=== PATIENT | female | born 1945 | race Caucasian/White ===

== ENCOUNTER → 2020-04-04 12:45 | Outpatient (CLI) | payer MEDICARE, SELFPAY ==
--- NOTE | ~2020-04-04 | MM_ITS ---
EXAMINATION: MM screening [facility] BI w delfino HISTORY: Screening TECHNIQUE: Craniocaudal and mediolateral oblique 3-D tomosynthesis images were obtained and synthetic 2-D images were generated. CAD analysis was submitted and interpreted. COMPARISON: Comparison to multiple prior studies sequentially, with oldest reviewed study dated 12/2014. BREAST PARENCHYMAL COMPOSITION: The breasts are extremely dense, which lowers the sensitivity of mamm ography. FINDINGS: There are developing punctate clustered calcifications in the outer aspect of both breasts, best seen on CC views. There are no suspicious masses or architectural distortion. IMPRESSION: 1. Developing clusters of bilateral breast calcifications. 2. Magnification views are recommended. BI-RADS Category 0: Incomplete: Needs additional imaging evaluation. Reviewed, dictated and finalized at location A.
== END ==
PROVIDERS: PCP Internal Medicine; Visit Provider Nurse Practitioner
DX: Z12.31 Encounter for screening mammogram for malignant neoplasm of breast (principal); R92.8 Other abnormal and inconclusive findings on diagnostic imaging of breast
CPT/HCPCS: 77063; 77067

== ENCOUNTER → 2020-04-19 14:13 | Outpatient (CLI) | payer MEDICARE, SELFPAY ==
--- NOTE | ~2020-04-19 | MM_ITS ---
EXAMINATION: MM diagnostic mammo BI HISTORY: Follow-up breast calcifications TECHNIQUE: Additional 3-D tomosynthesis images of the breasts were performed and synthetic 2-D images were generated. CAD analysis was submitted and interpreted. COMPARISON: Comparison to multiple prior studies sequentially, with oldest reviewed study dated 04/2016. BREAST PARENCHYMAL COMPOSITION: The breasts are extremely dense, which lowers the sensitivity of mamm ography FINDINGS: Bilateral breast calcifications are scattered and relatively monomorphic, likely benign. No suspicious masses or architectural distortion. IMPRESSION: 1. Probable benign bilateral breast calcifications. 2. Recommend 6 month follow-up diagnostic mammogram BI-RADS category 3, probably benign findings. Reviewed, dictated and finalized at location A.
== END ==
PROVIDERS: Visit Provider Obstetrics & Gynecology Gynecology
DX: R92.8 Other abnormal and inconclusive findings on diagnostic imaging of breast (principal)
CPT/HCPCS: 77066

== ENCOUNTER → 2020-12-18 08:04 | Outpatient (CLI) | payer MEDICARE, SELFPAY ==
--- NOTE | ~2020-12-18 | MMUS_ITS ---
EXAMINATION: MM diagnostic yung BI w delfino, US breast BI complete HISTORY: Six-month follow-up of probable benign calcifications TECHNIQUE: ML, MLO and craniocaudal 3-D tomosynthesis images of both breasts were performed and [facility] were generated. Bilateral magnification views. CAD analysis was submitted and interpr eted. High resolution bilateral complete breast ultrasound was performed. COMPARISON: 04/19/2020 bilateral diagnostic digital mammogram BREAST PARENCHYMAL COMPOSITION: The breasts are extremely dense, which lowers the sensitivity of mamm ography. FINDINGS: MAMMOGRAPHIC FINDINGS: Scattered bilateral benign calcifications are noted including occasional calcified microhematomas and multiple benign punctate microcalcifications. Right-sided breast biopsy marker; history of prior benign right breast biopsy. No suspicious mass or architectural distortion or malignant calcification, skin thickening or retract ion is evident. The dense stroma however may obscure masses; bilateral complete breast ultrasound was performed. ULTRASOUND: Right breast: 11:00 5 cm from nipple: Irregular hypoechoic solid lesion measuring 3.1 x 5.6 x 4.2 mm, with some int ernal vascularity on color flow imaging. Ultrasound-guided biopsy is recommended. Left breast: 3:00 5 cm from nipple: There is a circumscribed 4.8 x 5.1 x 3.5 mm hypoechoic lesion with some calcif ications, without internal vascularity or suspicious shadowing 4:00 5 cm from nipple: 2.4 x 2.9 x 3.8 mm simple cyst with through transmission posterior enhancement IMPRESSION: 1. Irregular hypoechoic up to 5.6 mm lesion with internal vascularity at right breast 11:00 5 cm from nipple 2. Ultrasound-guided biopsy of right breast 11:00 lesion is recommended. BI-RADS category 4, suspicious findings. Dr. Toney telephoned the report and ultrasound guided biopsy recommendation on 12/18/2020 at 1015 hours to Nurse Yeimy. Reviewed, dictated and finalized at location [facility]. IMPRESSION: 1. Irregular hypoechoic up to 5.6 mm lesion with internal vascularity at right breast 11:00 5 cm from nipple 2. Ultrasound-guided biopsy of right breast 11:00 lesion is recommended. BI-RADS category 4, suspicious findings. Dr. Toney telephoned the report and ultrasound guided biopsy recommendation on at 1015 hours to Nurse Yeimy.
== END ==
PROVIDERS: Visit Provider Nurse Practitioner
DX: R92.8 Other abnormal and inconclusive findings on diagnostic imaging of breast (principal)
CPT/HCPCS: 76641; 77062; 77066; G0279

== ENCOUNTER 2021-10-04 10:34 | Emergency (ER) | payer MEDICARE, SELFPAY ==
[2021-10-04 10:55] VITALS: BP 146/73; PULSE 84; RESP 20; TEMP 36.7; O2SAT 99
--- NOTE | 2021-10-04 11:05 | ED.GENADULT ---
HPI - General Adult General Chief complaint: Weakness Stated complaint: fatigue Source: patient Mode of arrival: ambulatory Limitations: no limitations History of Present Illness HPI narrative: 76-year-old female presented for complaint of worsening weakness, abdominal pain and diarrhea for over 2 weeks. States I am not functioning right today. She states she has lost 3 pounds in the 2 weeks and has to be careful eating due to food causing worsening abdominal pain and diarrhea. Endorses chronic sinus congestion, scheduled with ENT. Endorses upper back rash x2 weeks, applying calamine lotion with relief, no pain or drainage to lesions. She denies nausea, vomiting, hematochezia or melena, dysuria, frequency, fever or chills, chest pain, shortness of breath. UTD colonoscopy 2 years per pt. Hx partial hysterectomy. Related Data Home Medications Medication Instructions Recorded Confirmed calcium polycarbophil 625 mg tablet 1,250 mg PO DAILY 11/30/19 10/04/21 voqhmthe-edm-gkgnm acid 0.4 1 tablet PO DAILY 11/30/19 09/11/21 mg-lycopene 300 mcg-lutein 250 mcg tablet ergocalciferol (vitamin D2) 50,000 See Rx Instructions PO .COMPLEX 02/27/21 10/04/21 unit tablet estradiol 0.5 mg tablet 0.5 mg PO DAILY 02/27/21 10/04/21 Allergies Allergy/AdvReac Type Severity Reaction Status Date / Time amoxicillin Allergy Unknown Unknown Verified 10/04/21 11:03 naproxen Allergy Unknown unknown Verified 10/04/21 11:03 Penicillins Allergy Unknown unknown Verified 10/04/21 11:03 Sulfa (Sulfonamide Allergy Unknown unknown Verified 10/04/21 11:03 Antibiotics) sulfanilamide Allergy Unknown Unknown Verified 10/04/21 11:03 Review of Systems Review of Systems: CONSTITUTIONAL: Endorses fatigue/weakness. Denies body aches, fever, chills, or sweats. EYES: Denies visual changes, redness, or discharge. ENT: Endorses chronic rhinorrhea, congestion denies sore throat, or otalgia. CARDIOVASCULAR: Denies chest pain, palpitations, or edema. RESPIRATORY: Denies cough or dyspnea. GASTROINTESTINAL: Endorses abdominal pain, diarrhea denies nausea, vomiting GENITOURINARY: Denies dysuria or hematuria. SKIN: Endorses rash, itching MUSCULOSKELETAL: Denies back pain, joint pain, or myalgia. NEUROLOGIC: Denies headache, numbness, tingling, or weakness. PSYCH: Denies depression or anxiety. All systems reviewed & are unremarkable except as noted in HPI and below PMFSH Past Medical History Medical History Left shoulder pain Rotator cuff tendonitis Family History Family History Sibling Family history of schizophrenia Family history of lung cancer Father Family history of alcoholism Family history of chronic obstructive pulmonary disease Patient's father is Mother Family history of diabetes mellitus in first degree relative Other Diabetes mellitus Family history of kidney disease Family history of mental disorder Hypertension Social History Social History Smoking status: Never smoker Alcohol intake: never Substance use: never Gender identity (if verbalized by the patient): Female Comments At time of signature, I have reviewed and agree with nursing past medical, surgical, social and family history unless otherwise noted. Please see nursing chart for further information. Exam Narrative: GENERAL: Ill-appearing, well-nourished, in no acute distress. HEAD: Normocephalic, atraumatic. EYES: EOMI. No redness or drainage. Conjunctivae normal. ENT: Mucous membranes pink and dry. NECK: Normal AROM. Supple. CHEST: No respiratory distress. Clear to auscultation. HEART: Regular rate and rhythm. No murmur appreciated. Normal peripheral pulses. ABDOMEN: Soft, Tender to LLQ, nondistended, normal active bowel sounds. MUSCULOSKELETAL: No bony tend
== END 2021-10-04 11:31 | disposition short-term general hospital (02) ==
PROVIDERS: Emergency Provider Nurse Practitioner Family; PCP Internal Medicine
DX: R10.9 Unspecified abdominal pain (principal); I10 Essential (primary) hypertension; E03.9 Hypothyroidism, unspecified; Z90.711 Acquired absence of uterus with remaining cervical stump
CPT/HCPCS: 99212; G0463

== ENCOUNTER 2021-10-04 11:50 | Emergency (ER) | payer MEDICARE, SELFPAY ==
[2021-10-04] VITALS (7 sets, daily range): BP systolic 136–179; BP diastolic 46–74; PULSE 66–78; RESP 15–18; TEMP 36.3; O2SAT 99–100
--- NOTE | ~2021-10-04 | CT_ITS ---
EXAMINATION: CT abdomen pelvis w con DATE: 10/04/2021 13:13 INDICATION: Abdominal pain, diarrhea, weakness. TECHNIQUE: Computed tomography (CT) of the abdomen and pelvis was performed with 100 cc Omnipaque 350 intravenous contrast. Automated exposure control and iterative reconstruction technique were employe d. Exam dose: 222.74 mGy-cm total exam DLP. COMPARISON: None. FINDINGS: Mild discoid atelectasis or scarring at the bases in the lower lobes. Heart size is normal. No pericardial or pleural effusion. The gallbladder is present. No bile duct or pancreatic duct dilatation is evident. No hepatic, splenic, pancreatic, adrenal space-occupying mass lesion. 6 mm left renal cyst. No renal mass lesion is evident otherwise. No urinary tract calculus or hydroureteronephrosis. There is calcification of the abdominal aorta but no aneurysm. No intraperitoneal or retroperitoneal or pelvic mass lesion or adenopathy or ascites. No evidence of appendicitis. Diverticulosis of sigmoid colon; no CT evidence of diverticulitis. No steve wel obstruction or intraperitoneal free air is detected. Status post hysterectomy. Prominent osteoarthritic change of both hips. IMPRESSION: Diverticulosis of the colon; no CT evidence of diverticulitis No bowel obstruction or free air Left renal 6 cm cyst Reviewed, dictated and finalized at [facility]. Reviewed, dictated and finalized at location [facility]. RIFUGAL SCREEN TENDER
--- NOTE | ~2021-10-04 | XR_ITS ---
XR chest 1V portable DATE: 10/04/2021 12:33 INDICATION: Cough. Weakness. Diminished appetite. TECHNIQUE: 2 portable upright AP views on 10/04/2021 at 1226 and 1227 hours COMPARISON: 12/09/2013 AP chest FINDINGS: Normal heart size. Bilateral hyperinflation. No pulmonary infiltrate or consolidation, pleu ral effusion or pulmonary vascular congestion or pneumothorax. IMPRESSION: Bilateral hyperinflation; no active cardiopulmonary disease Reviewed, dictated and finalized at location [facility]. P MANAGER
--- NOTE | 2021-10-04 12:11 | ECG_ITS ---
Measurements Intervals [place] Rate: 68 P: 86 VA: 157 QRS: -12 QRSD: 81 T: 40 QT: 373 QTc: 399 Interpretive Statements SINUS RHYTHM ATRIAL PREMATURE COMPLEXES BASELINE ARTIFACT- I, II, III, AVR, AVL, AVF, V1-V6 BORDERLINE ECG Electronically Signed On 10-05-2021 8:04:12 PULMONOLOGY PHYSICIAN by Chito Wilks D.O.
--- NOTE | 2021-10-04 12:18 | ED.WEAKNESS ---
HPI - Weakness General Chief complaint: Weakness Stated complaint: abd pain since 09/19 Time Seen by Provider: 10/04/21 12:04 Source: RN notes reviewed History of Present Illness HPI Narrative: Patient presents emergency department from urgent care for abdominal pain diarrhea. Patient states over the past 2 weeks she has been having abdominal pain described as cramping is diffuse throughout the abdomen states is associated with diarrhea over the past 2 weeks with several episodes of diarrhea a day states that when she eats the symptoms do become worse she denies any nausea or vomiting she denies any fevers or chills chest pain shortness of breath or any other symptoms patient going to urgent care initially and was referred to the ER for further evaluation patient states that diarrhea has been improving over the past several days Related Data Home Medications Medication Instructions Recorded Confirmed calcium polycarbophil 625 mg tablet 1,250 mg PO DAILY 11/30/19 10/04/21 gultbngo-nxl-dxopd acid 0.4 1 tablet PO DAILY 11/30/19 10/04/21 mg-lycopene 300 mcg-lutein 250 mcg tablet ergocalciferol (vitamin D2) 50,000 See Rx Instructions PO .COMPLEX 02/27/21 10/04/21 unit tablet estradiol 0.5 mg tablet 0.5 mg PO DAILY 02/27/21 10/04/21 Allergies Allergy/AdvReac Type Severity Reaction Status Date / Time amoxicillin Allergy Unknown Unknown Verified 10/04/21 11:54 naproxen Allergy Unknown unknown Verified 10/04/21 11:54 Penicillins Allergy Unknown unknown Verified 10/04/21 11:54 Sulfa (Sulfonamide Allergy Unknown unknown Verified 10/04/21 11:54 Antibiotics) sulfanilamide Allergy Unknown Unknown Verified 10/04/21 11:54 Review of Systems Review of Systems: Gen.: Denies fevers or chills ENT: Denies congestion Respiratory: Denies shortness of breath or cough CV: Denies chest pain or palpitations GI: See HPI denies burning, urgency, frequency or hematuria Musculoskeletal: Denies back pain or muscle pain Neuro: Reports weakness Skin: Denies rash Except as documented, all other systems reviewed and negative [facility] Past Medical History Medical History (Updated 10/04/21 @ 15:01 by Cristian Sargent DO) Left shoulder pain Rotator cuff tendonitis Family History Family History Sibling Family history of schizophrenia Family history of lung cancer Father Family history of alcoholism Family history of chronic obstructive pulmonary disease Patient's father is Mother Family history of diabetes mellitus in first degree relative Other Diabetes mellitus Family history of kidney disease Family history of mental disorder Hypertension Social History Social History Smoking status: Never smoker Alcohol intake: never Substance use: never Gender identity (if verbalized by the patient): Female Exam Narrative: APPEARANCE: No acute distress, nontoxic, resting in bed EYES: PERRL HEENT: Normocephalic, atraumatic, OMM RESPIRATORY: No respiratory distress Clear to auscultation bilaterally with no rhonchi wheezing or rales. CARDIOVASCULAR regular rate and rhythm without a murmur Abdomen: Soft nondistended diffusely tender to palpation no rebound or guarding MUSCULOSKELETAl: Moves all extremities. No clubbing, cyanosis or edema. NEURO: Awake and alert. Following commands, speech normal, no focal deficits SKIN:: Warm, dry. No rashes lesions or abrasions PSYCHIATRIC: Normal affect/mood, Course Course Emergency Course: Patient states she is feeling better following IV fluids able to get up and ambulate with no difficulty states she has seen Dr Jeffery per GI in past Patient states that they are feeling much better at this time. States abdominal pain has resolved. Repeat abdominal exam shows the patient's abdomen to be soft and nontender. Discussed with patient results of workup and diagnos
[2021-10-04 12:32] LABS: Basophils Absolute Auto 0.1 K/mm3 (0.0-0.1); Basophils Percent Auto 1.1 % (0.2-1.2); Eosinophils Absolute Auto 0.2 K/mm3 (0-0.3); Eosinophils Percent Auto 3.7 % (0-4.4); Hematocrit 43.2 % (37.0-47.0); Hemoglobin 14.3 g/dL (12.0-15.0); Lymphocytes Absolute Auto 1.72 K/mm3 (0.9-3.2); Lymphocytes Percent Auto 32.1 % (18.3-44.2); Mean Corpuscular HGB Conc 33.1 g/dl (32-36); Mean Corpuscular Hemoglobin 31.4 pg (26-34); Mean Corpuscular Volume 94.9 fl (80-100); Mean Platelet Volume 10.2 fl (7.4-10.4); Monocytes Absolute Auto 0.7 K/mm3 (0.1-0.6); Monocytes Percent Auto 12.5 % (2.6-8.5); Neutrophils Absolute Auto 2.7 K/mm3 (1.3-6.7); Neutrophils Percent Auto 50.6 % (45.5-73.1); Platelet Count Result 164 k/mm3 (150-375); Red Blood Count 4.55 M/mm3 (4.2-5.4); Red Cell Distribution Width 11.5 % (11.5-14.5); White Blood Count 5.4 K/mm3 (4.5-10.0)
[2021-10-04] MEDS: SODIUM CHLORIDE 0.9% IV 1,000 ML 999 ML IV CONT (12:40)
[2021-10-04 12:43] LABS: Alanine Aminotransferase 15 U/L (4-35); Albumin Level 4.5 g/dL (3.5-5.1); Alkaline Phosphatase 87 U/L (38-126); Anion Gap 9 mmol/L (8-16); Aspartate Amino Transferase 29 U/L (14-36); Bilirubin,Total 0.7 mg/dL (0.2-1.3); Blood Urea Nitrogen 13 mg/dL (7-17); Calcium 9.8 mg/dL (8.4-10.2); Carbon Dioxide 27 mmol/L (22-30); Chloride 102 mmol/L (98-107); Estimated CRCL calculation 45 ml/min; Estimated Glomerular Filt Rate > 60; Glucose 105 mg/dL (65-110); Lipase 139 U/L (23-300); Potassium 4.1 mmol/L (3.4-5.0); Sodium 138 mmol/L (137-145)
[2021-10-04 12:46] LABS: INR 0.9; Lactic Acid Reflex 1.3 mmol/L (0.7-2.1); Partial Thromboplastin Time 30.5 SECONDS (22.3-36.8); Prothrombin Time 12.4 Seconds (11.1-14.7)
[2021-10-04 13:37] LABS: Add Urine Microscopic? NO; Appearance Urine Clear (Clear); Bilirubin Urine Negative (Negative); Blood Urine Negative (Negative); Color Urine Colorless (Yellow); Glucose Urine UA Negative (Negative); Ketones Urine Negative (Negative); Leukocyte Esterase Ur Negative LEU/UL (Negative); Nitrate Urine Negative (Negative); Protein Urine Negative (Negative); Specific Grav Ur 1.019 (1.001-1.035); Urobilinogen Urine Negative mg/dL (<2.0)
--- NOTE | 2021-10-04 14:39 | PC.NURSE ---
Pt ambulated well to bathroom and back without assistance
== END 2021-10-04 15:13 | disposition home or self-care (01) ==
PROVIDERS: Emergency Provider Emergency Medicine; PCP Internal Medicine
DX: R19.7 Diarrhea, unspecified (principal); R10.9 Unspecified abdominal pain; R53.1 Weakness; N28.1 Cyst of kidney, acquired; K57.90 Diverticulosis of intestine, part unspecified, without perforation or abscess without bleeding; I49.1 Atrial premature depolarization
CPT/HCPCS: 36415; 71045; 74177; 80053; 81003; 83605; 83690; 83735; 85025; 85610; 85730; 93005; 96360; 99284; J7030; Q9967

== ENCOUNTER → 2021-10-06 09:18 | Outpatient (CLI) | payer MEDICARE, SELFPAY ==
[2021-10-06 13:25] LABS: Influenza A QL RT-PCR Negative (Negative); Influenza B QL RT-PCR Negative (Negative); SARS-CoV-2 RNA PCR Negative
== END ==
PROVIDERS: PCP Internal Medicine; Visit Provider Internal Medicine
DX: R68.89 Other general symptoms and signs (principal); Z20.822 Contact with and (suspected) exposure to COVID-19
CPT/HCPCS: 87502; C9803; U0003; U0005

== ENCOUNTER 2022-04-24 12:01 | Emergency (ER) | payer MEDICARE, SELFPAY ==
[2022-04-24 12:09] VITALS: BP 151/64; PULSE 72; RESP 24; TEMP 36.8; O2SAT 100
--- NOTE | 2022-04-24 12:56 | ED.EAR ---
HPI - Ear Problem General Chief complaint: Ear Stated complaint: Lt Ear Irritation Time Seen by Provider: 04/24/22 12:50 History of Present Illness HPI Narrative: Sandy Arreola is a 76 yo female with a PMH of sinusitis chronic, urinary frequency urinary frequency, GERD, hypertension, who comes to [facility] with pain in her left ear. 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 She tried taking rjzo-wau-nfuuiwo ear medication which helped the pain slightly but has worsened in the last 2 days. 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 She tried taking hhxt-wui-qofmdtg your medication which helped the pain slightly but has worsened in the last 2 days. She has sinus drainage and will be returning to her ENT for that Related Data Home Medications Medication Instructions Recorded Confirmed calcium polycarbophil 625 mg 1,250 mg PO DAILY 11/30/19 04/24/22 tablet (FiberCon) tbnbjyaq-izx-baerv acid 0.4 1 tablet PO DAILY 11/30/19 04/24/22 mg-lycopene 300 mcg-lutein 250 mcg tablet (Centrum Silver) ergocalciferol (vitamin D2) 50,000 See Rx Instructions PO .COMPLEX 02/27/21 04/24/22 unit tablet estradiol 0.5 mg tablet 0.5 mg PO DAILY 02/27/21 04/24/22 azelastine 137 mcg (0.1 %) nasal 137 mcg intranasal Q12H 03/23/22 04/24/22 spray aerosol cranberry 400 mg capsule 400 mg PO DAILY 03/23/22 04/24/22 losartan 100 mg tablet mg 04/24/22 04/24/22 Allergies Allergy/AdvReac Type Severity Reaction Status Date / Time amoxicillin Allergy Unknown Unknown Verified 04/24/22 12:12 naproxen Allergy Unknown unknown Verified 04/24/22 12:12 Penicillins Allergy Unknown unknown Verified 04/24/22 12:12 Sulfa (Sulfonamide Allergy Unknown unknown Verified 04/24/22 12:12 Antibiotics) sulfanilamide Allergy Unknown Unknown Verified 04/24/22 12:12 Review of Systems Review of Systems: CONSTITUTIONAL: Denies fever, chills, sweats. EYES: Denies visual changes, redness, discharge. ENT: has rhinorrhea, has hascongestion, sore throat, left otalgia. CARDIOVASCULAR: Denies chest pain, palpitations, edema. RESPIRATORY: Denies dyspnea, wheezing, cough GASTROINTESTINAL: Denies abdominal pain, nausea, vomiting, diarrhea. GENITOURINARY: Denies dysuria, hematuria, abnormal discharge SKIN: Denies rash or itching. NEUROLOGIC: Denies numbness, or focal weakness. PSYCHIATRIC: Denies anxiety or depression. [facility] Past Medical History Medical History Essential (primary) hypertension Left shoulder pain Rhinorrhea Rotator cuff tendonitis Family History Family History Sibling Family history of schizophrenia Family history of lung cancer Father Family history of alcoholism Family history of chronic obstructive pulmonary disease Patient's father is Mother Family history of diabetes mellitus in first degree relative Other Diabetes mellitus Family history of kidney disease Family history of mental disorder Hypertension Social History Social History Smoking status: Never smoker Alcohol intake: never Substance use: never Gender identity (if verbalized by the patient): Female Comments At time of signature, I agree with nursing past medical, surgical, social and family history. There is no relevant family history pertinent to the presenting complaint. minor some Exam Narrative: GENERAL: This is a well-nourished, well-developed patient, in mild distress. HEAD: normocephalic, atraumatic. EYES: Sclera clear/white. Vision is grossly intact. EARS: External ears normal, auditory canals clear on R, erythema of right erythema of right, without drainage, fluid behind TM. Hearing grossly intact. NOSE: External nose normal without nasal discharge, nares without redness, rhinorrhea. THROAT: Mucous membranes moist, posterior pharynx erythema NECK: Neck supple
== END 2022-04-24 13:15 | disposition home or self-care (01) ==
PROVIDERS: Emergency Provider Nurse Practitioner; PCP Internal Medicine
DX: H92.02 Otalgia, left ear (principal); I10 Essential (primary) hypertension; K21.9 Gastro-esophageal reflux disease without esophagitis
CPT/HCPCS: 99213; G0463

== ENCOUNTER 2022-05-01 17:24 | Emergency (ER) | payer MEDICARE, SELFPAY ==
[2022-05-01 17:38] VITALS: BP 130/56; PULSE 100; RESP 18; TEMP 36.2; O2SAT 100
--- NOTE | 2022-05-01 17:54 | ED.GENADULT ---
HPI - General Adult General Chief complaint: Upper Respiratory Infection Stated complaint: sorethroat,weakness History of Present Illness HPI narrative: Patient is a 76-year-old female who [facility] of a generalized weakness that began approximately 1 week ago. Patient is a poor historian. She does report a sore throat, and one episode of diarrhea that occurred at onset. Patient reports her oral intake to be adequate however, states she sips on water throughout the day. She also reports having to stabilize herself against the wall while walking secondary to weakness. She has also been to week to take her daily walks. She had similar symptoms in September 2021. At that time, she was treated for dehydration in [facility] ER. Related Data Home Medications Medication Instructions Recorded Confirmed calcium polycarbophil 625 mg 1,250 mg PO DAILY 11/30/19 04/24/22 tablet (FiberCon) wvhqorrq-yix-ixtrs acid 0.4 1 tablet PO DAILY 11/30/19 04/24/22 mg-lycopene 300 mcg-lutein 250 mcg tablet (Centrum Silver) ergocalciferol (vitamin D2) 50,000 50,000 unit PO WEEKLY 02/27/21 04/24/22 unit tablet estradiol 0.5 mg tablet 0.5 mg PO DAILY 02/27/21 04/24/22 azelastine 137 mcg (0.1 %) nasal 137 mcg intranasal Q12H 03/23/22 04/24/22 spray aerosol cranberry 400 mg capsule 400 mg PO DAILY 03/23/22 04/24/22 losartan 100 mg tablet mg 04/24/22 04/24/22 Allergies Allergy/AdvReac Type Severity Reaction Status Date / Time amoxicillin Allergy Unknown Unknown Verified 05/01/22 17:53 naproxen Allergy Unknown unknown Verified 05/01/22 17:53 Penicillins Allergy Unknown unknown Verified 05/01/22 17:53 Sulfa (Sulfonamide Allergy Unknown unknown Verified 05/01/22 17:53 Antibiotics) sulfanilamide Allergy Unknown Unknown Verified 05/01/22 17:53 Review of Systems Review of Systems: Denies fever, chills, sweats, LOC, abdominal pain, nausea, vomiting, diarrhea, constipation, chest pain, heart palpitations, shortness of breath PMFSH Past Medical History Medical History Essential (primary) hypertension Left shoulder pain Rhinorrhea Rotator cuff tendonitis Family History Family History Sibling Family history of schizophrenia Family history of lung cancer Father Family history of alcoholism Family history of chronic obstructive pulmonary disease Patient's father is Mother Family history of diabetes mellitus in first degree relative Other Diabetes mellitus Family history of kidney disease Family history of mental disorder Hypertension Social History Social History Smoking status: Never smoker Alcohol intake: never Substance use: never Gender identity (if verbalized by the patient): Female Comments I have reviewed and agree with the patient's past medical, surgical, social, and family hx as documented by the RN. There is no relevant family history pertinent to the presenting complaint. Exam Narrative: GENERAL: Frail-appearing, under-nourished, and in no acute distress. HEAD: Normocephalic, atraumatic. No sinus tenderness or facial swelling appreciated. EYES: PERRLA and EOMI. No evidence of erythema, swelling, or drainage. ENT: Bilateral external ears and ear canals normal. Bilateral TMs are normal.No TM perforation. Nares clear, no rhinorrhea or epistaxis. Bilateral turbinates without erythema/ swelling. Mucous membranes moist and pink. Uvula is midline without erythema and swelling. No evidence of petechial rash, cobblestoning, lesions, ulcers, erythema, swelling, exudates, peritonsillar abscess, tenting, or drooling. Breath odor and voice normal. NECK: Supple. No Lymphadenopathy or nuchal rigidity appreciated. CHEST: Bilateral lung neville are clear to auscultation. No
== END 2022-05-01 18:49 | disposition short-term general hospital (02) ==
PROVIDERS: Emergency Provider Nurse Practitioner Family; PCP Internal Medicine
DX: R53.1 Weakness (principal); Z20.822 Contact with and (suspected) exposure to COVID-19; I10 Essential (primary) hypertension
CPT/HCPCS: 81003; 87081; 87426; 87880; 99213; C9803; G0463

== ENCOUNTER 2022-05-01 19:11 | Emergency (ER) | payer MEDICARE, SELFPAY ==
[2022-05-01] VITALS (13 sets, daily range): BP systolic 101–149; BP diastolic 49–95; PULSE 66–94; RESP 12–20; TEMP 36.2; O2SAT 98–100
--- NOTE | ~2022-05-01 | XR_ITS ---
EXAMINATION: XR chest 2V DATE: 05/01/2022 20:26 INDICATION: Weakness. Nausea, vomiting, and diarrhea. TECHNIQUE: Frontal and lateral views of the chest were obtained. COMPARISON: Chest single view 10/04/2021, CT abdomen and pelvis 10/04/2021 FINDINGS: There is no pneumonia, pleural effusion, or pneumothorax. The heart size is normal. There i s mild chronic anterior wedging of multiple thoracic vertebral bodies. IMPRESSION: 1. No acute cardiopulmonary disease. Reviewed, dictated and finalized at location A.
--- NOTE | ~2022-05-01 | CT_ITS ---
EXAMINATION: CT brain wo con DATE: 05/01/2022 21:22 INDICATION: Dizziness. TECHNIQUE: Computed tomography (CT) of the head was performed without intravenous contrast. The mA wa s adjusted according to patient size. Iterative reconstruction technique was employed. The dose-lengt h product was 529.67 mGy-cm. COMPARISON: Head CT 12/09/2013 FINDINGS: There is no intracranial hemorrhage, acute infarction, or abnormal intracranial mass lesion . The ventricles are normal in size. There is mild mucosal thickening in the ethmoid sinuses. There i s a small right mastoid effusion. The orbits are normal. IMPRESSION: 1. Normal brain. Reviewed, dictated and finalized at location A. IMPRESSION: 1. Normal brain.
--- NOTE | 2022-05-01 20:13 | ECG_ITS ---
Measurements Intervals [place] Rate: 69 P: 89 MN: 153 QRS: 18 QRSD: 76 T: 41 QT: 372 QTc: 399 Interpretive Statements SINUS RHYTHM COMPARED TO ECG 10/04/2021 12:09:42 NO SIGNIFICANT CHANGES Electronically Signed On 05-02-2022 13:36:26 CDT by Sandi Mccabe M.D.
--- NOTE | 2022-05-01 21:09 | ED.WEAKNESS ---
HPI - Weakness General Chief complaint: Weakness Stated complaint: sent from r/o dehydration Time Seen by Provider: 05/01/22 20:57 Source: RN notes reviewed History of Present Illness HPI Narrative: Patient presents emergency department from urgent care for weakness. Patient states she has been feeling generally weak over the past 1 week. She states that she initially had had some pain in her right ear approximately a week ago and gone to urgent care and was diagnosed with fluid in her ear and placed on eardrops at that time this did help. States that she has been continue to feel weak and fatigued she states she has not had the energy to do what she normally does she states she did have some nausea earlier this week but has had no nausea at this time she denies any fevers or chills chest pain shortness of breath cough abdominal pain vomiting or diarrhea. States she was tested for strep and COVID at the urgent care that was negative states she has been having mild sore throat denies any unilateral numbness or weakness Related Data Home Medications Medication Instructions Recorded Confirmed calcium polycarbophil 625 mg 1,250 mg PO DAILY 11/30/19 04/24/22 tablet (FiberCon) zenyzbts-fqu-pbzbs acid 0.4 1 tablet PO DAILY 11/30/19 04/24/22 mg-lycopene 300 mcg-lutein 250 mcg tablet (Centrum Silver) ergocalciferol (vitamin D2) 50,000 50,000 unit PO WEEKLY 02/27/21 04/24/22 unit tablet estradiol 0.5 mg tablet 0.5 mg PO DAILY 02/27/21 04/24/22 azelastine 137 mcg (0.1 %) nasal 137 mcg intranasal Q12H 03/23/22 04/24/22 spray aerosol cranberry 400 mg capsule 400 mg PO DAILY 03/23/22 04/24/22 losartan 100 mg tablet mg 04/24/22 04/24/22 Allergies Allergy/AdvReac Type Severity Reaction Status Date / Time amoxicillin Allergy Unknown Unknown Verified 05/01/22 19:48 naproxen Allergy Unknown unknown Verified 05/01/22 19:48 Penicillins Allergy Unknown unknown Verified 05/01/22 19:48 Sulfa (Sulfonamide Allergy Unknown unknown Verified 05/01/22 19:48 Antibiotics) sulfanilamide Allergy Unknown Unknown Verified 05/01/22 19:48 Review of Systems Review of Systems: Gen.: Denies fevers or chills Eyes: Denies eye pain or visual change ENT: Denies congestion Respiratory: Denies shortness of breath or cough CV: Denies chest pain or palpitations GI: Denies abdominal pain reports nausea earlier this week but none at this timeemesis or diarrhea Musculoskeletal: Denies back pain or muscle pain Neuro: Reports weakness Skin: Denies rash Except as documented, all other systems reviewed and negative [facility] Past Medical History Medical History Essential (primary) hypertension Left shoulder pain Rhinorrhea Rotator cuff tendonitis Family History Family History Sibling Family history of schizophrenia Family history of lung cancer Father Family history of alcoholism Family history of chronic obstructive pulmonary disease Patient's father is Mother Family history of diabetes mellitus in first degree relative Other Diabetes mellitus Family history of kidney disease Family history of mental disorder Hypertension Social History Social History Smoking status: Never smoker Alcohol intake: never Substance use: never Gender identity (if verbalized by the patient): Female Exam Narrative: APPEARANCE: No acute distress, nontoxic, resting in bed EYES: EOMI HEENT: Normocephalic, atraumatic, right ear with cerumen impaction left TM is normal in appearance nares patent oral mucosa moist erythema or exudate posterior pharynx uvula midline no trismus tolerating own secretions RESPIRATORY: No respiratory distress Clear to auscultation bilaterally with no rhonchi wheezing or rales. CARDIOVASCULAR: Regular rate and rhythm without murmurs rubs or
[2022-05-01] MEDS: SODIUM CHLORIDE 0.9% IV 1,000 ML 999 ML IV CONT (21:11)
[2022-05-01 21:16] LABS: Basophils Absolute Auto 0.1 K/mm3 (0.0-0.1); Basophils Percent Auto 0.9 % (0.2-1.2); Eosinophils Absolute Auto 0.2 K/mm3 (0-0.3); Eosinophils Percent Auto 2.8 % (0-4.4); Hematocrit 45.7 % (37.0-47.0); Hemoglobin 14.9 g/dL (12.0-15.0); Immature Granulocyte Absolute 0.01 K/mm3 (0.00-0.031); Immature Granulocyte Percent A 0.2 % (0-0.5); Lymphocytes Absolute Auto 1.95 K/mm3 (0.9-3.2); Mean Corpuscular HGB Conc 32.6 g/dl (32-36); Mean Corpuscular Volume 95.2 fl (80-100); Mean Platelet Volume 10.1 fl (7.4-10.4); Monocytes Absolute Auto 0.7 K/mm3 (0.1-0.6); Monocytes Percent Auto 12.9 % (2.6-8.5); Neutrophils Absolute Auto 2.8 K/mm3 (1.3-6.7); Neutrophils Percent Auto 49.2 % (45.5-73.1); Platelet Count Result 193 k/mm3 (150-375); Red Cell Distribution Width 11.9 % (11.5-14.5); White Blood Count 5.7 K/mm3 (4.5-10.0)
[2022-05-01 21:26] LABS: Prothrombin Time 12.3 Seconds (11.1-14.7)
[2022-05-01 21:27] LABS: Partial Thromboplastin Time 29.9 SECONDS (22.3-36.8)
[2022-05-01 21:28] LABS: Alanine Aminotransferase 15 U/L (6-35); Albumin Level 4.9 g/dL (3.5-5.1); Alkaline Phosphatase 85 U/L (38-126); Anion Gap 9 mmol/L (8-16); Aspartate Amino Transferase 37 U/L (14-36); Bilirubin,Total 0.7 mg/dL (0.2-1.3); Blood Urea Nitrogen 14 mg/dL (7-17); Calcium 9.6 mg/dL (8.4-10.2); Carbon Dioxide 28 mmol/L (22-30); Chloride 102 mmol/L (98-107); Creatine Kinase 35 U/L (30-135); Estimated CRCL calculation 44 ml/min; Estimated Glomerular Filt Rate > 60; Glucose 106 mg/dL (65-110); Lipase 46 U/L (23-300); Potassium 4.3 mmol/L (3.4-5.0); Sodium 139 mmol/L (137-145)
[2022-05-01 21:54] LABS: SARS-CoV-2 RNA PCR Negative
--- NOTE | 2022-05-01 23:04 | PC.NURSE ---
Patient ambulated to the bathroom to attempt to provide a urine specimen. Patient ambulated with a steady unassisted gait.
[2022-05-01 23:24] LABS: Appearance Urine Clear (Clear); Bilirubin Urine Negative (Negative); Color Urine Yellow (Yellow); Glucose Urine UA Negative (Negative); Ketones Urine 1+ mg/dL (Negative); Leukocyte Esterase Ur Negative LEU/UL (Negative); Nitrate Urine Negative (Negative); Protein Urine Negative (Negative); Specific Grav Ur 1.015 (1.001-1.035); Urobilinogen Urine 0.2 mg/dL (<2.0); pH Urine 5.5 (5.0-9.0)
[2022-05-01 23:26] LABS: Bacteria Urine Trace /hpf; Mucus Urine Rare /lpf; RBC Urine 0-2 /hpf (0-2); Squamous Epithelial Cell Urine Few /hpf (Few)
[2022-05-01 23:32] LABS: Add Urine Microscopic? YES; Blood Urine Trace (Negative)
--- NOTE | 2022-05-01 23:52 | PC.NURSE ---
Irrigated patients right ear per VORB per ERP. Patient tolerated well.
[2022-05-02 00:23] VITALS: BP 165/70; PULSE 72; RESP 14; O2SAT 97
== END 2022-05-02 00:27 | disposition home or self-care (01) ==
PROVIDERS: Emergency Medicine; Emergency Provider Emergency Medicine; PCP Internal Medicine
DX: R53.1 Weakness (principal); E86.0 Dehydration; H61.21 Impacted cerumen, right ear; I10 Essential (primary) hypertension; Z20.822 Contact with and (suspected) exposure to COVID-19
CPT/HCPCS: 36415; 70450; 71046; 80053; 81001; 81003; 82550; 83690; 85025; 85610; 85730; 87081; 87426; 87880; 93005; 96360; 99284; C9803; J7030; U0003; U0005

== ENCOUNTER 2022-05-10 08:58 | Observation (INO) | payer MEDICARE, SELFPAY ==
[2022-05-10] VITALS (19 sets, daily range): BP systolic 136–189; BP diastolic 56–101; PULSE 65–97; RESP 13–21; TEMP 36.2–37.1; O2SAT 94–100; BMI 18.6
--- NOTE | ~2022-05-10 | US_ITS ---
EXAMINATION: US carotid duplex BI DATE: 05/11/2022 12:04 INDICATION: Dizziness. Cerebral atherosclerosis. TECHNIQUE: Grayscale, color Doppler, and pulsed Doppler images of the cervical carotid arteries were obtained. The degree of vessel stenosis is placed in one of the following categories: normal, <50%, 5 0-69%, >=70% but less than near-occlusion, near-occlusion, or total occlusion. Note that percent sten osis relative to normal distal artery lumen diameter is indirectly measured from velocity measurement s as described by Xavi, et al. Radiology 2003; 229:340-346. COMPARISON: None. FINDINGS: RIGHT: The right common carotid artery (CCA) peak systolic velocity (PSV) is 69 cm/s. The right internal car otid artery (ICA) PSV is 112 cm/s. The right ICA end-diastolic velocity (EDV) is 34 cm/s. The right I CA/CCA PSV ratio is 1.6. Grayscale and color Doppler images yield an estimate of <50% diameter reduct ion from plaque in the ICA. The external carotid artery (ECA) PSV is 162 cm/s. There is antegrade mick w in the right vertebral artery. LEFT: The left CCA PSV is 73 cm/s. The left ICA PSV is 102 cm/s. The left ICA EDV is 32 cm/s. The left ICA/ CCA PSV ratio is 1.4. Grayscale and color Doppler images yield an estimate of <50% diameter reduction from plaque in the ICA. The ECA PSV is 95 cm/s. There is antegrade flow in the left vertebral artery . IMPRESSION: 1. <50% stenosis in the right internal carotid artery. 2. <50% stenosis in the left internal carotid artery. Reviewed, dictated and finalized at location A.
--- NOTE | ~2022-05-10 | CT_ITS ---
EXAMINATION: CT brain wo con INDICATION: Dizziness COMPARISON: 05/01/2022 TECHNIQUE: Standard unenhanced head CT. The dose-length product (DLP) was 605.33 mGy-cm. The mA was a djusted according to patient size. Iterative reconstruction technique was employed. FINDINGS: There is no acute intraparenchymal hemorrhage. No evidence of mass lesion. No evidence of a cute infarction. There is mild periventricular and subcortical hypodensity probably related to small vessel ischemic disease. There is mild prominence of the sulci and ventricles related to cerebral atr ophy. Intracranial calcified cerebral atherosclerosis is noted. There are no extra-axial collections. There is no mass effect or midline shift. The orbits and soft tissues are unremarkable. A small righ t mastoid effusion is noted. IMPRESSION: 1. No acute intracranial abnormality. 2. Age related findings. Reviewed, dictated and finalized at location A.
--- NOTE | 2022-05-10 09:31 | ECG_ITS ---
Measurements Intervals [place] Rate: 89 P: 89 ID: [id number] QRS: 54 QRSD: 81 T: 51 QT: 345 QTc: 420 Interpretive Statements SINUS RHYTHM NORMAL ECG COMPARED TO ECG 05/01/2022 21:06:25 NO SIGNIFICANT CHANGES Electronically Signed On 05-10-2022 12:22:57 CDT by Andres June M.D.
[2022-05-10 10:10] LABS: Basophils Percent Auto 0.7 % (0.2-1.2); Eosinophils Absolute Auto 0.1 K/mm3 (0-0.3); Eosinophils Percent Auto 1.3 % (0-4.4); Hematocrit 40.5 % (37.0-47.0); Hemoglobin 13.2 g/dL (12.0-15.0); Immature Granulocyte Absolute 0.01 K/mm3 (0.00-0.031); Immature Granulocyte Percent A 0.2 % (0-0.5); Lymphocytes Absolute Auto 1.29 K/mm3 (0.9-3.2); Lymphocytes Percent Auto 21.6 % (18.3-44.2); Mean Corpuscular HGB Conc 32.6 g/dl (32-36); Mean Corpuscular Volume 95.1 fl (80-100); Mean Platelet Volume 10.4 fl (7.4-10.4); Monocytes Absolute Auto 0.7 K/mm3 (0.1-0.6); Monocytes Percent Auto 12.4 % (2.6-8.5); Neutrophils Absolute Auto 3.8 K/mm3 (1.3-6.7); Neutrophils Percent Auto 63.8 % (45.5-73.1); Platelet Count Result 172 k/mm3 (150-375); Red Blood Count 4.26 M/mm3 (4.2-5.4); Red Cell Distribution Width 11.9 % (11.5-14.5)
[2022-05-10] MEDS: SODIUM CHLORIDE 0.9% IV 1,000 ML 999 ML IV CONT (10:22)
[2022-05-10 10:26] LABS: Alanine Aminotransferase 15 U/L (6-35); Albumin Level 4.4 g/dL (3.5-5.1); Alkaline Phosphatase 86 U/L (38-126); Anion Gap 12 mmol/L (8-16); Aspartate Amino Transferase 33 U/L (14-36); Bilirubin,Total 0.7 mg/dL (0.2-1.3); Blood Urea Nitrogen 8 mg/dL (7-17); Calcium 9.5 mg/dL (8.4-10.2); Carbon Dioxide 25 mmol/L (22-30); Chloride 99 mmol/L (98-107); Estimated CRCL calculation 51 ml/min; Estimated Glomerular Filt Rate > 60; Glucose 105 mg/dL (65-110); Potassium 3.8 mmol/L (3.4-5.0); Sodium 136 mmol/L (137-145)
[2022-05-10] MEDS: ONDANSETRON INJ 4 MG/2 ML VIAL (10:27)
--- NOTE | 2022-05-10 10:32 | PC.NURSE ---
meclizine held for nausea.
[2022-05-10] MEDS: MECLIZINE HCL 25 MG TABLET PO (11:30)
[2022-05-10 11:47] LABS: Appearance Urine Clear (Clear); Bilirubin Urine Negative (Negative); Glucose Urine UA Negative (Negative); Ketones Urine 1+ mg/dL (Negative); Leukocyte Esterase Ur Negative LEU/UL (Negative); Nitrate Urine Negative (Negative); Protein Urine Negative (Negative); Specific Grav Ur 1.015 (1.001-1.035); Urobilinogen Urine 0.2 mg/dL (<2.0)
[2022-05-10 11:51] LABS: Mucus Urine Rare /lpf; Squamous Epithelial Cell Urine Rare /hpf (Few); WBC Urine 0-3 /hpf
[2022-05-10 11:53] LABS: Add Urine Microscopic? YES; Blood Urine Trace-Intact (Negative); Color Urine Light Yellow (Yellow)
--- NOTE | 2022-05-10 12:47 | ED.GENADULT ---
HPI - General Adult General Chief complaint: Dizziness Stated complaint: ear problems, room spinning Time Seen by Provider: 05/10/22 09:45 History of Present Illness HPI narrative: Patient is a 76-year-old female who presents ER with dizziness. Sudden onset and spinning in nature. Associated with sweats and nausea. She has also been having some vomiting. No fevers or chills or sweats. Reports she has had pressure in her ears and recently saw her doctor who told her she had fluid behind them. She has been trying to get into an ear nose and throat doctor for chronic sinus issues. No fevers or chills or sweats. No chest pain or chest pressure. Symptoms worse with positional change. Related Data Home Medications Medication Instructions Recorded Confirmed calcium polycarbophil 625 mg 1,250 mg PO DAILY 11/30/19 05/07/22 tablet (FiberCon) hsqpjhqq-xja-hxjfj acid 0.4 1 tablet PO DAILY 11/30/19 05/07/22 mg-lycopene 300 mcg-lutein 250 mcg tablet (Centrum Silver) ergocalciferol (vitamin D2) 50,000 50,000 unit PO WEEKLY 02/27/21 05/07/22 unit tablet estradiol 0.5 mg tablet 0.5 mg PO DAILY 02/27/21 05/07/22 azelastine 137 mcg (0.1 %) nasal 137 mcg intranasal Q12H 03/23/22 05/07/22 spray aerosol cranberry 400 mg capsule 400 mg PO DAILY 03/23/22 05/07/22 losartan 100 mg tablet mg 04/24/22 05/07/22 Allergies Allergy/AdvReac Type Severity Reaction Status Date / Time amoxicillin Allergy Unknown Unknown Verified 05/07/22 07:34 naproxen Allergy Unknown unknown Verified 05/07/22 07:34 Penicillins Allergy Unknown unknown Verified 05/07/22 07:34 Sulfa (Sulfonamide Allergy Unknown unknown Verified 05/07/22 07:34 Antibiotics) sulfanilamide Allergy Unknown Unknown Verified 05/07/22 07:34 Review of Systems Review of Systems: All systems reviewed & are unremarkable except as noted in HPI and below Constitutional: Constitutional: Denies chills, Denies fatigue and Denies fever(s) ENT: Reports vertigo, Reports nasal congestion and Denies sore throat Cardiovascular: Cardiovascular: Denies chest pain, Denies rapid heart rate and Denies radiating jaw, neck or arm pain Gastrointestinal: Gastrointestinal: Denies abdominal pain, Reports nausea and Reports vomiting Neurologic: Denies headache(s), Denies focal weakness and Denies numbness PMFSH Past Medical History Medical History (Updated 05/10/22 @ 12:51 by Sam Christianson MD) Essential (primary) hypertension Left shoulder pain Rhinorrhea Rotator cuff tendonitis Surgical History Surgical History (Updated 05/10/22 @ 12:48 by Sam Christianson MD) No pertinent past surgical history Family History Family History Sibling Family history of schizophrenia Family history of lung cancer Father Family history of alcoholism Family history of chronic obstructive pulmonary disease Patient's father is Mother Family history of diabetes mellitus in first degree relative Other Diabetes mellitus Family history of kidney disease Family history of mental disorder Hypertension Social History Social History Smoking status: Never smoker Alcohol intake: never Substance use: never Gender identity (if verbalized by the patient): Female Exam Narrative: GENERAL: Well-appearing, well-nourished, and in no acute distress. HEAD: Normocephalic, atraumatic. EYES: PERRL and EOMI. no nystagmus. ENT: Mucous membranes moist. Pale tympanic membranes bilaterally, no cerumen in the ear canals. CHEST: Clear to auscultation. No respiratory distress. HEART: Regular rate and rhythm. Normal peripheral pulses. ABDOMEN: Soft, nontender, nondistendeds. EXTREMITIES: Normal range of motion. No edema. SKIN: Warm, dry, no rash. NEURO: Alert and oriented x3. Up and ambulatory without difficulty. PSYCH: Normal mood and affect. Course Course
--- NOTE | 2022-05-10 13:25 | PC.NURSE ---
Attempted to discharge patient. Patient reports she feels worse and still feels dizzy. EDP Carmen notified.
[2022-05-10] MEDS: LORazepam (*CRX) 0.5 MG TABLET PO (13:31)
[2022-05-10 14:35] LABS: SARS-CoV-2 RNA PCR Negative
--- NOTE | 2022-05-10 15:10 | PM.IMHP ---
H&P: HPI History of Present Illness Date/Time: 05/10/22 15:10 Chief Complaint: Vertigo Narrative: This is a 76-year-old female patient who does have a history of vertigo which she stated she has had on and off and has a eustachian dysfunction. The patient stated that she was in the emergency room a week ago and that she had some wax in right urine it was cleared out. She was also found to have some fluid in her ears as well. The patient was seen by her primary care doctor 4 days ago any noted that she was feeling back to normal and was drinking plenty of fluids. At that time was recommended that the patient go back to ENT if she is not getting any better. The patient came to the emergency room today with complaints of dizziness. She stated that she got up to the bathroom today in the bathroom was spinning and she has some nausea and was diaphoretic. It also made her sick to her stomach. No fever chills. She has had some pressure in her ears. She has attempted to get into her EENT for chronic sinus issues. The patient was given lactic Ringer's, meclizine, Zofran and Ativan in the emergency room. The patient stated that she felt fine when she is lying flat in that she tried to get up to the bathroom and felt dizzy and nauseated again. CT of the brain was read as no acute intracranial abnormality. Age-related findings. Patient previously had a CT of the brain on 05/01/2022 for the dizziness and and also read as a normal brain. The patient is being admitted to observation status on 05/10/2022. Review of Systems Review of Systems: See HPI All systems reviewed & are unremarkable except as noted in HPI and below Constitutional: Constitutional: Reports as per HPI and Reports no additional constitutional complaints Eyes: Eyes: Reports as per HPI and Reports no additional eye complaints ENT: Reports system reviewed and no additional complaints, except as documented and Reports Normal hearing present Cardiovascular: Cardiovascular: Reports no additional cardiovascular complaints Respiratory: Respiratory: Reports no additional respiratory complaints and Reports no additional respiratory complaints Gastrointestinal: Gastrointestinal: Reports as per HPI and Reports no additional gastrointestinal complaints Musculoskeletal: Musculoskeletal: Reports no additional musculoskeletal complaints Integumentary/Breasts: Skin/Breast: Reports system reviewed and no additional complaints, except as docu and Reports as per HPI Neurologic: Reports system reviewed and no additional complaints, except as documented, Reports as per HPI and Reports Normal hearing present Psychiatric: Psychiatric: Reports no additional psychiatric complaints and Reports as per HPI Endocrine: Endocrine: Reports no additional endocrine complaints Hematologic/Lymphatic: Hematologic/Lymphatic: Reports no additional hematologic/lymphatic complaints Allergic/Immunologic: Allergic/Immunologic: Reports no additional allergic/immunologic complaints [facility] Past Medical History Medical History (Updated 05/10/22 @ 18:51 by Hannah Pinto NP) Acute gastroenteritis Essential (primary) hypertension Hypothyroidism Left shoulder pain Rhinorrhea Rotator cuff tear, left Rotator cuff tendonitis Surgical History Surgical History H/O: hysterectomy Family History Family History Sibling Family history of schizophrenia Family history of lung cancer Father Family history of alcoholism Family history of chronic obstructive pulmonary disease Patient's father is Mother Family history of diabetes mellitus in first degree relative Other Diabetes mellitus Family history of kidney disease Family history of mental disorder Hypertension Social History Social History (Updated 05/10/22 @ 18:41 by Hannah Pinto NP) Social History: The patie
--- NOTE | 2022-05-10 15:37 | ADMGEN ---
This patient, Sandy Arreola, was admitted to Medical Room 248-01. Patient/family oriented to hospital policies and general routines including ID bracelet, bed and alarms, visiting hours, pain management, procedures, bathroom and other care routines, personal items, smoking policy, room service/diet, and visiting hours. Information on how to activate the Rapid Response Team has been discussed. Patient/Family are encouraged to report perceived risks to care and to ask questions if they do not understand what they are told or what they should do.
[2022-05-10] MEDS: LACTATED RINGERS 1,000 ML 100 ML IV CONT (16:24)
[2022-05-10] MEDS: MECLIZINE HCL 12.5 MG TABLET PO (20:14)
[2022-05-10] MEDS: FLUTICASONE PROPIONATE 0.05% NA SPR 16 GM BTL (*BKC) 1 SPRAY NASAL (20:14)
[2022-05-11] VITALS (12 sets, daily range): BP systolic 144–176; BP diastolic 58–77; PULSE 61–67; RESP 12–20; TEMP 36.3–36.7; O2SAT 98–100
--- NOTE | 2022-05-11 | ECHO_ITS ---
Patient Info Name: Sandy Arreola Age: 76 years : 1945 Gender: Female Ht: 64 in Wt: 103 lbs BSA: 1.44 m2 HR: 66 bpm BP: 148 / 58 mmHg Technical Quality: Fair Exam Date: 05/11/2022 9:47 AM Exam Location: [facility] Patient Status: Outpatient Admit Date: 05/10/2022 Staff Ordering Physician: Hannah Pinto NP Relations Specialist: Tony Hong RDCS, RT Attending Provider: Sly Conte MD Referring Physician: Blair GARSIA; Exam Type: CA echo doppler color flow Study Info Indications R42 - Dizziness and giddiness Complete two-dimensional, color flow and Doppler transthoracic echocardiogram is performed. Strain analysis performed. Summary 1. Complete two-dimensional, color flow and Doppler transthoracic echocardiogram is performed. 2. Left ventricular chamber dimension is normal. 3. Left ventricular systolic function is normal, estimated at 60-65%. 4. The left ventricular diastolic function is grade II diastolic dysfunction. 5. E/e' 12 is mildly elevated. 6. Global longitudinal strain is normal at -18.4%. 7. There is mild mitral valve regurgitation. 8. There is trace tricuspid valve regurgitation. 9. No pulmonary hypertension, estimated pulmonary arterial systolic pressure is 31 mmHg. Left Ventricle E/e' 12 is mildly elevated. Global longitudinal strain is normal at -18.4%. Left ventricular chamber dimension is normal. Left ventricular systolic function is normal, estimated at 60-65%. The left ventricular diastolic function is grade II diastolic dysfunction. Right Ventricle Right ventricular systolic function is normal and with normal TAPSE 2.1 cm. Right ventricular chamber dimension is normal. Left Atria Left atrial chamber dimension is normal. Right Atria Right atrial chamber dimension is normal. Aortic Valve The aortic valve is trileaflet. There is no aortic valve stenosis. There is no aortic valve regurgitation. Pulmonic Valve There is no pulmonic regurgitation. Mitral Valve There is no mitral valve stenosis. There is mild mitral valve regurgitation. Tricuspid Valve There is trace tricuspid valve regurgitation. No pulmonary hypertension, estimated pulmonary arterial systolic pressure is 31 mmHg. Pericardium/Pleural There is no pericardial effusion. Inferior Vena Cava Normal inferior vena cava with >50% collapse upon inspiration consistent with normal right atrial pressure, 5 mmHg. Aorta The aortic root size at the sinus of Valsalva is normal. Left Ventricular Outflow Tract Name Value Normal LVOT 2D LVOT Diameter 1.9 cm LVOT Doppler LVOT Peak Gradient 1 mmHg LVOT Mean Gradient 1 mmHg LVOT VTI 12 cm LVOT VTI/AV VTI Ratio 0.6 LVOT Stroke Volume 35 ml LVOT CO 2.7 l/min LVOT CI 1.9 l/min/m2 Mitral Valve Name Value
[2022-05-11] MEDS: LACTATED RINGERS 1,000 ML 100 ML IV CONT ×2 (02:20→14:36)
[2022-05-11 05:32] LABS: Basophils Percent Auto 0.8 % (0.2-1.2); Eosinophils Absolute Auto 0.2 K/mm3 (0-0.3); Eosinophils Percent Auto 4.7 % (0-4.4); Hematocrit 35.9 % (37.0-47.0); Hemoglobin 11.5 g/dL (12.0-15.0); Lymphocytes Absolute Auto 1.56 K/mm3 (0.9-3.2); Lymphocytes Percent Auto 43.3 % (18.3-44.2); Mean Corpuscular Hemoglobin 30.7 pg (26-34); Mean Corpuscular Volume 95.7 fl (80-100); Mean Platelet Volume 10.4 fl (7.4-10.4); Monocytes Absolute Auto 0.5 K/mm3 (0.1-0.6); Monocytes Percent Auto 14.2 % (2.6-8.5); Neutrophils Absolute Auto 1.3 K/mm3 (1.3-6.7); Platelet Count Result 152 k/mm3 (150-375); Red Blood Count 3.75 M/mm3 (4.2-5.4); Red Cell Distribution Width 11.8 % (11.5-14.5); White Blood Count 3.6 K/mm3 (4.5-10.0)
[2022-05-11] MEDS: LEVOTHYROXINE SODIUM 50 MCG TABLET PO (05:32)
[2022-05-11 05:41] LABS: Alanine Aminotransferase 12 U/L (6-35); Albumin Level 3.1 g/dL (3.5-5.1); Alkaline Phosphatase 63 U/L (38-126); Anion Gap 6 mmol/L (8-16); Aspartate Amino Transferase 23 U/L (14-36); Bilirubin,Total 0.5 mg/dL (0.2-1.3); Blood Urea Nitrogen 5 mg/dL (7-17); Calcium 8.5 mg/dL (8.4-10.2); Carbon Dioxide 28 mmol/L (22-30); Chloride 104 mmol/L (98-107); Estimated CRCL calculation 53 ml/min; Estimated Glomerular Filt Rate > 60; Glucose 76 mg/dL (65-110); Lactate Dehydrogenase 138 U/L (120-246); Magnesium 1.9 mg/dL (1.6-2.3); Potassium 3.6 mmol/L (3.4-5.0); Sodium 138 mmol/L (137-145)
[2022-05-11 05:46] LABS: Lactic Acid Reflex 0.7 mmol/L (0.7-2.0)
--- NOTE | 2022-05-11 08:30 | PCPTNOTE ---
attempted to see pt for PT eval ~ 800, pt was out of room for testing.
[2022-05-11] MEDS: MECLIZINE HCL 12.5 MG TABLET PO ×4 (08:54→20:08)
[2022-05-11] MEDS: ACETAMINOPHEN 325 MG TABLET 650 MG PO (08:54)
[2022-05-11] MEDS: calcium polycarbophiL 625 MG TABLET 1250 MG PO (08:54)
[2022-05-11] MEDS: MULTIVITAMINS /C LUTEIN (CENTRUM SILVER) TABLET *BKC 1 TAB PO (08:54)
[2022-05-11] MEDS: FLUTICASONE PROPIONATE 0.05% NA SPR 16 GM BTL (*BKC) 1 SPRAY NASAL ×2 (08:55→20:08)
[2022-05-11] MEDS: LOSARTAN POTASSIUM 100 MG TABLET PO (08:55)
--- NOTE | 2022-05-11 11:15 | PM.IMPN ---
Progress Note: A&P Assessment and Plan (1) Vertigo: Code(s): R42 - Dizziness and giddiness Status: Acute Assessment and Plan: -continue with IV fluid -an order for an echo has been placed -routine Antivert -Flonase -PT OT -anti nausea medicine (2) Essential (primary) hypertension: Code(s): I10 - Essential (primary) hypertension Status: Acute Assessment and Plan: -BP is 148/58 -continue with losartan -Trend BP -Adjust therapy as indicated (3) Hypothyroidism: Code(s): E03.9 - Hypothyroidism, unspecified Status: Acute Assessment and Plan: -TSH 2.060 -continue with levothyroxine (4) Chronic eustachian tube dysfunction: Code(s): H69.80 - Other specified disorders of Eustachian tube, unspecified ear Status: Acute Assessment and Plan: -the patient will need to follow-up with her ENT -restarted Flonase (5) Chronic left shoulder pain: Code(s): M25.512 - Pain in left shoulder; G89.29 - Other chronic pain Status: Acute Assessment and Plan: -the patient stated that this is chronic and she has had 2 MRIs. Time Spent With Patient Time with patient: Greater than 35 minutes Subjective Date/time seen: 05/11/221114 Interval history: 05/11/221114 patient was lying in bed. Patient stated that she was very dizzy at that time. Patient also stated that her ears feel like there is air or bugs line around her. She stated that she feels like her right ear needs to pop in her left ear she feels that issues clogged. She denies any chest pain, shortness of breath, nausea, vomiting, diarrhea, constipation. She also denies any recent illness. She was able to walk around with PT and OT. She did state that the meclizine is making her tired. 05/10/22? 15:10 This is a 76-year-old female patient who does have a history of vertigo which she stated she has had on and off and has a eustachian dysfunction.? The patient stated that she was in the emergency room a week ago and that she had some wax in right urine it was cleared out.? She was also found to have some fluid in her ears as well.? The patient was seen by her primary care doctor 4 days ago any noted that she was feeling back to normal and was drinking plenty of fluids.? At that time was recommended that the patient go back to ENT if she is not getting any better. The patient came to the emergency room today with complaints of dizziness.? She stated that she got up to the bathroom today in the bathroom was spinning and she has some nausea and was diaphoretic.? It also made her sick to her stomach.? No fever chills.? She has had some pressure in her ears.? She has attempted to get into her EENT for chronic sinus issues.? The patient was given lactic Ringer's, meclizine, Zofran and Ativan in the emergency room.? The patient stated that she felt fine when she is lying flat in that she tried to get up to the bathroom and felt dizzy and nauseated again.? CT of the brain was read as no acute intracranial abnormality.? Age-related findings.? Patient previously had a CT of the brain on 05/01/2022 for the dizziness and and also read as a normal brain.? The patient is being admitted to observation status on 05/10/2022. Review of Systems Review of Systems: All systems reviewed & are unremarkable except as noted in HPI and below Exam Const: General: cooperative, healthy appearing, comfortable, no acute distress, well developed, alert, awake, Physically active and tired appearing Nutritional Appearance: average body habitus, well nourished and thin Orientation/consciousness: oriented to person, oriented to place, oriented to time and patient oriented x3 Limitations: no limitations HENMT: Head: normal to inspection, No palpable skull fracture present, normocephalic, atraumatic and abrasion Ears: hearing grossly normal bilaterally, external ears normal and TM's
--- NOTE | 2022-05-11 17:26 | WPDCN ---
Assessment and Plan Assessment and plan (1) Vertigo: Code(s): R42 - Dizziness and giddiness Status: Acute Assessment and Plan: Vertigo and imbalance could be due to several causes including carotid cardiac electrolyte abnormalities low hemoglobin. From an otolaryngologic standpoint if the sodium can tolerate it would recommend lower self diet should be Meniere's type decreasing caffeine stimulant intake should be an atypical type migraine in physical therapy to work on, not only her strength, but vestibular rehabilitation as well should be positional vertigo type. Please have her follow up with me in the office when she is discharged to further discuss this as well as her runny nose. HPI Data of Consult Date/Time: 05/11/22 17:26 Requesting Physician: Sly Conte MD Primary Care Provider: Marco A Sullivan DO Consult Narrative Narrative: Sandy Arreola is a 76 year old female Reports having a vertiginous imbalance episode over the weekend. Still feels weak. Perhaps the post vertigo vestibular neuritis type phenomenon. Patient is admitted reports overall improvement in her imbalance weakness and denies any current vertigo. No antecedent URI that she is aware of. Fullness no change in hearing. No recent audiologic evaluation. CT personally reviewed Um clean otologic structures no fluid. Almost completely normal sinonasal passages some scant mucosal thickening. Skull base is CT head ideal not thin cut. She also reports significant rhinorrhea slightly worse when eating or changing temperatures could represent a vasomotor for nominal reports been allergy tested roberts negative. Reports that Flonase is done nothing she is not sure of the other spray she has tried she says possibly to both ipratropium as well as as lasting. Review of Systems Review of Systems: All systems reviewed & are unremarkable except as noted in HPI and below PMFSH Past Medical History Medical History (Updated 05/10/22 @ 18:51 by Hannah Pinto NP) Acute gastroenteritis Essential (primary) hypertension Hypothyroidism Left shoulder pain Rhinorrhea Rotator cuff tear, left Rotator cuff tendonitis Surgical History Surgical History H/O: hysterectomy Family History Family History Sibling Family history of schizophrenia Family history of lung cancer Father Family history of alcoholism Family history of chronic obstructive pulmonary disease Patient's father is Mother Family history of diabetes mellitus in first degree relative Other Diabetes mellitus Family history of kidney disease Family history of mental disorder Hypertension Social History Social History (Updated 05/10/22 @ 18:41 by Hannah Pinto NP) Social History: The patient lives with her and has 1 child. 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 She is lifelong nonsmoker. Does not use any alcohol marijuana or illicit drugs. Her is a durable power senior trial attorney for healthcare. Code status full code Smoking status: Never smoker Alcohol intake: never Substance use: never Gender identity (if verbalized by the patient): Female Spiritual care concerns: No Meds Home Medications and Allergies Home Medications Medication Instructions Recorded Confirmed Type calcium polycarbophil 625 mg 1,250 mg PO DAILY 11/30/19 05/10/22 History tablet (FiberCon) mnmmzsie-glf-gtdwc acid 0.4 1 tablet PO DAILY 11/30/19 05/10/22 History mg-lycopene 300 mcg-lutein 250 mcg tablet (Centrum Silver) ergocalciferol (vitamin D2) 50,000 50,000 unit PO WEEKLY 02/27/21 05/10/22 History unit tablet estradiol 0.5 mg tablet 0.5 mg PO DAILY 02/27/21 05/10/22 History cranberry 400 mg capsule 400 mg PO DAILY 03/23/22 05/10/22 History losartan 100 mg tablet (Cozaar) 100 mg PO QAM 04/24/22
[2022-05-12] VITALS (8 sets, daily range): BP systolic 155–187; BP diastolic 63–88; PULSE 60–81; RESP 12–16; TEMP 36.6–37; O2SAT 94–99
[2022-05-12] MEDS: LACTATED RINGERS 1,000 ML 100 ML IV CONT (00:37)
[2022-05-12 05:03] LABS: Basophils Absolute Auto 0.1 K/mm3 (0.0-0.1); Basophils Percent Auto 1.2 % (0.2-1.2); Eosinophils Absolute Auto 0.2 K/mm3 (0-0.3); Hematocrit 34.8 % (37.0-47.0); Hemoglobin 11.5 g/dL (12.0-15.0); Immature Granulocyte Absolute 0.01 K/mm3 (0.00-0.031); Immature Granulocyte Percent A 0.2 % (0-0.5); Lymphocytes Absolute Auto 1.47 K/mm3 (0.9-3.2); Lymphocytes Percent Auto 36.5 % (18.3-44.2); Mean Corpuscular Hemoglobin 31.3 pg (26-34); Mean Corpuscular Volume 94.6 fl (80-100); Mean Platelet Volume 9.9 fl (7.4-10.4); Monocytes Absolute Auto 0.6 K/mm3 (0.1-0.6); Monocytes Percent Auto 15.9 % (2.6-8.5); Neutrophils Absolute Auto 1.7 K/mm3 (1.3-6.7); Neutrophils Percent Auto 41.2 % (45.5-73.1); Platelet Count Result 141 k/mm3 (150-375); Red Blood Count 3.68 M/mm3 (4.2-5.4); Red Cell Distribution Width 11.9 % (11.5-14.5)
[2022-05-12 05:26] LABS: Alanine Aminotransferase 12 U/L (6-35); Albumin Level 3.1 g/dL (3.5-5.1); Alkaline Phosphatase 66 U/L (38-126); Anion Gap -3 mmol/L (8-16); Aspartate Amino Transferase 23 U/L (14-36); Bilirubin,Total 0.4 mg/dL (0.2-1.3); Blood Urea Nitrogen 6 mg/dL (7-17); Calcium 8.5 mg/dL (8.4-10.2); Carbon Dioxide 31 mmol/L (22-30); Chloride 105 mmol/L (98-107); Estimated CRCL calculation 53 ml/min; Estimated Glomerular Filt Rate > 60; Glucose 87 mg/dL (65-110); Magnesium 1.8 mg/dL (1.6-2.3); Potassium 3.8 mmol/L (3.4-5.0); Sodium 133 mmol/L (137-145)
[2022-05-12] MEDS: LEVOTHYROXINE SODIUM 50 MCG TABLET PO (05:43)
[2022-05-12] MEDS: MECLIZINE HCL 12.5 MG TABLET PO ×2 (08:12→12:28)
[2022-05-12] MEDS: MULTIVITAMINS /C LUTEIN (CENTRUM SILVER) TABLET *BKC 1 TAB PO (08:12)
[2022-05-12] MEDS: calcium polycarbophiL 625 MG TABLET 1250 MG PO (08:12)
[2022-05-12] MEDS: FLUTICASONE PROPIONATE 0.05% NA SPR 16 GM BTL (*BKC) 1 SPRAY NASAL (08:12)
[2022-05-12] MEDS: LOSARTAN POTASSIUM 100 MG TABLET PO (08:12)
--- NOTE | 2022-05-12 09:45 | PM.DS ---
DS: Admitting Diagnosis Discharge Date 05/12/22 0945 Admitting Diagnosis BPPV DS: Discharge Diagnosis Discharge Diagnosis (1) Vertigo: Code(s): R42 - Dizziness and giddiness Status: Acute Assessment and Plan: -continue with IV fluid -Echo 60-65% with a grade 2 diastolic dysfunction -routine Antivert -Flonase -PT OT -anti nausea medicine (2) Essential (primary) hypertension: Code(s): I10 - Essential (primary) hypertension Status: Acute Assessment and Plan: -BP is 155/84 -continue with losartan -Trend BP -Adjust therapy as indicated (3) Hypothyroidism: Code(s): E03.9 - Hypothyroidism, unspecified Status: Acute Assessment and Plan: -TSH 2.060 -continue with levothyroxine (4) Chronic eustachian tube dysfunction: Code(s): H69.80 - Other specified disorders of Eustachian tube, unspecified ear Status: Acute Assessment and Plan: -the patient will need to follow-up with her ENT -restarted Flonase -Ears appear to be ok (5) Chronic left shoulder pain: Code(s): M25.512 - Pain in left shoulder; G89.29 - Other chronic pain Status: Acute Assessment and Plan: -the patient stated that this is chronic and she has had 2 MRIs. DS: Summary Hospital Course Hospital Course: Patient is 76 year old female past medical history of HTN, Hypothyroidism who presented to the ED with complaints of dizziness. CT of the head showed no acute findings. ENT was consulted and would like her to follow up in the office post discharge. She has been given IV fluids, and meclizine to help control her dizziness. PT/OT has also evaluated the patient and performed proper exercises. She has been doing better with the dizziness. She denies any chest pain, shortness of breath, nausea, vomiting, diarrhea constipation, weakness and fatigue. Status at Discharge Functional status at discharge: independent ambulation Overall status at discharge: patient is progressing back to baseline Time Spent with Patient Time attestation: Total time spent providing and/or coordinating discharge services: 37 minutes Time spent: Greater than 30 minutes Specific discharge activities: Diagnostic testing, chart review, developing a treatment plan, education, care coordination documentation, physical exam, result review Exam Const: General: cooperative, healthy appearing, comfortable, no acute distress, well developed, alert, awake, Physically active and tired appearing Nutritional Appearance: average body habitus, well nourished and thin Orientation/consciousness: oriented to person, oriented to place, oriented to time and patient oriented x3 Limitations: no limitations HENMT: Head: normal to inspection, No palpable skull fracture present, normocephalic, atraumatic and abrasion Ears: hearing grossly normal bilaterally, external ears normal and TM's normal bilaterally (Occasional bubbles noted) General nose exam: Normal external nose present, Normal nares present and No nasal polyps present Mouth: Yes Normal oral and palatal mucosa present Throat: posterior oropharynx normal Eyes: General: appearance normal, both eyes and all related structures Alignment and Position: alignment normal Periorbital: periorbital findings normal Eyelids: eyelids normal Pupils: Equal, round and reactive pupils present and Pupil accommodation reflex normal EOM: EOMs intact bilaterally Neck: Neck: normal visual inspection, full ROM, no lymphadenopathy, trachea midline and supple Thyroid: thyroid normal Carotids: normal carotid upstroke Lymphatic: no lymphadenopathy noted Chest: Chest palpation & inspection: normal inspection of the chest Resp: Effort & Inspection: normal respiratory effort Auscultation: clear to auscultation bilaterally Percussion: percussion normal Cardio: Palpation: normal PMI Rate: regular rate Rhythm: regular rhythm Heart
[2022-05-12] MEDS: LORATADINE/PSEUDOEPHEDRINE (*CRX) 10/240 MG TABLET ER 24 HR 1 TAB PO (10:26)
== END 2022-05-12 14:12 | disposition home or self-care (01) ==
LOC: ANHED 14:01 → ANH2MED 05-11 07:56
PROVIDERS: Emergency Medicine; Nurse Practitioner; Admitting Provider Internal Medicine; Emergency Provider Emergency Medicine; PCP Internal Medicine; Visit Provider Nurse Practitioner
DX: R42 Dizziness and giddiness (principal); I10 Essential (primary) hypertension; E03.9 Hypothyroidism, unspecified; H69.80 Other specified disorders of Eustachian tube, unspecified ear; M25.512 Pain in left shoulder; M77.8 Other enthesopathies, not elsewhere classified; G89.29 Other chronic pain; R61 Generalized hyperhidrosis; I08.1 Rheumatic disorders of both mitral and tricuspid valves; R11.2 Nausea with vomiting, unspecified; J34.89 Other specified disorders of nose and nasal sinuses; Z20.822 Contact with and (suspected) exposure to COVID-19; Z79.3 Long term (current) use of hormonal contraceptives; Z79.51 Long term (current) use of inhaled steroids; Z79.899 Other long term (current) drug therapy; Z82.49 Family history of ischemic heart disease and other diseases of the circulatory system
CPT/HCPCS: 36415; 70450; 80053; 81001; 83605; 83615; 83735; 84443; 85025; 93005; 93306; 93880; 96361; 96374; 97161; 97165; 99285; A9270; C9803; G0378; J2405; J7030; J7120; U0003; U0005

== ENCOUNTER → 2022-06-05 10:37 | Outpatient (CLI) | payer MEDICARE, SELFPAY ==
--- NOTE | ~2022-06-05 | DEXA_ITS ---
Bone Density Report Name: CANDIDA SULLIVAN Age: 76 Sex: Female Ethnicity: White Date of : 1945 Indication: postmenopausal; screening for osteoporosis; parental hip fracture; height loss; hysterectomy; Referring Provider: LAURA, KALI Study: Bone densitometry was performed. Exam Date: June 05, 2022 Accession number: [id number] Bone Density: Region BMD T-score Z-score Classification AP Spine (L1-L4) 1.113 0.6 3.0 Normal Femoral Neck (Left) 0.792 -0.5 1.6 Normal Total Hip (Left) 0.857 -0.7 1.1 Normal Femoral Neck (Right) 0.806 -0.4 1.7 Normal Total Hip (Right) 0.889 -0.4 1.4 Normal Total Hip Mean 0.873 -0.6 1.3 Normal World Health Organization criteria for BMD impression classify patients as: Normal (T-score at or above -1.0), Osteopenia (T-score between -1.0 and -2.5), or Osteoporosis (T-score at or below -2.5). 10-year Fracture Risk: FRAX not reported because: All T-scores for Spine Total, Hip Total, Femoral Neck at or above -1.0 Previous Exams: Region Exam Age BMD T-score BMD Change BMD Change Date g/cm2 vs Baseline vs Previous AP Spine(L1-L4) 06/05/2022 76 1.113 0.6 0.025* -0.015 11/16/2018 73 1.128 0.7 0.040* -0.028* 10/17/2014 69 1.156 1.0 0.068* 0.018 07/27/2012 67 1.138 0.8 0.050* 0.044* 07/08/2009 63 1.094 0.4 0.007 -0.027* 01/26/2007 61 1.121 0.7 0.033* 0.033* 05/03/2006 60 1.088 0.4 Total Hip(Left) 06/05/2022 76 0.857 -0.7 0.047* 0.004 11/16/2018 73 0.853 -0.7 0.043* -0.008 10/17/2014 69 0.861 -0.7 0.051* -0.057* 07/27/2012 67 0.918 -0.2 0.108* 0.048* 07/08/2009 63 0.870 -0.6 0.060* -0.020 01/26/2007 61 0.890 -0.4 0.080* 0.080* 05/03/2006 60 0.810 -1.1 Total Hip(Right) 06/05/2022 76 0.889 -0.4 0.061* -0.022 11/16/2018 73 0.912 -0.2 0.084* 0.056* 10/17/2014 69 0.856 -0.7 0.028* -0.078* 07/27/2012 67 0.934 -0.1 0.106* 0.044* 07/08/2009 63 0.890 -0.4 0.062* -0.014 01/26/2007 61 0.904 -0.3 0.076* 0.076* 05/03/2006 60 0.828 -0.9 *Denotes significance at 95% confidence level, LSC for AP Spine = 0.022 g/cm2, LSC for Total Hip = 0.027 g/cm2 Clinical Information Provided by Patient:
== END ==
PROVIDERS: PCP Internal Medicine; Visit Provider Nurse Practitioner
DX: Z78.0 Asymptomatic menopausal state (principal)
CPT/HCPCS: 77080

== ENCOUNTER → 2022-12-08 14:04 | Outpatient (CLI) | payer MEDICARE, SELFPAY ==
--- NOTE | ~2022-12-08 | XR_ITS ---
EXAMINATION: XR sacroiliac joints min 3V INDICATION: Sacrococcygeal disorders, not elsewhere classified TECHNIQUE: Three views of the sacroiliac joints are obtained. COMPARISON: CT, 10/04/2021 FINDINGS: Bone alignment is normal. There is no fracture. 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 Phleboliths are noted in the pelvis. No abnormal sclerosis or erosion of the sacroiliac joints carolyn ntified. IMPRESSION: 1. No acute osseous abnormality. Reviewed, dictated and finalized at location F.
--- NOTE | ~2022-12-08 | XR_ITS ---
XR hip RT min 2V 12/08/2022 14:34 Indication: Right hip pain Procedure: 2 views right hip Comparison: 11/20/2013 Findings: There is severe osteoarthritis of the right hip. No fracture, subluxation or dislocation. N o focal soft tissue abnormality. No foreign bodies. Impression: 1: Severe osteoarthritis of the right hip. Reviewed, dictated and finalized at location A. Impression: 1: Severe osteoarthritis of the right hip.
== END ==
PROVIDERS: PCP Family Medicine; Visit Provider Nurse Practitioner Family
DX: M53.3 Sacrococcygeal disorders, not elsewhere classified (principal); M16.11 Unilateral primary osteoarthritis, right hip
CPT/HCPCS: 72202; 73502

== ENCOUNTER → 2022-12-31 10:16 | Outpatient (CLI) | payer MEDICARE, SELFPAY ==
--- NOTE | ~2022-12-31 | US_ITS ---
Pelvic ultrasound. Clinical History: Pelvic pain Technique: Realtime transabdominal and transvaginal scanning of the pelvis was performed. Color flow Doppler and Doppler spectral analysis were performed. Findings: The uterus is nonvisualized, consistent with prior hysterectomy. The right ovary is not visualized No significant right ovarian or adnexal mass is seen. The left ovary is not visualized. No significant left ovarian or adnexal mass is seen. There is no evidence of free fluid in the cul de sac. Impression: Status post hysterectomy. Neither ovary visualized. No adnexal mass or free fluid seen. Reviewed, dictated and finalized at location . Impression: Status post hysterectomy. Neither ovary visualized. No adnexal mass or free fluid seen.
== END ==
PROVIDERS: PCP Nurse Practitioner; Visit Provider Nurse Practitioner
DX: R10.2 Pelvic and perineal pain (principal)
CPT/HCPCS: 76830; 76856

== ENCOUNTER 2023-01-09 12:34 | Emergency (ER) | payer MEDICARE, SELFPAY ==
--- NOTE | ~2023-01-09 | CT_ITS ---
EXAMINATION: CT brain wo con INDICATION: Weakness and vertigo COMPARISON: 05/10/2022 TECHNIQUE: Standard unenhanced head CT. The dose-length product (DLP) was 529.67 mGy-cm. The mA was a djusted according to patient size. Iterative reconstruction technique was employed. FINDINGS: There is no acute intraparenchymal hemorrhage. No evidence of mass lesion. No evidence of a cute infarction. There is mild periventricular and subcortical hypodensity probably related to small vessel ischemic disease. There is mild prominence of the sulci and ventricles related to cerebral atr ophy. Intracranial calcified cerebral atherosclerosis is noted. There are no extra-axial collections. There is no mass effect or midline shift. The orbits and soft tissues are unremarkable. A small righ t mastoid effusion is again noted. IMPRESSION: 1. No acute intracranial abnormality. 2. Age related findings. Reviewed, dictated and finalized at location A.
--- NOTE | ~2023-01-09 | XR_ITS ---
EXAMINATION: XR chest 1V INDICATION: Weakness and vertigo TECHNIQUE: AP view of the chest is obtained. COMPARISON: 05/01/2022 FINDINGS: The lungs are free of acute opacities. No pleural effusion or pneumothorax. The cardiomedia stinal silhouette is normal. IMPRESSION: 1. No acute cardiopulmonary abnormality. Reviewed, dictated and finalized at location A.
--- NOTE | 2023-01-09 13:11 | ECG_ITS ---
Measurements Intervals [place] Rate: 68 P: 84 KS: 153 QRS: 10 QRSD: 81 T: 46 QT: 354 QTc: 378 Interpretive Statements SINUS RHYTHM COMPARED TO ECG 05/10/2022 09:37:04 NO SIGNIFICANT CHANGES Electronically Signed On 01-10-2023 13:34:49 CDT by Mathew Duffy M.D.
[2023-01-09 13:26] LABS: Basophils Percent Auto 0.6 % (0.2-1.2); Eosinophils Absolute Auto 0.1 K/mm3 (0-0.3); Eosinophils Percent Auto 2.1 % (0-4.4); Hematocrit 41.1 % (37.0-47.0); Hemoglobin 13.8 g/dL (12.0-15.0); Immature Granulocyte Absolute 0.01 K/mm3 (0.00-0.031); Immature Granulocyte Percent A 0.2 % (0-0.5); Lymphocytes Absolute Auto 1.16 K/mm3 (0.9-3.2); Lymphocytes Percent Auto 21.9 % (18.3-44.2); Mean Corpuscular HGB Conc 33.6 g/dl (32-36); Mean Corpuscular Hemoglobin 32.2 pg (26-34); Monocytes Absolute Auto 0.6 K/mm3 (0.1-0.6); Monocytes Percent Auto 11.9 % (2.6-8.5); Neutrophils Absolute Auto 3.4 K/mm3 (1.3-6.7); Neutrophils Percent Auto 63.3 % (45.5-73.1); Platelet Count Result 181 k/mm3 (150-375); Red Blood Count 4.28 M/mm3 (4.2-5.4); White Blood Count 5.3 K/mm3 (4.5-10.0)
[2023-01-09] MEDS: SODIUM CHLORIDE 0.9% IV 1,000 ML 999 ML IV CONT (13:45)
[2023-01-09 13:50] VITALS: BP 146/71; BP 154/59; PULSE 74; PULSE 76; RESP 20; TEMP 37; O2SAT 100
--- NOTE | 2023-01-09 13:52 | ED.WEAKNESS ---
HPI - Weakness General Chief complaint: Weakness Stated complaint: weakness Time Seen by Provider: 01/09/23 12:57 Source: patient, RN notes reviewed and old records reviewed Mode of arrival: ambulatory Limitations: no limitations History of Present Illness HPI Narrative: This is a 77 year old of female with history of chronic pain, hypothyroid, hypertension who presents for evaluation of weakness. Patient states on Wednesday she had episode of vertigo. She reports history of vertigo so she took meclizine. Her vertigo has resolved but she is having episodes of weakness. She reports dry heaves and nausea. She states at night she notices that she is sweating and she also reports when she tried to get up she feels like she is going to pass out. She also reports chronic issue with right ear popping. She denies URI symptoms recently. She states today she had to sit down due to weakness. She denies headache, blurred vision, chest pain, shortness of breath, dizziness. She denies new focal weakness. She reports left side weakness for several years. Related Data Home Medications Medication Instructions Recorded Confirmed ergocalciferol (vitamin D2) 50,000 50,000 unit PO WEEKLY 02/27/21 09/24/22 unit tablet estradiol 0.5 mg tablet 0.5 mg PO DAILY 02/27/21 09/24/22 cranberry 400 mg capsule 400 mg PO DAILY 03/23/22 09/24/22 antiarthritic combination no.2 900 mg PO 09/24/22 09/24/22 mg tablet (glucosamine-chondroitin) cranberry extract 200 mg capsule 200 mg PO DAILY 09/24/22 09/24/22 hydrocodone 5 mg-acetaminophen 325 1 tablet PO QHS PRN 09/24/22 09/24/22 mg tablet Allergies Allergy/AdvReac Type Severity Reaction Status Date / Time amoxicillin Allergy Unknown Unknown Verified 09/24/22 11:25 naproxen Allergy Unknown unknown Verified 09/24/22 11:25 Penicillins Allergy Unknown unknown Verified 09/24/22 11:25 Sulfa (Sulfonamide Allergy Unknown unknown Verified 09/24/22 11:25 Antibiotics) sulfanilamide Allergy Unknown Unknown Verified 09/24/22 11:25 Review of Systems Constitutional: Constitutional: Reports weakness Eyes: Eyes: Denies change in vision and Denies photophobia ENT: Reports vertigo Cardiovascular: Cardiovascular: Denies syncope, Denies rapid heart rate, Denies irregular heart rhythm, Denies leg edema and Denies dyspnea Respiratory: Respiratory: Denies chest congestion, Denies hemoptysis, Denies excessive phlegm production and Denies dyspnea Gastrointestinal: Gastrointestinal: Denies abdominal pain, Denies hematochezia, Denies diarrhea, Reports nausea and Denies vomiting Genitourinary: Genitourinary: Denies hematuria and Denies dysuria Musculoskeletal: Musculoskeletal: Denies joint swelling, Denies loss of height and Denies muscle weakness Neurologic: Denies confusion, Reports vertigo, Denies syncope, Denies headache(s), Denies numbness and Denies weakness Endocrine: Endocrine: Reports excessive sweating PMFSH Past Medical History Medical History Acute gastroenteritis Essential (primary) hypertension Hypothyroidism Left shoulder pain Rhinorrhea Rotator cuff tear, left Rotator cuff tendonitis Surgical History Surgical History H/O: hysterectomy Family History Family History Sibling Family history of schizophrenia Family history of lung cancer Father Family history of alcoholism Family history of chronic obstructive pulmonary disease Patient's father is Cancer Mother Family history of diabetes mellitus in first degree relative Other Diabetes mellitus Family history of kidney disease Family history of mental disorder Hypertension Social History Social History Social History: The patient lives with her and has 1 child. 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
[2023-01-09 13:55] VITALS: BP 161/74; PULSE 80
[2023-01-09 13:58] VITALS: BP 158/64; PULSE 77
[2023-01-09 13:59] LABS: Alanine Aminotransferase 21 U/L (6-35); Albumin Level 4.4 g/dL (3.5-5.1); Alkaline Phosphatase 72 U/L (38-126); Anion Gap 6 mmol/L (8-16); Aspartate Amino Transferase 34 U/L (14-36); Bilirubin,Total 0.7 mg/dL (0.2-1.3); Blood Urea Nitrogen 17 mg/dL (7-17); Calcium 9.4 mg/dL (8.4-10.2); Carbon Dioxide 27 mmol/L (22-30); Chloride 102 mmol/L (98-107); Estimated Glomerular Filt Rate > 60; Glucose 101 mg/dL (65-110); Magnesium 2.1 mg/dL (1.6-2.3); Potassium 4.1 mmol/L (3.4-5.0); Sodium 135 mmol/L (137-145)
[2023-01-09 14:06] LABS: Partial Thromboplastin Time 26.9 SECONDS (22.3-36.8)
[2023-01-09 14:59] LABS: Appearance Urine Clear (Clear); Bacteria Urine None Seen /hpf; Bilirubin Urine Negative (Negative); Blood Urine Trace (Negative); Color Urine Yellow (Yellow); Glucose Urine UA Negative (Negative); Hyaline Casts Urine Present /lpf; Ketones Urine Negative (Negative); Leukocyte Esterase Ur Negative LEU/UL (Negative); Nitrate Urine Negative (Negative); Non Pathogenic Casts 0-2; Protein Urine Negative (Negative); RBC Urine 0-2 /hpf (0-2); Specific Grav Ur 1.004 (1.001-1.035); Squamous Epithelial Cell Urine Few /hpf (Few); Urobilinogen Urine 0.2 mg/dL (<2.0); WBC Urine 0-5 /hpf; pH Urine 6.5 (5.0-9.0)
[2023-01-09 15:00] LABS: Add Urine Microscopic? YES
[2023-01-09 15:21] VITALS: BP 144/59; PULSE 68; RESP 18; O2SAT 99
--- NOTE | 2023-01-09 15:58 | PC.NURSE ---
patient ambulated with minimal assistance to the restroom. patient states she has a cane at home that she uses prn. advised to use it while she is feeling weaker. patient verbalized understanding
[2023-01-09 16:49] VITALS: BP 154/58; PULSE 70; RESP 18; O2SAT 100
== END 2023-01-09 16:49 | disposition home or self-care (01) ==
PROVIDERS: Emergency Provider General Practice; PCP Family Medicine
DX: R42 Dizziness and giddiness (principal); H61.21 Impacted cerumen, right ear; E03.9 Hypothyroidism, unspecified; I10 Essential (primary) hypertension; Z90.710 Acquired absence of both cervix and uterus
CPT/HCPCS: 36415; 69209; 69210; 70450; 71045; 80053; 81001; 83735; 85025; 85730; 93005; 96360; 99284; J7030

== ENCOUNTER 2023-01-25 13:47 | Outpatient (CLI) | payer MEDICARE, SELFPAY | END 2023-01-25 13:48 | disposition home or self-care (01) | LOC: ANHAUDIO 13:48 | PROVIDERS: PCP Family Medicine; Visit Provider Otolaryngology | DX: H90.3 Sensorineural hearing loss, bilateral (principal); H81.10 Benign paroxysmal vertigo, unspecified ear | CPT/HCPCS: 92557; 92567 ==

== ENCOUNTER 2023-06-02 00:53 | Inpatient (IN) | payer MEDICARE, SELFPAY ==
[2023-06-02] VITALS (37 sets, daily range): BP systolic 120–163; BP diastolic 52–76; PULSE 68–107; RESP 12–21; TEMP 36.7–37.2; O2SAT 94–100
--- NOTE | ~2023-06-02 | XR_ITS ---
Clinical Indication: Weakness AP and lateral views of the chest: Comparison: 01/09/2023 Findings: Minimal left pleural effusion present. Right lung is clear. Cardiomediastinal silhouette i s within normal limits. Bones and soft tissues are unremarkable. Impression: Minimal left pleural effusion. Reviewed, dictated and finalized at location . Impression: Minimal left pleural effusion.
--- NOTE | ~2023-06-02 | CT_ITS ---
CT of the Abdomen and Pelvis: Indication: Abdominal pain Technique: 2.5 mm axial scans were obtained through the abdomen and pelvis following intravenous adm inistration of 100 cc of Omnipaque 350. Dose reduction technique was used on this scan by utilizing a utomated exposure control and iterative reconstruction technique. The dose-length product (DLP) was 2 63.56 mGy-cm. COMPARISON: 10/04/2021 Findings: Scans through the lung bases are unremarkable. The liver, spleen, pancreas, gallbladder, adrenals and kidneys are within normal limits. There are at herosclerotic calcifications of the aorta. No lymphadenopathy. No bowel obstruction seen. Probable under distention of the ascending and transverse colon rather audrey n true wall thickening. Images through the pelvis were performed. Urinary bladder unremarkable. No adnexal mass seen. No asci irma. Impression: No definite abnormality seen. Probable under distention of ascending and transverse colon rather than wall thickening. Correlate for any possibility of colitis. Reviewed, dictated and finalized at location . Impression: No definite abnormality seen. Probable under distention of ascending and transv erse colon rather than wall thickening. Correlate for any possibility of coliti s.
--- NOTE | ~2023-06-02 | XR_ITS ---
EXAMINATION: XR abdomen/kub 1V DATE: 06/04/2023 12:46 INDICATION: Abdominal pain and diarrhea TECHNIQUE: A supine view of the abdomen was obtained. COMPARISON: 06/02/2023 FINDINGS: Posterior bowel gas throughout the abdomen and pelvis. Calcific location left upper quadrant correspo nding to a dystrophic calcification at the tail of pancreas on prior CT which could represent sequela of chronic pancreatitis. Multiple phleboliths in the left hemipelvis. Mild lumbar levocurvature with mild spondylosis. Moderate to severe bilateral hip osteoarthritis. IMPRESSION: 1. Nonspecific diffuse posterior bowel gas. No dilated loops of bowel to suggest obstruction. Reviewed, dictated and finalized at location A. IMPRESSION: 1. Nonspecific diffuse posterior bowel gas. No dilated loops of bowel to sugges t obstruction.
[2023-06-02 01:30] LABS: Basophils Percent Auto 0.2 % (0.2-1.2); Hematocrit 42.8 % (37.0-47.0); Immature Granulocyte Absolute 0.02 K/mm3 (0.00-0.031); Immature Granulocyte Percent A 0.2 % (0-0.5); Immature Platelet Fraction Pct 4.5 % (0.9-11.2); Lymphocytes Percent Auto 9.9 % (18.3-44.2); Mean Corpuscular HGB Conc 32.7 g/dl (32-36); Mean Corpuscular Hemoglobin 31.3 pg (26-34); Mean Corpuscular Volume 95.5 fl (80-100); Mean Platelet Volume 10.4 fl (7.4-10.4); Monocytes Absolute Auto 1.3 K/mm3 (0.1-0.6); Monocytes Percent Auto 15.6 % (2.6-8.5); Neutrophils Percent Auto 74.1 % (45.5-73.1); Platelet Count Result 115 k/mm3 (150-375); Red Blood Count 4.48 M/mm3 (4.2-5.4); Red Cell Distribution Width 11.3 % (11.5-14.5); White Blood Count 8.1 K/mm3 (4.5-10.0)
[2023-06-02 01:35] LABS: Alanine Aminotransferase 17 U/L (6-35); Albumin Level 4.2 g/dL (3.5-5.1); Alkaline Phosphatase 86 U/L (38-126); Anion Gap 15 mmol/L (8-16); Aspartate Amino Transferase 38 U/L (14-36); Bilirubin,Total 0.7 mg/dL (0.2-1.3); Blood Urea Nitrogen 10 mg/dL (7-17); Calcium 8.6 mg/dL (8.4-10.2); Carbon Dioxide 18 mmol/L (22-30); Chloride 99 mmol/L (98-107); Estimated CRCL calculation 51 ml/min; Estimated Glomerular Filt Rate > 60; Glucose 90 mg/dL (65-110); Potassium 3.7 mmol/L (3.4-5.0); Sodium 132 mmol/L (137-145)
--- NOTE | 2023-06-02 01:49 | ED.GENADULT ---
HPI - General Adult General Chief complaint: Weakness Stated complaint: im very sick, i think im dehydrated Time Seen by Provider: 06/02/23 01:15 History of Present Illness HPI narrative: Patient brought to the emergency department by her . She has been sick for the past 2 days. Initially started with vomiting then dry heaving. She has not been able to keep anything down for 2 days. She has generalized abdominal discomfort but mostly in the epigastric region. She has loose stools but denies diarrhea. Denies fevers. She is generally weak and cannot ambulate without assistance tonight. Denies chest pain and headache. Patient is very pleasant but appears very weak Related Data Home Medications Medication Instructions Recorded Confirmed ergocalciferol (vitamin D2) 50,000 50,000 unit PO WEEKLY 02/27/21 03/08/23 unit tablet estradiol 0.5 mg tablet 0.5 mg PO DAILY 02/27/21 03/08/23 hydrocodone 5 mg-acetaminophen 325 1 tablet PO QHS PRN 09/24/22 03/08/23 mg tablet cranberry 400 mg capsule 4,200 mg PO DAILY 01/11/23 03/08/23 Allergies Allergy/AdvReac Type Severity Reaction Status Date / Time amoxicillin Allergy Unknown Unknown Verified 03/08/23 13:14 naproxen Allergy Unknown unknown Verified 03/08/23 13:14 Penicillins Allergy Unknown unknown Verified 03/08/23 13:14 Sulfa (Sulfonamide Allergy Unknown unknown Verified 03/08/23 13:14 Antibiotics) sulfanilamide Allergy Unknown Unknown Verified 03/08/23 13:14 Review of Systems Review of Systems: Negative except what is documented in the HPI [facility] Past Medical History Medical History Acute gastroenteritis Essential (primary) hypertension Hypothyroidism Left shoulder pain Rhinorrhea Rotator cuff tear, left Rotator cuff tendonitis Surgical History Surgical History H/O: hysterectomy Family History Family History Sibling Family history of schizophrenia Family history of lung cancer Father Family history of alcoholism Family history of chronic obstructive pulmonary disease Patient's father is Cancer Mother Family history of diabetes mellitus in first degree relative Other Diabetes mellitus Family history of kidney disease Family history of mental disorder Hypertension Social History Social History (Updated 03/08/23 @ 13:17 by Regina Cancino) Social History: The patient lives with her and has 1 child. 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 She is lifelong nonsmoker. Does not use any alcohol marijuana or illicit drugs. Her is a durable power trade mark attorney for healthcare. Code status full code Caffeine-coffee Smoking status: Never smoker Alcohol intake: never Substance use: never Substance use type: does not use Lack of Transportation: No Lack of Food: Never True Concerned About Future Housing: No Difficulty Paying Gas/Electric Bills: No Difficulty Paying for Meds: No Currently Unemployed: No Education: Bachelor's Degree Difficulty w/ Childcare or Family Care: No Gender identity (if verbalized by the patient): Female Spiritual care concerns: No Exam Narrative: GENERAL: Well-appearing, well-nourished, and in no acute distress. Pale and generally weak HEAD: Normocephalic, atraumatic. EYES: PERRLA and EOMI. ENT: Nares clear, no rhinorrhea or epistaxis. Mucous membranes moist. NECK: Supple. CHEST: Clear to auscultation. No respiratory distress. HEART: Regular rate and rhythm. ABDOMEN: Soft, nondistended. Epigastric tenderness EXTREMITIES: Normal range of motion. No edema. SKIN: Warm, dry, no rash. NEURO: No focal deficits. Alert and oriented x3. PSYCH: Normal mood and affect. Course Course Emergency Course: Differential diagnosis includes but not limited to pancreatitis, acute c
[2023-06-02 02:02] LABS: Influenza A QL RT-PCR Negative (Negative); Influenza B QL RT-PCR Negative (Negative); RSV RNA, RT-PCR Negative (Negative); SARS-CoV-2 RNA PCR Positive (Negative)
[2023-06-02] MEDS: SODIUM CHLORIDE 0.9% IV 1,000 ML 999 ML IV CONT ×2 (02:31→04:55)
[2023-06-02] MEDS: MORPHINE SULFATE (*CRX) 2 MG/ML INJ IV PUSH (02:33)
[2023-06-02] MEDS: ONDANSETRON INJ 4 MG/2 ML VIAL IV PUSH (02:33)
[2023-06-02 02:59] LABS: Troponin I 0.022 ng/mL (0.000-0.034)
[2023-06-02 03:17] LABS: Appearance Urine Cloudy (Clear); Bacteria Urine Rare /hpf; Bilirubin Urine Negative (Negative); Blood Urine 2+ (Negative); Color Urine Yellow (Yellow); Glucose Urine UA Negative (Negative); Ketones Urine 3+ mg/dL (Negative); Leukocyte Esterase Ur Negative LEU/UL (Negative); Nitrate Urine Negative (Negative); Non Pathogenic Casts 0-2; Protein Urine Trace mg/dL (Negative); Specific Grav Ur 1.026 (1.001-1.035); Squamous Epithelial Cell Urine Moderate /hpf (Few); Urobilinogen Urine 0.2 mg/dL (<2.0); WBC Urine 0-5 /hpf; pH Urine 5.5 (5.0-9.0)
[2023-06-02 03:22] LABS: Add Urine Microscopic? YES
[2023-06-02 05:42] LABS: Troponin I 0.032 ng/mL (0.000-0.034)
--- NOTE | 2023-06-02 06:16 | PM.IMHP ---
H&P: HPI History of Present Illness Date/Time: 06/02/23 06:16 Chief Complaint: Patient brought to the ER for evaluation by her feeling very weak sick and tired for last couple days Narrative: Our patient is a 77 years old white female whose was diagnosed with COVID-19 4 days ago. Patient has been sick for last couple of days, barely eating or drinking anything, she has some loose stools vomiting and dry heaving. She got so weak that it became hard for her to walk tonight. She asked her to bring her to the ER for evaluation. Workup was done in the ER which showed COVID-19. She was treated in the ER and IV hydration given but just felt very weak and tired and could not go home. she is being admitted for IV remdesivir course, medical management and close monitoring. Review of Systems Review of Systems: she denies any chest pain, fever rigor chills, abdominal pain or loss of consciousness All systems reviewed & are unremarkable except as noted in HPI and below PMFSH Past Medical History Medical History Acute gastroenteritis Essential (primary) hypertension Hypothyroidism Left shoulder pain Rhinorrhea Rotator cuff tear, left Rotator cuff tendonitis Surgical History Surgical History H/O: hysterectomy Family History Family History Sibling Family history of schizophrenia Family history of lung cancer Father Family history of alcoholism Family history of chronic obstructive pulmonary disease Patient's father is Cancer Mother Family history of diabetes mellitus in first degree relative Other Diabetes mellitus Family history of kidney disease Family history of mental disorder Hypertension Social History Social History Social History: The patient lives with her and has 1 child. 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 She is lifelong nonsmoker. Does not use any alcohol marijuana or illicit drugs. Her is a durable power corporate attorney for healthcare. Code status full code Caffeine-coffee Smoking status: Never smoker Alcohol intake: never Substance use: never Substance use type: does not use Lack of Transportation: No Lack of Food: Never True Concerned About Future Housing: No Difficulty Paying Gas/Electric Bills: No Difficulty Paying for Meds: No Currently Unemployed: No Education: Bachelor's Degree Difficulty w/ Childcare or Family Care: No Gender identity (if verbalized by the patient): Female Spiritual care concerns: No Meds Home Medications and Allergies Home Medications Medication Instructions Recorded Confirmed Type ergocalciferol (vitamin D2) 50,000 50,000 unit PO WEEKLY 02/27/21 03/08/23 History unit tablet estradiol 0.5 mg tablet 0.5 mg PO DAILY 02/27/21 03/08/23 History hydrocodone 5 mg-acetaminophen 325 1 tablet PO QHS PRN 09/24/22 03/08/23 History mg tablet ipratropium bromide 42 mcg (0.06 2 spray intranasal TID #15 mL 10/27/22 03/08/23 Rx %) nasal spray cranberry 400 mg capsule 4,200 mg PO DAILY 01/11/23 03/08/23 History losartan 100 mg tablet (Cozaar) 100 mg PO QAM #90 tabs 04/13/23 Rx levothyroxine 50 mcg tablet 50 mcg PO DAILY #90 tabs 05/10/23 Rx Allergies Allergy/AdvReac Type Severity Reaction Status Date / Time amoxicillin Allergy Unknown Unknown Verified 03/08/23 13:14 naproxen Allergy Unknown unknown Verified 03/08/23 13:14 Penicillins Allergy Unknown unknown Verified 03/08/23 13:14 Sulfa (Sulfonamide Allergy Unknown unknown Verified 03/08/23 13:14 Antibiotics) sulfanilamide Allergy Unknown Unknown Verified 03/08/23 13:14 Vital Signs Vital Signs - 24 hr 06/02/23 01:03 06/02/23 01:47 06/02/23 01:45 Temperature 37.2 C Pulse Rate 92 86 87 Resp
--- NOTE | 2023-06-02 07:01 | ADMGEN ---
This patient, Sandy Arreola, was admitted to 2 Medical Room 257-01. Patient/family oriented to hospital policies and general routines including ID bracelet, bed and alarms, visiting hours, pain management, procedures, bathroom and other care routines, personal items, smoking policy, room service/diet, and visiting hours. Information on how to activate the Rapid Response Team has been discussed. Patient/Family are encouraged to report perceived risks to care and to ask questions if they do not understand what they are told or what they should do.
[2023-06-02 07:41] LABS: Prothrombin Time 14.1 Seconds (11.1-14.7)
[2023-06-02] MEDS: REMDESIVIR 200 MG/NS 250 ML 200 MG/250 ML BAG 250 MG IVPB (08:46)
[2023-06-02] MEDS: ENOXAPARIN 40 MG/0.4 ML SYRINGE SUB-Q (08:47)
[2023-06-02] MEDS: ZINC SULFATE 220 MG CAPSULE PO (08:47)
[2023-06-02] MEDS: ASCORBIC ACID 500 MG TABLET PO (08:47)
[2023-06-02] MEDS: SODIUM CHLORIDE 0.9% IV 1,000 ML 75 ML IV CONT ×2 (10:28→23:37)
[2023-06-02] MEDS: IPRATROPIUM NASAL SPRAY 0.06% 15 ML BOTTLE 2 SPRAY NASAL (14:53)
[2023-06-02] MEDS: ACETAMINOPHEN 325 MG TABLET 650 MG PO (14:53)
[2023-06-03 01:31] VITALS: BP 151/53; PULSE 78; RESP 18; TEMP 36.3; O2SAT 99
[2023-06-03] MEDS: MAG HYDROX/AL HYDROX/SIMETH 30 ML UDC PO (04:20)
[2023-06-03 05:32] VITALS: BP 154/79; PULSE 89; RESP 18; TEMP 36.7; O2SAT 97
[2023-06-03] MEDS: LEVOTHYROXINE SODIUM 50 MCG TABLET PO (05:46)
--- NOTE | 2023-06-03 06:37 | PC.NURSE ---
On 06/02/23-06/03/2023, the RN license pending, Shaan Lopez, provided care and completed [employer] documentation on this patient. I have reviewed the RN's documentation and agree with the findings.
[2023-06-03 06:46] LABS: Basophils Percent Auto 0.2 % (0.2-1.2); Hematocrit 40.6 % (37.0-47.0); Hemoglobin 13.2 g/dL (12.0-15.0); Immature Granulocyte Absolute 0.01 K/mm3 (0.00-0.031); Immature Granulocyte Percent A 0.2 % (0-0.5); Immature Platelet Fraction Pct 4.7 % (0.9-11.2); Lymphocytes Percent Auto 10.2 % (18.3-44.2); Mean Corpuscular HGB Conc 32.5 g/dl (32-36); Mean Corpuscular Hemoglobin 30.5 pg (26-34); Mean Corpuscular Volume 93.8 fl (80-100); Mean Platelet Volume 10.8 fl (7.4-10.4); Monocytes Absolute Auto 0.5 K/mm3 (0.1-0.6); Monocytes Percent Auto 9.4 % (2.6-8.5); Neutrophils Absolute Auto 3.9 K/mm3 (1.3-6.7); Platelet Count Result 107 k/mm3 (150-375); Red Blood Count 4.33 M/mm3 (4.2-5.4); Red Cell Distribution Width 11.4 % (11.5-14.5); White Blood Count 4.9 K/mm3 (4.5-10.0)
[2023-06-03 06:55] LABS: Alanine Aminotransferase 17 U/L (6-35); Anion Gap 9 mmol/L (8-16); Blood Urea Nitrogen 10 mg/dL (7-17); Calcium 8.1 mg/dL (8.4-10.2); Carbon Dioxide 22 mmol/L (22-30); Chloride 104 mmol/L (98-107); Estimated CRCL calculation 59 ml/min; Estimated Glomerular Filt Rate > 60; Glucose 88 mg/dL (65-110); Magnesium 1.9 mg/dL (1.6-2.3); Phosphorus 1.6 mg/dL (2.5-4.5); Potassium 3.3 mmol/L (3.4-5.0); Sodium 135 mmol/L (137-145)
[2023-06-03 09:45] VITALS: BP 157/62; PULSE 93; RESP 16; TEMP 37.1; O2SAT 99
[2023-06-03] MEDS: REMDESIVIR 100 MG/NS 250 ML 100 MG/250 ML BAG 250 MG IVPB (09:49)
[2023-06-03] MEDS: estradioL 0.5 MG TABLET PO (09:50)
[2023-06-03] MEDS: ASCORBIC ACID 500 MG TABLET PO (09:50)
[2023-06-03] MEDS: ENOXAPARIN 40 MG/0.4 ML SYRINGE SUB-Q (09:50)
[2023-06-03] MEDS: LOSARTAN POTASSIUM 100 MG TABLET PO (09:50)
[2023-06-03] MEDS: ZINC SULFATE 220 MG CAPSULE PO (09:50)
--- NOTE | 2023-06-03 10:36 | PM.IMPN ---
Progress Note: A&P Assessment and Plan (1) COVID: Code(s): U07.1 - COVID-19 Status: Acute Assessment and Plan: Feeling better. More energy today. Oxygen saturations are fine. Continue supportive care (2) Weakness: Code(s): R53.1 - Weakness Status: Acute (3) Unstable gait: Code(s): R26.81 - Unsteadiness on feet Status: Acute (4) Sensorineural hearing loss of combined sites, bilateral: Code(s): H90.3 - Sensorineural hearing loss, bilateral Status: Acute (5) Essential (primary) hypertension: Code(s): I10 - Essential (primary) hypertension Status: Acute (6) Hypothyroidism: Code(s): E03.9 - Hypothyroidism, unspecified Status: Acute (7) Chronic left shoulder pain: Code(s): M25.512 - Pain in left shoulder; G89.29 - Other chronic pain Status: Acute (8) Chronic low back pain: Code(s): M54.5 - Low back pain; G89.29 - Other chronic pain Status: Acute (9) Rotator cuff tendonitis: Qualifiers: Laterality: left Qualified Code(s): M75.82 - Other shoulder lesions, left shoulder Code(s): M75.80 - Other shoulder lesions, unspecified shoulder Status: Acute (10) Left shoulder pain: Qualifiers: Chronicity: chronic Qualified Code(s): M25.512 - Pain in left shoulder; G89.29 - Other chronic pain Code(s): M25.512 - Pain in left shoulder Status: Acute (11) Nausea vomiting and diarrhea: Code(s): R11.2 - Nausea with vomiting, unspecified; R19.7 - Diarrhea, unspecified Status: Acute Subjective Date/time seen: 06/03/23 10:36 Interval history: No complaints Exam Narrative: PHYSICAL EXAMINATION: Vital signs: Please see the chart General physical exam: patient feels very weak and tired, lying in bed in the ER home, finds difficult to walk Head/eyes: Atraumatic, EOMI, PERRLA ENT: +dry mucous membranes, nasal passages clear Neck: Supple, full range of motion, trachea midline CVS: S1 + S2, regular rate and rhythm, no murmurs Respiratory: Bilaterally decreased air entry in both lung neville, mild B/L crackles, symmetric chest expansion, no distress Abdomen: Soft, non-tender, bowel sounds +ve, no organomegaly Extremities: No clubbing, no cyanosis, no edema, no calf tenderness Musculoskeletal: Moves all, decreased range of motion, no muscle spasms Skin: Warm, dry, no jaundice, no cyanosis Neurological: Awake, alert, oriented x 3, cranial nerves II-XII intact, no focal neurological deficits Psychiatric: Normal mood, non suicidal Objective Data Vital Signs Vital Signs: Vital Signs - 24 hr 06/02/23 14:00 06/02/23 18:00 06/02/23 20:33 Temperature 98.7 F 98.0 F 98.4 F Pulse Rate 82 68 74 Respiratory Rate 19 18 18 Blood Pressure 141/62 H 146/66 H 163/71 H Pulse Oximetry 100 99 97 Oxygen Delivery 06/02/23 20:00 06/03/23 01:31 06/03/23 05:32 Temperature 97.4 F L 98.1 F Pulse Rate 78 89 Respiratory Rate 18 18 Blood Pressure 151/53 H 154/79 H Pulse Oximetry 99 97 Oxygen Delivery Room Air Intake/Output Intake/Output: Intake & Output 05/31/23 06/01/23 06/02/23 06/03/23 23:59 23:59 23:59 23:59 Intake Total 3510 220 Output Total 800 Balance 3510 -580 Meds/Results Medications: Active Medications Generic Name Dose Route Start Last Admin Trade Name Freq PRN Reason Stop Dose Admin Acetaminophen 650 mg 06/02/23 06:34 06/02/23 14:53 Acetaminophen 325 Mg Tablet PO 650 mg Q4H PRN Administration Mild Pain (1-3) or Fever Hydrocodone Bitart/Acetaminophen 1 tab 06/02/23 11:10 Hydrocodone/Acetaminophen (*Crx) 5-325 Mg Tablet PO QHS PRN Pain Al Hydrox/Mg Hydrox/Simethicone 30 ml 06/02/23 06:34 06/03/23 04:20 Mag Hydrox/Al Hydrox/Simeth 30 Ml Udc PO 30 ml QID PRN Administration Dyspepsia Ascorbic Acid 500 mg 06/02/23 09:00 06/03/23 09:50 Ascorbic Acid 500 Mg Tablet PO 500 mg
[2023-06-03] MEDS: SODIUM CHLORIDE 0.9% IV 1,000 ML 75 ML IV CONT (14:05)
[2023-06-03 16:00] VITALS: BP 155/64; PULSE 85; RESP 16; TEMP 37.6; O2SAT 98
[2023-06-03] MEDS: IPRATROPIUM NASAL SPRAY 0.06% 15 ML BOTTLE 2 SPRAY NASAL (17:53)
[2023-06-03] MEDS: LIDOCAINE 5% PATCH 1 PATCH TRANSDERM (17:53)
[2023-06-03 20:23] VITALS: BP 148/66; PULSE 72; RESP 20; TEMP 37; O2SAT 99
[2023-06-03 23:40] VITALS: O2SAT 99
[2023-06-04] VITALS (10 sets, daily range): BP systolic 139–185; BP diastolic 58–90; PULSE 63–82; RESP 16–18; TEMP 36.6–36.8; O2SAT 94–100
[2023-06-04] MEDS: SODIUM CHLORIDE 0.9% IV 1,000 ML 75 ML IV CONT ×2 (02:49→12:06)
[2023-06-04] MEDS: LEVOTHYROXINE SODIUM 50 MCG TABLET PO (05:49)
[2023-06-04 06:08] LABS: Hematocrit 33.4 % (37.0-47.0); Hemoglobin 11.2 g/dL (12.0-15.0); Immature Platelet Fraction Pct 4.9 % (0.9-11.2); Mean Corpuscular HGB Conc 33.5 g/dl (32-36); Mean Corpuscular Volume 92.5 fl (80-100); Mean Platelet Volume 11.1 fl (7.4-10.4); Platelet Count Result 92 k/mm3 (150-375); Red Blood Count 3.61 M/mm3 (4.2-5.4); Red Cell Distribution Width 11.3 % (11.5-14.5); White Blood Count 5.4 K/mm3 (4.5-10.0)
[2023-06-04 06:14] LABS: INR 1.3
[2023-06-04 06:25] LABS: Alanine Aminotransferase 16 U/L (6-35); Anion Gap 2 mmol/L (8-16); Blood Urea Nitrogen 9 mg/dL (7-17); Calcium 7.4 mg/dL (8.4-10.2); Carbon Dioxide 26 mmol/L (22-30); Chloride 104 mmol/L (98-107); Estimated CRCL calculation 69 ml/min; Estimated Glomerular Filt Rate > 60; Glucose 88 mg/dL (65-110); Potassium 2.8 mmol/L (3.4-5.0); Sodium 132 mmol/L (137-145)
[2023-06-04] MEDS: POTASSIUM CHLORIDE INJ 40 MEQ in SODIUM CHLORIDE 0.9% IV 500 ML 130 MEQ IVPB (06:55)
[2023-06-04] MEDS: ONDANSETRON INJ 4 MG/2 ML VIAL IV PUSH ×2 (08:07→20:27)
[2023-06-04] MEDS: LIDOCAINE 5% PATCH 1 PATCH TRANSDERM (08:07)
[2023-06-04] MEDS: ENOXAPARIN 40 MG/0.4 ML SYRINGE SUB-Q (08:07)
[2023-06-04] MEDS: ASCORBIC ACID 500 MG TABLET PO (08:07)
[2023-06-04] MEDS: ZINC SULFATE 220 MG CAPSULE PO (08:08)
[2023-06-04] MEDS: IPRATROPIUM NASAL SPRAY 0.06% 15 ML BOTTLE 2 SPRAY NASAL ×3 (08:08→16:00)
[2023-06-04] MEDS: estradioL 0.5 MG TABLET PO (08:08)
[2023-06-04] MEDS: POTASSIUM CHLORIDE 20 MEQ ER TABLET 40 MEQ PO (08:08)
[2023-06-04] MEDS: LOSARTAN POTASSIUM 100 MG TABLET PO (08:08)
[2023-06-04] MEDS: POTASSIUM CHLORIDE 20 MEQ PACKET (FOR LIQUID) 40 MEQ PO (08:22)
[2023-06-04] MEDS: REMDESIVIR 100 MG/NS 250 ML 100 MG/250 ML BAG 250 MG IVPB (09:13)
[2023-06-04 10:14] LABS: Band Neutrophils Percent 11 % (0-6); Lymphocytes Absolute Manual 1.45 K/mm3 (1.1-4.5); Monocytes Absolute Manual 0.21 K/mm3 (0.1-0.90); Monocytes Percent Manual 4 % (3-9); Neutrophils Absolute Manual 3.72 K/mm3 (1.7-7.2); Neutrophils Percent Manual 58 % (46-73); Platelet Estimate Decreased (Adequate); Total Cells Counted 100
[2023-06-04 10:15] LABS: Anisocytosis 1+ (NORMAL); Schistocytes None Seen (NORMAL)
--- NOTE | 2023-06-04 11:04 | PM.IMPN ---
Progress Note: A&P Assessment and Plan (1) COVID: Code(s): U07.1 - COVID-19 Status: Acute Assessment and Plan: Feeling better. More energy today. Oxygen saturations are fine. Continue supportive care (2) Weakness: Code(s): R53.1 - Weakness Status: Acute (3) Unstable gait: Code(s): R26.81 - Unsteadiness on feet Status: Acute (4) Sensorineural hearing loss of combined sites, bilateral: Code(s): H90.3 - Sensorineural hearing loss, bilateral Status: Acute (5) Essential (primary) hypertension: Code(s): I10 - Essential (primary) hypertension Status: Acute (6) Hypothyroidism: Code(s): E03.9 - Hypothyroidism, unspecified Status: Acute (7) Chronic left shoulder pain: Code(s): M25.512 - Pain in left shoulder; G89.29 - Other chronic pain Status: Acute (8) Chronic low back pain: Code(s): M54.5 - Low back pain; G89.29 - Other chronic pain Status: Acute (9) Rotator cuff tendonitis: Qualifiers: Laterality: left Qualified Code(s): M75.82 - Other shoulder lesions, left shoulder Code(s): M75.80 - Other shoulder lesions, unspecified shoulder Status: Acute (10) Left shoulder pain: Qualifiers: Chronicity: chronic Qualified Code(s): M25.512 - Pain in left shoulder; G89.29 - Other chronic pain Code(s): M25.512 - Pain in left shoulder Status: Acute (11) Nausea vomiting and diarrhea: Code(s): R11.2 - Nausea with vomiting, unspecified; R19.7 - Diarrhea, unspecified Status: Acute Subjective Date/time seen: 06/04/23 11:04 Interval history: No new complaints Exam Narrative: PHYSICAL EXAMINATION: Vital signs: Please see the chart General physical exam: patient feels very weak and tired, lying in bed in the ER home, finds difficult to walk Head/eyes: Atraumatic, EOMI, PERRLA ENT: +dry mucous membranes, nasal passages clear Neck: Supple, full range of motion, trachea midline CVS: S1 + S2, regular rate and rhythm, no murmurs Respiratory: Bilaterally decreased air entry in both lung neville, mild B/L crackles, symmetric chest expansion, no distress Abdomen: Soft, non-tender, bowel sounds +ve, no organomegaly Extremities: No clubbing, no cyanosis, no edema, no calf tenderness Musculoskeletal: Moves all, decreased range of motion, no muscle spasms Skin: Warm, dry, no jaundice, no cyanosis Neurological: Awake, alert, oriented x 3, cranial nerves II-XII intact, no focal neurological deficits Psychiatric: Normal mood, non suicidal Objective Data Vital Signs Vital Signs: Vital Signs - 24 hr 06/03/23 16:00 06/03/23 20:23 06/04/23 00:45 Temperature 99.6 F 98.6 F 98.0 F Pulse Rate 85 72 77 Respiratory Rate 16 20 18 Blood Pressure 155/64 H 148/66 H 139/70 Pulse Oximetry 98 99 96 Oxygen Delivery 06/04/23 05:55 06/03/23 23:40 06/04/23 08:00 Temperature 97.9 F Pulse Rate 63 Respiratory Rate 16 Blood Pressure 152/58 H Pulse Oximetry 98 99 Oxygen Delivery Room Air Room Air Intake/Output Intake/Output: Intake & Output 06/01/23 06/02/23 06/03/23 06/04/23 23:59 23:59 23:59 23:59 Intake Total 3510 1770 1250 Output Total 1800 500 Balance 3510 -30 750 Meds/Results Medications: Active Medications Generic Name Dose Route Start Last Admin Trade Name Freq PRN Reason Stop Dose Admin Acetaminophen 650 mg 06/02/23 06:34 06/02/23 14:53 Acetaminophen 325 Mg Tablet PO 650 mg Q4H PRN Administration Mild Pain (1-3) or Fever Hydrocodone Bitart/Acetaminophen 1 tab 06/02/23 11:10 Hydrocodone/Acetaminophen (*Crx) 5-325 Mg Tablet PO QHS PRN Pain Al Hydrox/Mg Hydrox/Simethicone 30 ml 06/02/23 06:34 06/03/23 04:20 Mag Hydrox/Al Hydrox/Simeth 30 Ml Udc PO 30 ml QID PRN Administration Dyspepsia Ascorbic Acid 500 mg 06/02/23 09:00 06/04/23 08:07 Ascorbic Acid 500 Mg Tablet PO 500 mg
[2023-06-04] MEDS: METOPROLOL TARTRATE INJ 5 MG/5 ML VIAL IV PUSH (20:27)
[2023-06-05] VITALS (8 sets, daily range): BP systolic 143–184; BP diastolic 60–81; PULSE 68–84; RESP 12–16; TEMP 36.4–37.1; O2SAT 95–100
[2023-06-05 04:46] LABS: Basophils Percent Auto 0.2 % (0.2-1.2); Eosinophils Percent Auto 0.7 % (0-4.4); Hematocrit 34.8 % (37.0-47.0); Hemoglobin 11.7 g/dL (12.0-15.0); Immature Granulocyte Absolute 0.01 K/mm3 (0.00-0.031); Immature Granulocyte Percent A 0.2 % (0-0.5); Immature Platelet Fraction Pct 4.9 % (0.9-11.2); Lymphocytes Absolute Auto 0.88 K/mm3 (0.9-3.2); Lymphocytes Percent Auto 20.8 % (18.3-44.2); Mean Corpuscular HGB Conc 33.6 g/dl (32-36); Mean Corpuscular Volume 92.1 fl (80-100); Mean Platelet Volume 10.5 fl (7.4-10.4); Monocytes Absolute Auto 0.5 K/mm3 (0.1-0.6); Monocytes Percent Auto 12.7 % (2.6-8.5); Neutrophils Absolute Auto 2.8 K/mm3 (1.3-6.7); Neutrophils Percent Auto 65.4 % (45.5-73.1); Platelet Count Result 97 k/mm3 (150-375); Red Blood Count 3.78 M/mm3 (4.2-5.4); Red Cell Distribution Width 11.4 % (11.5-14.5); White Blood Count 4.2 K/mm3 (4.5-10.0)
[2023-06-05 05:00] LABS: Alanine Aminotransferase 19 U/L (6-35); Anion Gap 8 mmol/L (8-16); Blood Urea Nitrogen 7 mg/dL (7-17); Calcium 7.8 mg/dL (8.4-10.2); Carbon Dioxide 21 mmol/L (22-30); Chloride 106 mmol/L (98-107); Estimated CRCL calculation 69 ml/min; Estimated Glomerular Filt Rate > 60; Glucose 72 mg/dL (65-110); Potassium 3.1 mmol/L (3.4-5.0); Sodium 135 mmol/L (137-145)
[2023-06-05 05:05] LABS: INR 1.3; Prothrombin Time 17.4 Seconds (11.1-14.7)
[2023-06-05] MEDS: SODIUM CHLORIDE 0.9% IV 1,000 ML 75 ML IV CONT ×3 (06:00→20:15)
[2023-06-05] MEDS: LEVOTHYROXINE SODIUM 50 MCG TABLET PO (06:00)
[2023-06-05] MEDS: ASCORBIC ACID 500 MG TABLET PO (08:11)
[2023-06-05] MEDS: POTASSIUM CHLORIDE 20 MEQ ER TABLET 40 MEQ PO (08:11)
[2023-06-05] MEDS: LIDOCAINE 5% PATCH 1 PATCH TRANSDERM (08:11)
[2023-06-05] MEDS: IPRATROPIUM NASAL SPRAY 0.06% 15 ML BOTTLE 2 SPRAY NASAL (08:11)
[2023-06-05] MEDS: ZINC SULFATE 220 MG CAPSULE PO (08:11)
[2023-06-05] MEDS: estradioL 0.5 MG TABLET PO (08:11)
[2023-06-05] MEDS: ONDANSETRON INJ 4 MG/2 ML VIAL IV PUSH (08:11)
[2023-06-05] MEDS: LOSARTAN POTASSIUM 100 MG TABLET PO (08:11)
[2023-06-05] MEDS: POTASSIUM CHLORIDE 20 MEQ PACKET (FOR LIQUID) 40 MEQ PO (08:21)
[2023-06-05] MEDS: REMDESIVIR 100 MG/NS 250 ML 100 MG/250 ML BAG 250 MG IVPB (09:27)
[2023-06-05] MEDS: LOPERAMIDE HCL 2 MG CAPSULE PO ×2 (09:27→12:10)
--- NOTE | 2023-06-05 09:32 | PC.NURSE ---
This nurse encouraged pt to take medications this am. nurse came back around with new medication of Imodium to help with loose bms today. pt stated what now! . This nurse stated what the medication is over and what it is, pt then rolled her eyes and said, ill take it . as nurse was exiting room pt stated, yuko hoyos pill pushers
--- NOTE | 2023-06-05 11:12 | PM.IMPN ---
Progress Note: A&P Assessment and Plan (1) COVID: Code(s): U07.1 - COVID-19 Status: Acute Assessment and Plan: Feeling better. More energy today. Oxygen saturations are fine. Continue supportive care (2) Weakness: Code(s): R53.1 - Weakness Status: Acute (3) Unstable gait: Code(s): R26.81 - Unsteadiness on feet Status: Acute (4) Sensorineural hearing loss of combined sites, bilateral: Code(s): H90.3 - Sensorineural hearing loss, bilateral Status: Acute (5) Essential (primary) hypertension: Code(s): I10 - Essential (primary) hypertension Status: Acute (6) Hypothyroidism: Code(s): E03.9 - Hypothyroidism, unspecified Status: Acute (7) Chronic left shoulder pain: Code(s): M25.512 - Pain in left shoulder; G89.29 - Other chronic pain Status: Acute (8) Chronic low back pain: Code(s): M54.5 - Low back pain; G89.29 - Other chronic pain Status: Acute (9) Rotator cuff tendonitis: Qualifiers: Laterality: left Qualified Code(s): M75.82 - Other shoulder lesions, left shoulder Code(s): M75.80 - Other shoulder lesions, unspecified shoulder Status: Acute (10) Left shoulder pain: Qualifiers: Chronicity: chronic Qualified Code(s): M25.512 - Pain in left shoulder; G89.29 - Other chronic pain Code(s): M25.512 - Pain in left shoulder Status: Acute (11) Nausea vomiting and diarrhea: Code(s): R11.2 - Nausea with vomiting, unspecified; R19.7 - Diarrhea, unspecified Status: Acute Subjective Date/time seen: 06/05/23 11:12 Interval history: doing better eating some Exam Narrative: PHYSICAL EXAMINATION: Vital signs: Please see the chart General physical exam: patient feels very weak and tired, lying in bed in the ER home, finds difficult to walk Head/eyes: Atraumatic, EOMI, PERRLA ENT: +dry mucous membranes, nasal passages clear Neck: Supple, full range of motion, trachea midline CVS: S1 + S2, regular rate and rhythm, no murmurs Respiratory: Bilaterally decreased air entry in both lung neville, mild B/L crackles, symmetric chest expansion, no distress Abdomen: Soft, non-tender, bowel sounds +ve, no organomegaly Extremities: No clubbing, no cyanosis, no edema, no calf tenderness Musculoskeletal: Moves all, decreased range of motion, no muscle spasms Skin: Warm, dry, no jaundice, no cyanosis Neurological: Awake, alert, oriented x 3, cranial nerves II-XII intact, no focal neurological deficits Psychiatric: Normal mood, non suicidal Objective Data Vital Signs Vital Signs: Vital Signs - 24 hr 06/04/23 14:00 06/04/23 18:00 06/04/23 20:04 Temperature 97.9 F 98.2 F 97.9 F Pulse Rate 70 82 75 Respiratory Rate 18 18 18 Blood Pressure 185/65 H 162/70 H 182/90 H Pulse Oximetry 100 98 100 Oxygen Delivery 06/04/23 20:27 06/04/23 21:44 06/04/23 23:45 Temperature 98.0 F Pulse Rate 74 75 82 Respiratory Rate 16 Blood Pressure 158/70 H 165/73 H Pulse Oximetry 94 Oxygen Delivery 06/05/23 03:38 06/04/23 23:25 06/05/23 08:30 Temperature 97.6 F Pulse Rate 68 Respiratory Rate 16 Blood Pressure 161/60 H Pulse Oximetry 98 95 Oxygen Delivery Room Air Room Air 06/05/23 10:10 Temperature 98.1 F Pulse Rate 80 Respiratory Rate 12 Blood Pressure 182/70 H Pulse Oximetry 99 Oxygen Delivery Intake/Output Intake/Output: Intake & Output 06/02/23 06/03/23 06/04/23 06/05/23 23:59 23:59 23:59 23:59 Intake Total 3510 1770 2550 1550 Output Total 1800 1000 Balance 3510 -30 1550 1550 Meds/Results Medications: Active Medications Generic Name Dose Route Start Last Admin Trade Name Freq PRN Reason Stop Dose Admin Acetaminophen 650 mg 06/02/23 06:34 06/02/23 14:53 Acetaminophen 325 Mg Tablet PO 650 mg Q4H PRN Administration Mild Pain (1-3) or Fever Hydrocodone Bitart/Acetaminophen 1 tab 06/02/23 1
[2023-06-05] MEDS: METOPROLOL TARTRATE INJ 5 MG/5 ML VIAL IV PUSH (20:15)
[2023-06-06 06:00] VITALS: BP 175/73; PULSE 72; RESP 16; TEMP 36.8; O2SAT 98
[2023-06-06] MEDS: LEVOTHYROXINE SODIUM 50 MCG TABLET PO (06:18)
[2023-06-06 07:29] LABS: Eosinophils Absolute Auto 0.1 K/mm3 (0-0.3); Eosinophils Percent Auto 1.9 % (0-4.4); Hematocrit 37.3 % (37.0-47.0); Hemoglobin 12.4 g/dL (12.0-15.0); Immature Granulocyte Absolute 0.02 K/mm3 (0.00-0.031); Immature Granulocyte Percent A 0.4 % (0-0.5); Immature Platelet Fraction Pct 4.9 % (0.9-11.2); Lymphocytes Absolute Auto 1.05 K/mm3 (0.9-3.2); Lymphocytes Percent Auto 21.8 % (18.3-44.2); Mean Corpuscular HGB Conc 33.2 g/dl (32-36); Mean Corpuscular Hemoglobin 30.6 pg (26-34); Mean Corpuscular Volume 92.1 fl (80-100); Mean Platelet Volume 10.5 fl (7.4-10.4); Monocytes Absolute Auto 0.7 K/mm3 (0.1-0.6); Monocytes Percent Auto 15.1 % (2.6-8.5); Neutrophils Absolute Auto 2.9 K/mm3 (1.3-6.7); Neutrophils Percent Auto 60.8 % (45.5-73.1); Platelet Count Result 132 k/mm3 (150-375); Red Blood Count 4.05 M/mm3 (4.2-5.4); Red Cell Distribution Width 11.5 % (11.5-14.5); White Blood Count 4.8 K/mm3 (4.5-10.0)
[2023-06-06 07:48] LABS: Anion Gap 9 mmol/L (8-16); Blood Urea Nitrogen 5 mg/dL (7-17); Calcium 7.9 mg/dL (8.4-10.2); Carbon Dioxide 21 mmol/L (22-30); Chloride 104 mmol/L (98-107); Estimated CRCL calculation 69 ml/min; Estimated Glomerular Filt Rate > 60; Glucose 91 mg/dL (65-110); Potassium 3.2 mmol/L (3.4-5.0); Sodium 134 mmol/L (137-145)
[2023-06-06] MEDS: POTASSIUM CHLORIDE 20 MEQ ER TABLET 40 MEQ PO ×2 (08:41→08:42)
[2023-06-06] MEDS: LOSARTAN POTASSIUM 100 MG TABLET PO (08:42)
[2023-06-06] MEDS: ZINC SULFATE 220 MG CAPSULE PO (08:42)
[2023-06-06] MEDS: LIDOCAINE 5% PATCH 1 PATCH TRANSDERM (08:42)
[2023-06-06] MEDS: estradioL 0.5 MG TABLET PO (08:42)
[2023-06-06] MEDS: IPRATROPIUM NASAL SPRAY 0.06% 15 ML BOTTLE 2 SPRAY NASAL ×2 (08:42→17:07)
[2023-06-06] MEDS: ASCORBIC ACID 500 MG TABLET PO (08:43)
[2023-06-06 09:49] LABS: INR 1.2; Prothrombin Time 15.5 Seconds (11.1-14.7)
[2023-06-06] MEDS: REMDESIVIR 100 MG/NS 250 ML 100 MG/250 ML BAG 250 MG IVPB (10:03)
[2023-06-06 10:09] LABS: Alanine Aminotransferase 19 U/L (6-35)
[2023-06-06 10:20] VITALS: BP 192/71; PULSE 71; RESP 12; TEMP 36.8; O2SAT 97
[2023-06-06] MEDS: amLODIPine BESYLATE 5 MG TABLET PO (11:07)
--- NOTE | 2023-06-06 11:30 | PM.IMPN ---
Progress Note: A&P Assessment and Plan (1) COVID: Code(s): U07.1 - COVID-19 Status: Acute Assessment and Plan: Feeling better. More energy today. Oxygen saturations are fine. Continue supportive care (2) Weakness: Code(s): R53.1 - Weakness Status: Acute (3) Unstable gait: Code(s): R26.81 - Unsteadiness on feet Status: Acute (4) Sensorineural hearing loss of combined sites, bilateral: Code(s): H90.3 - Sensorineural hearing loss, bilateral Status: Acute (5) Essential (primary) hypertension: Code(s): I10 - Essential (primary) hypertension Status: Acute (6) Hypothyroidism: Code(s): E03.9 - Hypothyroidism, unspecified Status: Acute (7) Chronic left shoulder pain: Code(s): M25.512 - Pain in left shoulder; G89.29 - Other chronic pain Status: Acute (8) Chronic low back pain: Code(s): M54.5 - Low back pain; G89.29 - Other chronic pain Status: Acute (9) Rotator cuff tendonitis: Qualifiers: Laterality: left Qualified Code(s): M75.82 - Other shoulder lesions, left shoulder Code(s): M75.80 - Other shoulder lesions, unspecified shoulder Status: Acute (10) Left shoulder pain: Qualifiers: Chronicity: chronic Qualified Code(s): M25.512 - Pain in left shoulder; G89.29 - Other chronic pain Code(s): M25.512 - Pain in left shoulder Status: Acute (11) Nausea vomiting and diarrhea: Code(s): R11.2 - Nausea with vomiting, unspecified; R19.7 - Diarrhea, unspecified Status: Acute Subjective Date/time seen: 06/06/23 11:30 Interval history: feeling better Exam Narrative: PHYSICAL EXAMINATION: Vital signs: Please see the chart General physical exam: patient feels very weak and tired, lying in bed in the ER home, finds difficult to walk Head/eyes: Atraumatic, EOMI, PERRLA ENT: +dry mucous membranes, nasal passages clear Neck: Supple, full range of motion, trachea midline CVS: S1 + S2, regular rate and rhythm, no murmurs Respiratory: Bilaterally decreased air entry in both lung neville, mild B/L crackles, symmetric chest expansion, no distress Abdomen: Soft, non-tender, bowel sounds +ve, no organomegaly Extremities: No clubbing, no cyanosis, no edema, no calf tenderness Musculoskeletal: Moves all, decreased range of motion, no muscle spasms Skin: Warm, dry, no jaundice, no cyanosis Neurological: Awake, alert, oriented x 3, cranial nerves II-XII intact, no focal neurological deficits Psychiatric: Normal mood, non suicidal Objective Data Vital Signs Vital Signs: Vital Signs - 24 hr 06/05/23 13:50 06/05/23 16:05 06/05/23 18:20 Temperature 98.7 F 98.4 F Pulse Rate 79 77 Respiratory Rate 12 16 Blood Pressure 159/68 H 179/75 H Pulse Oximetry 100 99 Oxygen Delivery Room Air 06/05/23 19:38 06/05/23 21:29 06/05/23 20:00 Temperature 97.7 F Pulse Rate 84 69 69 Respiratory Rate 16 16 Blood Pressure 184/81 H 153/81 H Pulse Oximetry 96 99 99 Oxygen Delivery Room Air 06/06/23 06:00 06/06/23 09:00 06/06/23 10:20 Temperature 98.3 F 98.3 F Pulse Rate 72 71 Respiratory Rate 16 12 Blood Pressure 175/73 H 192/71 H Pulse Oximetry 98 97 Oxygen Delivery Room Air Intake/Output Intake/Output: Intake & Output 06/03/23 06/04/23 06/05/23 06/06/23 23:59 23:59 23:59 23:59 Intake Total 1770 2550 4240 500 Output Total 1800 1000 Balance -30 1550 4240 500 Meds/Results Medications: Active Medications Generic Name Dose Route Start Last Admin Trade Name Freq PRN Reason Stop Dose Admin Acetaminophen 650 mg 06/02/23 06:34 06/02/23 14:53 Acetaminophen 325 Mg Tablet PO 650 mg Q4H PRN Administration Mild Pain (1-3) or Fever Hydrocodone Bitart/Acetaminophen 1 tab 06/02/23 11:10 Hydrocodone/Acetaminophen (*Crx) 5-325 Mg Tablet PO QHS PRN Pain Al Hydrox/Mg Hydrox/Simethicone 30 ml 06/02/23 06:
[2023-06-06 14:15] VITALS: BP 175/86; PULSE 86; RESP 16; TEMP 36.6; O2SAT 100
[2023-06-06] MEDS: POTASSIUM CHLORIDE 20 MEQ ER TABLET PO (17:07)
[2023-06-06 18:00] VITALS: BP 155/76; PULSE 77; RESP 16; TEMP 37.1; O2SAT 98
[2023-06-06 20:00] VITALS: PULSE 77; RESP 16; O2SAT 98
[2023-06-06 22:00] VITALS: BP 150/64; PULSE 75; RESP 18; TEMP 36.9; O2SAT 97
[2023-06-07 02:45] VITALS: BP 156/70; PULSE 58; RESP 21; TEMP 36.4; O2SAT 100
[2023-06-07 05:46] LABS: Basophils Percent Auto 0.4 % (0.2-1.2); Eosinophils Absolute Auto 0.2 K/mm3 (0-0.3); Eosinophils Percent Auto 4.3 % (0-4.4); Hematocrit 35.9 % (37.0-47.0); Hemoglobin 11.9 g/dL (12.0-15.0); Immature Granulocyte Absolute 0.02 K/mm3 (0.00-0.031); Immature Granulocyte Percent A 0.4 % (0-0.5); Lymphocytes Absolute Auto 1.22 K/mm3 (0.9-3.2); Lymphocytes Percent Auto 26.2 % (18.3-44.2); Mean Corpuscular HGB Conc 33.1 g/dl (32-36); Mean Corpuscular Hemoglobin 30.6 pg (26-34); Mean Corpuscular Volume 92.3 fl (80-100); Mean Platelet Volume 10.4 fl (7.4-10.4); Monocytes Absolute Auto 0.9 K/mm3 (0.1-0.6); Monocytes Percent Auto 19.1 % (2.6-8.5); Neutrophils Absolute Auto 2.3 K/mm3 (1.3-6.7); Neutrophils Percent Auto 49.6 % (45.5-73.1); Platelet Count Result 143 k/mm3 (150-375); Red Blood Count 3.89 M/mm3 (4.2-5.4); Red Cell Distribution Width 11.6 % (11.5-14.5); White Blood Count 4.7 K/mm3 (4.5-10.0)
[2023-06-07 05:56] LABS: Anion Gap 3 mmol/L (8-16); Blood Urea Nitrogen 8 mg/dL (7-17); Calcium 7.9 mg/dL (8.4-10.2); Carbon Dioxide 23 mmol/L (22-30); Chloride 105 mmol/L (98-107); Estimated CRCL calculation 69 ml/min; Estimated Glomerular Filt Rate > 60; Glucose 88 mg/dL (65-110); Potassium 4.2 mmol/L (3.4-5.0); Sodium 131 mmol/L (137-145)
[2023-06-07] MEDS: LEVOTHYROXINE SODIUM 50 MCG TABLET PO (06:03)
[2023-06-07 06:33] VITALS: BP 160/76; PULSE 79; RESP 20; TEMP 36.2; O2SAT 98
[2023-06-07] MEDS: POTASSIUM CHLORIDE 20 MEQ ER TABLET 40 MEQ PO (10:05)
[2023-06-07] MEDS: ASCORBIC ACID 500 MG TABLET PO (10:05)
[2023-06-07] MEDS: LOSARTAN POTASSIUM 100 MG TABLET PO (10:05)
[2023-06-07] MEDS: LIDOCAINE 5% PATCH 1 PATCH TRANSDERM (10:06)
[2023-06-07] MEDS: ZINC SULFATE 220 MG CAPSULE PO (10:06)
[2023-06-07] MEDS: ENOXAPARIN 40 MG/0.4 ML SYRINGE SUB-Q (10:06)
[2023-06-07] MEDS: estradioL 0.5 MG TABLET PO (10:06)
[2023-06-07] MEDS: amLODIPine BESYLATE 5 MG TABLET PO (10:06)
[2023-06-07] MEDS: IPRATROPIUM NASAL SPRAY 0.06% 15 ML BOTTLE 2 SPRAY NASAL ×2 (10:07→12:19)
[2023-06-07 10:08] VITALS: BP 150/60; PULSE 82; RESP 14; O2SAT 99
--- NOTE | 2023-06-07 11:30 | PM.DS ---
DS: Admitting Diagnosis Discharge Date November 07, 2022 Admitting Diagnosis COVID DS: Discharge Diagnosis Discharge Diagnosis (1) COVID: Code(s): U07.1 - COVID-19 Status: Acute Assessment and Plan: Feeling better. More energy today. Oxygen saturations are fine. Continue supportive care (2) Weakness: Code(s): R53.1 - Weakness Status: Acute (3) Unstable gait: Code(s): R26.81 - Unsteadiness on feet Status: Acute (4) Sensorineural hearing loss of combined sites, bilateral: Code(s): H90.3 - Sensorineural hearing loss, bilateral Status: Acute (5) Essential (primary) hypertension: Code(s): I10 - Essential (primary) hypertension Status: Acute (6) Hypothyroidism: Code(s): E03.9 - Hypothyroidism, unspecified Status: Acute (7) Chronic left shoulder pain: Code(s): M25.512 - Pain in left shoulder; G89.29 - Other chronic pain Status: Acute (8) Chronic low back pain: Code(s): M54.5 - Low back pain; G89.29 - Other chronic pain Status: Acute (9) Rotator cuff tendonitis: Qualifiers: Laterality: left Qualified Code(s): M75.82 - Other shoulder lesions, left shoulder Code(s): M75.80 - Other shoulder lesions, unspecified shoulder Status: Acute (10) Left shoulder pain: Qualifiers: Chronicity: chronic Qualified Code(s): M25.512 - Pain in left shoulder; G89.29 - Other chronic pain Code(s): M25.512 - Pain in left shoulder Status: Acute (11) Nausea vomiting and diarrhea: Code(s): R11.2 - Nausea with vomiting, unspecified; R19.7 - Diarrhea, unspecified Status: Acute DS: Summary Hospital Course Hospital Course: Patient was admitted for failure to thrive secondary to COVID. No respiratory complications to not require any oxygen. Patient started does severe did well. Overall she is eating drinking tolerating some activity. She is still weak. Otherwise she can be discharged home to recover. Time Spent with Patient Time attestation: Total time spent providing and/or coordinating discharge services: Exam Narrative: PHYSICAL EXAMINATION: Vital signs: Please see the chart General physical exam: patient feels very weak and tired, lying in bed in the ER home, finds difficult to walk Head/eyes: Atraumatic, EOMI, PERRLA ENT: +dry mucous membranes, nasal passages clear Neck: Supple, full range of motion, trachea midline CVS: S1 + S2, regular rate and rhythm, no murmurs Respiratory: Bilaterally decreased air entry in both lung neville, mild B/L crackles, symmetric chest expansion, no distress Abdomen: Soft, non-tender, bowel sounds +ve, no organomegaly Extremities: No clubbing, no cyanosis, no edema, no calf tenderness Musculoskeletal: Moves all, decreased range of motion, no muscle spasms Skin: Warm, dry, no jaundice, no cyanosis Neurological: Awake, alert, oriented x 3, cranial nerves II-XII intact, no focal neurological deficits Psychiatric: Normal mood, non suicidal DS: Data Data Completed and Pending Labs on day of discharge: Labs from last 24 hours 06/07/23 05:19 WBC 4.7 RBC 3.89 L Hgb 11.9 L Hct 35.9 L MCV 92.3 MCH 30.6 MCHC 33.1 RDW 11.6 Plt Count 143 L MPV 10.4 Immature Gran % (Auto) 0.4 Neut % (Auto) 49.6 Lymph % (Auto) 26.2 [place] % (Auto) 19.1 H Eos % (Auto) 4.3 Baso % (Auto) 0.4 Lymph # (Auto) 1.22 [place] # (Auto) 0.9 H Eos # (Auto) 0.2 Baso # (Auto) 0.0 Abs Immat Gran (auto) 0.02 Absolute Neuts (auto) 2.3 Absolute Nucleated RBC 0.0 Nucleated RBC % 0.0 Sodium 131 L Potassium 4.2 Chloride 105 Carbon Dioxide 23 Anion Gap 3 L BUN 8 Creatinine 0.50 L Estim Creat Clear Calc 69 Estimated GFR > 60 Glucose 88 Calcium 7.9 L Discharge Plan Discharge Attending physician on discharge: Carrington Jefferson Discharging Clinician: Carrington Jefferson Patient Disposition: Home, Self-Car
== END 2023-06-07 13:00 | disposition home or self-care (01) | DRG 179 ==
LOC: ANHED 05:55 → ANH2MED 06:28
PROVIDERS: Admitting Provider Family Medicine; Emergency Provider Emergency Medicine; PCP Family Medicine; Visit Provider Chiropractor
DX: U07.1 COVID-19 (principal); I10 Essential (primary) hypertension; E03.9 Hypothyroidism, unspecified; M54.50 Low back pain, unspecified; H90.3 Sensorineural hearing loss, bilateral; M75.82 Other shoulder lesions, left shoulder; G89.29 Other chronic pain; R62.7 Adult failure to thrive
CPT/HCPCS: 36415; 71046; 74018; 74177; 80048; 80053; 81001; 83735; 84100; 84460; 84484; 85025; 85055; 85610; 87637; 96361; 96374; 96375; 97161; 97165; 99285; A9270; J0248; J1650; J2270; J2405; J3480; J7030; J7040; Q9967

== ENCOUNTER → 2023-07-22 11:59 | Outpatient (CLI) | payer MEDICARE, SELFPAY ==
--- NOTE | ~2023-07-22 | MM_ITS ---
EXAMINATION: MM screening yung BI w delfino HISTORY: Screening TECHNIQUE: Craniocaudal and mediolateral oblique 3-D tomosynthesis images were obtained and synthetic 2-D images were generated. CAD analysis was submitted and interpreted. COMPARISON: Comparison to multiple prior studies sequentially, with oldest reviewed study dated 10/13. BREAST PARENCHYMAL COMPOSITION: The breasts are extremely dense, which lowers the sensitivity of mamm ography FINDINGS: There is a developing cluster of punctate calcifications in the upper outer quadrant of the right breast. The left breast is stable without evidence for malignancy. IMPRESSION: 1. Developing cluster of punctate calcifications upper outer quadrant of the right breast. 2. Magnification views are recommended. BI-RADS Category 0: Incomplete: Needs additional imaging evaluation. Reviewed, dictated and finalized at location [facility]. [employer] IMPRESSION: 1. Developing cluster of punctate calcifications upper outer quadrant of the ri ght breast. 2. Magnification views are recommended. BI-RADS Category 0: Incomplete: Needs additional imaging evaluation.
== END ==
PROVIDERS: Visit Provider Obstetrics & Gynecology Gynecology
DX: Z12.31 Encounter for screening mammogram for malignant neoplasm of breast (principal); R92.8 Other abnormal and inconclusive findings on diagnostic imaging of breast
CPT/HCPCS: 77063; 77067

== ENCOUNTER 2025-03-05 08:28 | Outpatient (CLI) | payer MEDICARE, SELFPAY ==
--- NOTE | 2025-03-05 08:39 | EST_ITS ---
Patient Info Name: Snady Arreola Age: 79 years : 1945 Gender: Female Ht: 64 in Wt: 109 lbs BSA: 1.49 m2 HR: 67 bpm BP: 158 / 72 mmHg Exam Date: 03/05/2025 8:39 AM Patient Status: O Admit Date: 03/05/2025 Exam Type: CA stress test treadmill A treadmill exercise stress test was performed. Staff Attending Provider: Anupama Zhang Exercise Technologist: Brittany Soriano Exercise Physician: Chito Wilks DO Summary 1. 1. Negative Kvng exercise stress test for ischemic ST changes by ECG criteria. 2. 2. Reduced functional capacity, achieving 4.7 METs of workload. 3. 3. Baseline hypertension. 4. 4. Appropriate HR response to exercise. 5. 5. Appropriate HR recovery at 1 minute post exercise. 6. 6. No imaging with stress testing. 7. 7. Patient informed of the above results. Protocol: Kvng Stress ECG Details Stage: REST Duration (min): 1 min : 47 sec Speed (mph): 0.0 Grade (%): 0 HR (bpm): 68 SBP (mmHg): 158 DBP (mmHg): 72 METS: --- Stage: REST Duration (min): 5 min : 41 sec Speed (mph): 0.0 Grade (%): 0 HR (bpm): 83 SBP (mmHg): 158 DBP (mmHg): 72 METS: --- Stage: STAGE 1 Duration (min): 1 min : 0 sec Speed (mph): 1.7 Grade (%): 10 HR (bpm): 98 SBP (mmHg): 158 DBP (mmHg): 72 METS: --- Stage: STAGE 1 Duration (min): 2 min : 0 sec Speed (mph): 1.7 Grade (%): 10 HR (bpm): 116 SBP (mmHg): 158 DBP (mmHg): 72 METS: --- Stage: STAGE 1 Duration (min): 3 min : 0 sec Speed (mph): 1.7 Grade (%): 10 HR (bpm): 130 SBP (mmHg): 160 DBP (mmHg): 76 METS: --- Stage: RECOVERY Duration (min): 0 min : 59 sec Speed (mph): 0.0 Grade (%): 0 HR (bpm): 122 SBP (mmHg): 160 DBP (mmHg): 76 METS: --- Stage: RECOVERY Duration (min): 1 min : 59 sec Speed (mph): 0.0 Grade (%): 0 HR (bpm): 99 SBP (mmHg): 160 DBP (mmHg): 76 METS: --- Stage: RECOVERY Duration (min): 2 min : 59 sec Speed (mph): 0.0 Grade (%): 0 HR (bpm): 95 SBP (mmHg): 160 DBP (mmHg): 78 METS: --- Stage: RECOVERY Duration (min): 3 min : 1 sec Speed (mph): 0.0 Grade (%): 0 HR (bpm): 94 SBP (mmHg): 160 DBP (mmHg): 78 METS: --- Rest HR: 83 bpm Peak HR: 131 bpm Rest Sys BP: 158 mmHg Peak Sys BP: 160 mmHg Max Pred HR: 142 bpm % Max Pred HR: 92 % Target HR: 121 bpm Max RPP: 20,960 bpm*mmHg Douglas Score: 1 Termination Reason: Reached target heart rate or workload Cardiac Symptoms: Shortness of breath Max ST Seg Deviation: 0.50 mm Total Time: 3 min : 0 sec Rest Parker BP: 72 mmHg Peak Parker BP: 78 mmHg Angina Score: None Total METS: 4.7 Resting ECG Sinus rhythm. Stress ECG No ST changes. Arrhythmias None. Report Signatures
== END 2025-03-05 08:29 | disposition home or self-care (01) ==
PROVIDERS: PCP Family Medicine; Visit Provider Nurse Practitioner
DX: R07.9 Chest pain, unspecified (principal); I10 Essential (primary) hypertension
CPT/HCPCS: 93017

== ENCOUNTER 2025-03-07 09:52 | Emergency (ER) | payer MEDICARE, SELFPAY ==
--- NOTE | 2025-03-07 09:57 | ED_ITS ---
HPI - Wound/Laceration General Chief Complaint: Wound/Laceration Stated Complaint: leg injury/cut Time Seen by Provider: 03/07/25 10:13 Source: patient and RN notes reviewed Mode of arrival: ambulatory Limitations: no limitations History of Present Illness HPI narrative: 79-year-old female presents with concern for a wound on her right lower leg. She reports a week ago she suffered a skin tear, she has been applying Neosporin and bandage. She reports however it is becoming more red, swollen, tender and stings. She denies general malaise, fever, aches, chills, sweats. She denies purulence drainage. Related Data Home Medications ?Medication ?Instructions ?Recorded ?Confirmed ?Last Taken ?Type ergocalciferol (vitamin D2) 50,000 50,000 unit PO WEEKLY 02/27/21 02/01/25 05/26/23 History unit tablet estradiol 0.5 mg tablet 0.5 mg PO DAILY 02/27/21 02/01/25 06/01/23 09:00 History hydrocodone 5 mg-acetaminophen 325 1 tablet PO QHS PRN Pain 09/24/22 02/01/25 Unknown History mg tablet cranberry fruit 400 mg capsule 4,200 mg PO DAILY 01/11/23 02/01/25 06/01/23 History solifenacin 5 mg tablet 5 mg PO DAILY 01/31/24 02/01/25 Unknown History Allergies Allergy/AdvReac Type Severity Reaction Status Date / Time amoxicillin Allergy Unknown Unknown Verified 02/01/25 10:59 naproxen Allergy Unknown unknown Verified 03/07/25 10:02 Penicillins Allergy Unknown unknown Verified 03/07/25 10:02 Sulfa (Sulfonamide Allergy Unknown unknown Verified 03/07/25 10:02 Antibiotics) sulfanilamide Allergy Unknown Unknown Verified 03/07/25 10:02 Review of Systems Review of Systems: CONSTITUTIONAL: Denies malaise, chills, sweats, or fever. SKIN: Reports skin tear to the right lower leg with surrounding redness, tenderness MUSCULOSKELETAL: Denies muscle skeletal pain NEUROLOGIC: Denies numbness, weakness All systems reviewed & are unremarkable except as noted in HPI and below PMFSH Past Medical History Medical History Hypothyroidism Acute gastroenteritis Essential (primary) hypertension Rhinorrhea Rotator cuff tendonitis Left shoulder pain Rotator cuff tear, left Surgical History Surgical History H/O: hysterectomy Family History Family History Sibling Family history of schizophrenia Family history of lung cancer Father Family history of alcoholism Family history of chronic obstructive pulmonary disease Patient's father is Cancer Mother Family history of diabetes mellitus in first degree relative Other Diabetes mellitus Family history of kidney disease Family history of mental disorder Hypertension Social History Social History Social History: The patient lives with her and has 1 child. 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 She is lifelong nonsmoker. Does not use any alcohol marijuana or illicit drugs. Her is a durable power senior project coordinator for healthcare. Code status full code Caffeine-coffee Smoking status: Never smoker Alcohol intake: never Substance use: current Substance use type: does not use Lack of Transportation: No Lack of Food: Never True Current Housing: I Have Housing Concerned About Future Housing: No Difficulty Paying Gas/Electric Bills: No Difficulty Paying for Meds: No Currently Unemployed: No Education: Bachelor's Degree Difficulty w/ Childcare or Family Care: No Gender identity (if verbalized by the patient): Female Spiritual care concerns: No Comments At time of signature, agree with nursing past medical, surgical, social and family history. There is no relevant family history pertinent to the presenting complaint Exam Narrative: GENERAL: Well-appearing, well-nourished, and in no acute distress. HEAD: Normocephalic, atraumatic. EYES: PERRLA, conjunctivae clear ENT: Mucous membranes moist. NECK: Supple. No lymphadenopathy CHEST: Clear to auscultation. No respiratory distress. HEART: Regular rate and rhythm. SKIN: Warm, dry. 1 cm superficial skin tear to the right anterior lower leg surrounded by approximately 5 cm of Erythema, induration, tenderness, warmth with sharp margins. No vesicles, bullae, necrosis, ecchymosis, crepitus noted. NEURO: Alert and oriented x3. PSYCH: Normal mood and affect Course Course Emergency Course: Patient is aware of diagnosis, understands and agrees to treatment plan. Anticipatory guidance given. Patient agrees to follow-up as directed and is aware of reasons to seek care at the emergency department. Portions of this record may have been created with voice recognition software Level of Care: Express Care Visit Vital Signs Vital signs: Reviewed. MDM - Wound/Laceration MDM Narrative Medical decision making narrative: I evaluated this in the [facility] care. History is obtained from patient who is an independent historian and physical exam was performed.? Available medical records were reviewed. ? Exam findings and relevant testing show no acute concerns or changes; patient is non-toxic appearing and is in no distress. Does not appear at this time to be erythema multiforme, bullous, SJS, TEN; no evidence at this time to suggest RMSF, NSTI, endocarditis or Lyme disease; patient looks well, nontoxic and is tolerating oral intake; no neurologic signs or symptoms; no headache, photophobia or neck pain; afebrile.? Patient does not have history of of penetrating trauma, laceration, blunt trauma, recent surgery, immunosuppression, malignancy, obesity, alcoholism, corticosteroid use.? Discussed the importance of follow-up, patient agrees; question, cellulitis versus necrotizing soft tissue infection versus abscess.?? Patient is appropriate for outpatient treatment and follow-up. plored and no foreign bodies were found. There was no evidence of tendon or nerve lacerations. The wound was closed with [ XXX suture type, number, and technique]. A sterile dressing was then applied and anticipatory guidance was provided. Tetanus prophylaxis [(was/was not)] given Differential Diagnosis Differential diagnosis: Likely laceration, abrasion and avulsion of skin Critical Care Time Critical Care Time Critical Care Time: No Discharge Plan Discharge Clinical Impression: Wound infection Patient Disposition: Home Condition: Stable Instructions: Antibiotic Form, Wound Infection (ED) Additional Instructions: Please follow up with your Primary Care Doctor within 48-72 hours - call for an appointment. Rest and elevate affected area; apply moist heat 3-4 times daily for 10-15 minutes. Take Motrin 600mg every 8 hours with food for pain. Please take Antibiotics as directed. You can wash the wound with gentle soap and water only, you can use antibiotic ointment twice daily and cover with a bandage as needed. If you experience any worsening redness, swelling, streaking (red lines), fever or chills please go to the ER Patient Language: Citizen Of [place] Prescriptions: New cephalexin 500 mg capsule 500 mg PO QID 10 Days Qty: 40 0RF No Action estradiol 0.5 mg tablet 0.5 mg PO DAILY Rx Instructions: off 5 days; repeat cycle ergocalciferol (vitamin D2) 50,000 unit tablet 50,000 unit PO WEEKLY Rx Instructions: PO Take twice monthly; cranberry fruit 400 mg capsule 4,200 mg PO DAILY Rx Instructions: administer with a meal hydrocodone-acetaminophen 5-325 mg tablet 1 tablet PO QHS PRN (Reason: Pain) solifenacin 5 mg tablet 5 mg PO DAILY ipratropium bromide 42 mcg (0.06 %) spray,non-aerosol 2 spray intranasal TID Qty: 15 3RF Rx Instructions: administer into each nostril losartan 100 mg tablet See Rx Instructions .ROUTE .COMPLEX Qty: 90 1RF Dose Instruction: TAKE 1 TABLET BY MOUTH EVERY MORNING Rx Instructions: TAKE 1 TABLET BY MOUTH EVERY MORNING levothyroxine [Synthroid] 50 mcg tablet 50 mcg PO DAILY Qty: 90 1RF Follow-up/Referrals: Shanthi Barry DO [Primary Care Provider] - Time of Disposition: 10:18
[2025-03-07 09:58] VITALS: BP 173/67; PULSE 75; RESP 16; TEMP 36.4; O2SAT 100
== END 2025-03-07 10:21 | disposition home or self-care (01) ==
PROVIDERS: Emergency Provider Nurse Practitioner; PCP Family Medicine
DX: S81.811A Laceration without foreign body, right lower leg, initial encounter (principal); L08.9 Local infection of the skin and subcutaneous tissue, unspecified; I10 Essential (primary) hypertension; E03.9 Hypothyroidism, unspecified; W45.8XXA Other foreign body or object entering through skin, initial encounter
CPT/HCPCS: 99213; G0463

== ENCOUNTER 2025-08-01 13:41 | Outpatient (CLI) | payer MEDICARE, SELFPAY ==
--- OUTSIDE RECORDS SUMMARY | 2010-06-09 18:00 | XMS_ITS | Continuity of Care Document ---
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 Name Role Phone [facility] Unavailable Unavail able Sickage, Joelle Unavailable Unavailable Procedures Procedure Date Frames SV Poly Carb Sph +/- 7.12 To +/- 20 D Se Medical Tax Eye Exam & Treatment Refraction SV Poly Carb Sph +/- 7.12 To +/- 20 D Au Tint Plastic, Non-Dorothy SV Poly Carb Sph +/- 7.12 To +/- 20 D Au Frames ux - Medical Eye Exam & Treatment Refraction SV Poly Carb Sph +/- 7.12 To +/- 20 D Au Tax - Medical SV Poly Carb Sph +/- 7.12 To +/- 20 D Au Tint Plastic, Non-Dorothy Frames ux Tax - Medical Frames ux SV Poly Carb Sph +/- 7.12 To +/- 20 D Au Anti-reflective Coating Tax - Medical Eye Exam & Treatment Refraction Office/outpatient Visit, Est SV Plastic Sphcyl [place] +/-4d, .12-2d Ja Frames Deluxe Tint Plastic, Non-Dorothy Tax - Medical Progressive Lens, Plastic Frames Deluxe Anti-reflective Coating Tax - Medical Advance Directives Directive Yes / No Effective Date File Name No Information Encounters Encounter Description Practice Location Reason(s) For Visit Diagnoses Date Provider Providers Copied on Encounter [facility], [address] [place] [address] [address], [place], [place], [address], [place] tel:[phone] [facility] No Information Sep-2 8-201 0 [facility] . [address] [facility], [address], [place], [address], [place]. tel:[phone] Referring Provider: Alton Quiroz OD A, [address], [place], [place], [facility]. tel:[phone] lting Provider: Joelle Stout, [address] [place] [address], [facility]. tel:[phone] [facility] Eye [facility], [address] [place] [address] [address], [place], [place], [address], [place] tel:[phone] [facility] No Information Sep-0 3-201 0 Quiroz OD Alton. [address], [address], [place], [address], [place]. tel:[phone] [facility], [address], [place], [place], [address], [place] tel:[phone] [facility] No Information Aug-0 4-200 9 [facility] . [address] [facility], [address], [place], [place], [address], [place]. tel:[phone] Consulting Provider: Joelle Stout, [address] [place] [address], [facility]. tel:[phone] [facility], [address], [place], [place], [address], [place] tel:[phone] [facility] No Information 0 200 9 [facility] . [address] [facility], [address], [place], [place], [address], [place]. tel:[phone] Referring Provider: Alton Quiroz OD Jesus, [address], [place], [address]. tel:[phone] lting Provider: Joelle Stout, [address] [place], [address]. tel:[phone] [facility], [address], [place], [place], [address], [place] tel:[phone] [facility] No Information 9 Quiroz OD Alton. [address], [address], [place], [address], [place]. tel:[phone] [facility], [address], [place], [place], [address], [place] tel:[phone] [facility] No Information 8 Mulqueeny OD Latrell. [address] [facility], [place], [place], [address], [place]. tel:[phone] Consulting Provider: Joelle Stout, [address] [place], [address]. tel:[phone] [facility], [address], [place], [place], [address], [place] tel:[phone] [facility] No Information 0 8 [facility] . [address] [facility], [address], [place], [place], [address], [place]. tel:[phone] Consulting Provider: Joelle Stout, [place], [address]. tel:[phone] [facility], [address], [place], [place], [address], [place] tel:[phone] [facility] No Information 0 5-200 8 [facility] . [address] [employer], [address], [place], [place], [address], [place]. tel:[phone] Referring Provider: Alton Quiroz OD A, [address], [place], [address]. tel:[phone] lting Provider: Joelle Stout, [address] [place] [address], [address]. tel:[phone] [facility], [address], [place], [place], [address], [place] tel:[phone] [facility] No Information -200 8 Quiroz OD Alton. [address] , [address], [place], [address], [place]. tel:[phone] Office/outpat ient Visit, [facility], [address], [place], [place], [address], [place] tel:[phone] [facility] No Information 3 1-200 7 Quiroz OD Alton. [address] , [address], [place], [address], [place]. tel:[phone] [facility], [address], [place], [place], [address], [place] tel:[phone] [facility] No Information 0 3-200 7 [facility] . [address] [facility], [address], [place], [place], [address], [place]. tel:[phone] Consulting Provider: Joelle Stout, [address] [place] [address], [address]. tel:[phone] [facility], [address] [place] [address] [address], [place], [place], [address], [place] tel:[phone] [facility] No Information 7 [facility] . [address] [facility], [address], [place], [place], [address], [place]. tel:[phone] Referring Provider: Qi Hand, [address], [place], [address]. tel:[phone] lting Provider: Joelle Stout, [address] [place] [address], [address]. tel:[phone] Family History Family Member Type Diagnosis Age At Onset No Information Payers Payer name Insurance type Covered democrat ID Authoriza tion(s) No Information Social History Type Description Quantity Date Captured Comments Sex Female Smoking Status No Information Chief Complaint And Reason For Visit No Information Reason For Referral Reason For Referral No Information History Of Present Illness Encounter Date Complaint History Of Prese nt Illness No Information Functional Status Date Functional Assessmen t No Information Instructions Date Instruction Additional Infor mation No Information Assessments Type Assessment Date No Information Patient Care Teams Name Effective Dates (start - stop) Status Members No Information
--- OUTSIDE RECORDS SUMMARY | 2010-06-09 18:00 | XMS_ITS | Continuity of Care Document ---
Author Organization [facility] [place] [address] [facility] yoon Lucas [address] [place] [phone] Phone Care Team Providers Care Construction Carpenter Name Role Phone [facility] Unavailable [...] Refraction Office/outpatient Visit, Est SV Plastic Sphcyl [place] +/-4d, .12-2d Ja Frames Deluxe Tint Plastic, Non-Dorothy Tax - Medical Progressive Lens, Plastic Frames Deluxe Anti-reflective Coating Tax - Medical Advance Directives Directive Yes / No Effective Date File Name No Information Encounters Encounter Description Practice Location Reason(s) For Visit Diagnoses Date Provider Providers Copied on Encounter [facility], [address] [place] [address] [address], [place], [place], [address], [place] tel:[phone] [facility] No Information Sep-2 8-201 0 [facility] . [address] [facility], [address], [place], [address], [place]. tel:[phone] Referring Provider: Alton Quiroz OD A, [address], [place], [place], [facility]. tel:[phone] lting Provider: Joelle Stout, [address] [place] [address], [facility]. tel:[phone] [facility], [address] [place] [address] [address], [place], [place], [address], [place] tel:[phone] [facility] No Information Sep-0 3-201 0 Quiroz OD Alton. [address], [address], [place], [address], [place]. tel:[phone] [facility], [address], [place], [place], [address], [place] tel:[phone] [facility] No Information Aug-0 4-200 9 [facility] . [address] [facility], [address], [place], [place], [address], [place]. tel:[phone] Consulting Provider: Joelle Stout, [address] [place] [address], [facility]. tel:[phone] [facility], [address] [address], [place], [place], [address], [place] tel:[phone] [facility] No Information 0 200 9 [facility] . [address] [facility], [address], [place], [place], [address], [place]. tel:[phone] Referring Provider: Alton Quiroz OD Jesus, [address], [place], [address]. tel:[phone] lting Provider: Joelle Stout, [address] [place], [address]. tel:[phone] [facility], [address] [address], [place], [place], [address], [place] tel:[phone] [facility] No Information 9 Quiroz OD Alton. [address], [address], [place], [address], [place]. tel:[phone] [facility], [address] [address], [place], [place], [address], [place] tel:[phone] [facility] No Information 8 Mulqueeny OD Latrell. [address] [facility], [place], [place], [address], [place]. tel:[phone] Consulting Provider: Joelle Stout, [address] [place], [address]. tel:[phone] [facility], [address] [address], [place], [place], [address], [place] tel:[phone] [facility] No Information 0 8 [facility] . [address] [facility], [address], [place], [place], [address], [place]. tel:[phone] Consulting Provider: Joelle Stout, [place], [address]. tel:[phone] [facility], [address] [address], [place], [place], [address], [place] tel:[phone] [facility] No Information 0 5-200 8 [facility] . [address] [employer], [address], [place], [place], [address], [place]. tel:[phone] Referring Provider: Alton Quiroz OD A, [address], [place], [address]. tel:[phone] lting Provider: Joelle Stout, [address] [place] [address], [address]. tel:[phone] [facility], [address] [address], [place], [place], [address], [place] tel:[phone] [facility] No Information -200 8 Quiroz OD Alton. [address] , [address], [place], [address], [place]. tel:[phone] Office/outpat ient Visit, [facility], [address] [address], [place], [place], [address], [place] tel:[phone] [facility] No Information 3 1-200 7 Quiroz OD Alton. [address] , [address], [place], [address], [place]. tel:[phone] [facility], [address] [address], [place], [place], [address], [place] tel:[phone] [facility] No Information 0 3-200 7 [facility] . [address] [facility], [address], [place], [place], [address], [place]. tel:[phone] Consulting Provider: Joelle Stout, [address] [place] [address], [address]. tel:[phone] [facility], [address] [place] [address] [address], [place], [place], [address], [place] tel:[phone] [facility] No Information 7 [facility] . [address] [facility], [address], [place], [place], [address], [place]. tel:[phone] Referring Provider: Qi Hand, [address], [place], [address]. tel:[phone] lting Provider: Joelle Stout, [address] [place] [address], [address]. tel:[phone] Family History Family Member Type Diagnosis Age At Onset No Information Payers Payer name Insurance type Covered republican ID Authoriza tion(s) No Information Social History [...]
--- OUTSIDE RECORDS SUMMARY | 2010-06-09 18:00 | XMS_ITS | Continuity of Care Document ---
Author Organization [facility] [place] Address [address] [facility] yoon Lucas [address] [place] [phone] Phone Care Team Providers Care Site Inspector Name Role Phone [facility] Unavailable [...] Refraction Office/outpatient Visit, Est SV Plastic Sphcyl [place] +/-4d, .12-2d Ja Frames Deluxe Tint Plastic, Non-Dorothy Tax - Medical Progressive Lens, Plastic Frames Deluxe Anti-reflective Coating Tax - Medical Advance Directives Directive Yes / No Effective Date File Name No Information Encounters Encounter Description Practice Location Reason(s) For Visit Diagnoses Date Provider Providers Copied on Encounter [facility], [address] [place] [address] [address], [place], [place], [address], [place] tel:[phone] [facility] No Information Sep-2 8-201 0 [facility] . [address] [facility], [address], [place], [address], [place]. tel:[phone] Referring Provider: Alton Quiroz OD A, [address], [place], [place], [facility]. tel:[phone] lting Provider: Joelle Stout, [address] [place] [address], [facility]. tel:[phone] [facility], [address] [place] [address] [address], [place], [place], [address], [place] tel:[phone] [facility] No Information Sep-0 3-201 0 Quiroz OD Alton. [address], [address], [place], [address], [place]. tel:[phone] [facility], [address] [place], [place], [place], [address], [place] tel:[phone] [facility] No Information Aug-0 4-200 9 [facility] . [address] [facility], [address], [place], [place], [address], [place]. tel:[phone] Consulting Provider: Joelle Stout, [address] [place] [address], [facility]. tel:[phone] [facility], [address] [address], [place], [place], [address], [place] tel:[phone] [facility] No Information 0 200 9 [facility] . [address] [facility], [address], [place], [place], [address], [place]. tel:[phone] Referring Provider: Alton Quiroz OD Jesus, [address], [place], [address]. tel:[phone] lting Provider: Joelle Stout, [address] [place], [address]. tel:[phone] [facility], [address] [address], [place], [place], [address], [place] tel:[phone] [facility] No Information 9 Quiroz OD Alton. [address], [address], [place], [address], [place]. tel:[phone] [facility], [address] [place] [address], [place], [place], [address], [place] tel:[phone] [facility] No Information 8 Mulqueeny OD Latrell. [address] [facility], [place], [place], [address], [place]. tel:[phone] Consulting Provider: Joelle Stout, [address] [place], [address]. tel:[phone] [facility], [address] [address], [place], [place], [address], [place] tel:[phone] [facility] No Information 0 8 [facility] . [address] [facility], [address], [place], [place], [address], [place]. tel:[phone] Consulting Provider: Joelle Stout, [place], [address]. tel:[phone] [facility], [address], [place], [place], [address], [place] tel:[phone] [facility] No Information 0 5-200 8 [facility] . [address], [address], [place], [place], [address], [place]. tel:[phone] Referring Provider: Alton Quiroz OD A, [address], [place], [address]. tel:[phone] lting Provider: Joelle Stout, [address] [place] [address], [address]. tel:[phone] [facility], [address] [address], [place], [place], [address], [place] tel:[phone] [facility] No Information -200 8 Quiroz OD Alton. [address] , [address], [place], [address], [place]. tel:[phone] Office/outpat ient Visit, [facility], [address] [place], [place], [place], [address], [place] tel:[phone] [facility] No Information 3 1-200 7 Quiroz OD Alton. [address] , [address], [place], [address], [place]. tel:[phone] [facility], [address] [place], [place], [place], [address], [place] tel:[phone] [facility] No Information 0 3-200 7 [facility] . [address] [facility], [address], [place], [place], [address], [place]. tel:[phone] Consulting Provider: Joelle Stout, [address] [place] [address], [address]. tel:[phone] [facility], [address] [place] [address] [address], [place], [place], [address], [place] tel:[phone] [facility] No Information 7 [facility] . [address] [facility], [address], [place], [place], [address], [place]. tel:[phone] Referring Provider: Qi Hand, [address], [place], [address]. tel:[phone] lting Provider: Joelle Stout, [address] [place] [address], [address]. tel:[phone] Family History Family Member Type Diagnosis Age At Onset No Information Payers Payer name Insurance type Covered libertarian ID Authoriza tion(s) No Information Social History [...]
--- OUTSIDE RECORDS SUMMARY | 2010-06-09 18:00 | XMS_ITS | Continuity of Care Document ---
Author Organization [employer] [facility] Address [address] [facility] yoon Lucas [address] [place] [phone] Phone Care Team Providers Care Pediatric Registered Nurse Name Role Phone [facility] Unavailable [...] Refraction Office/outpatient Visit, Est SV Plastic Sphcyl [place] +/-4d, .12-2d Ja Frames Deluxe Tint Plastic, Non-Dorothy Tax - Medical Progressive Lens, Plastic Frames Deluxe Anti-reflective Coating Tax - Medical Advance Directives Directive Yes / No Effective Date File Name No Information Encounters Encounter Description Practice Location Reason(s) For Visit Diagnoses Date Provider Providers Copied on Encounter [facility], [address] [place] [address] [address], [place], [place], [address], [place] tel:[phone] [facility] No Information Sep-2 8-201 0 [facility] . [address] [facility], [address], [place], [address], [place]. tel:[phone] Referring Provider: Alton Quiroz OD A, [address], [place], [place], [facility]. tel:[phone] lting Provider: Joelle Stout, [address] [place] [address], [facility]. tel:[phone] [facility], [address] [place] [address] [address], [place], [place], [address], [place] tel:[phone] [facility] No Information Sep-0 3-201 0 Quiroz OD Alton. [address], [address], [place], [address], [place]. tel:[phone] [facility], [address], [place], [place], [address], [place] tel:[phone] [facility] No Information Aug-0 4-200 9 [facility] . [address] [facility], [address], [place], [place], [address], [place]. tel:[phone] Consulting Provider: Joelle Stout, [address] [place] [address], [facility]. tel:[phone] [facility], [address], [place], [place], [address], [place] tel:[phone] [facility] No Information 0 200 9 [facility] . [address] [facility], [address], [place], [place], [address], [place]. tel:[phone] Referring Provider: Alton Quiroz OD Jesus, [address], [place], [address]. tel:[phone] lting Provider: Joelle Stout, [address] [place], [address]. tel:[phone] [facility], [address], [place], [place], [address], [place] tel:[phone] [facility] No Information 9 Quiroz OD Alton. [address], [address], [place], [address], [place]. tel:[phone] [facility], [address], [place], [place], [address], [place] tel:[phone] [facility] No Information 8 Mulqueeny OD Latrell. [address] [facility], [place], [place], [address], [place]. tel:[phone] Consulting Provider: Joelle Stout, [address] [place], [address]. tel:[phone] [facility], [address], [place], [place], [address], [place] tel:[phone] [facility] No Information 0 8 [facility] . [address] [facility], [address], [place], [place], [address], [place]. tel:[phone] Consulting Provider: Joelle Stout, [place], [address]. tel:[phone] [facility], [address], [place], [place], [address], [place] tel:[phone] [facility] No Information 0 5-200 8 [facility] . [address] [employer] [address], [place], [place], [address], [place]. tel:[phone] Referring Provider: Alton Quiroz OD A, [address], [place], [address]. tel:[phone] lting Provider: Joelle Stout, [address] [place] [address], [address]. tel:[phone] [facility], [address], [place], [place], [address], [place] tel:[phone] [facility] No Information -200 8 Quiroz OD Alton. [address] [facility] , [address], [place], [address], [place]. tel:[phone] Office/outpat ient Visit, [facility], [address], [place], [place], [address], [place] tel:[phone] [facility] No Information 3 1-200 7 Quiroz OD Alton. [address] , [address], [place], [address], [place]. tel:[phone] [facility], [address], [place], [place], [address], [place] tel:[phone] [facility] No Information 0 3-200 7 [facility] . [address] [facility] [facility], [address], [place], [place], [address], [place]. tel:[phone] Consulting Provider: Joelle Stout, [address] [place] [address], [address]. tel:[phone] [facility], [address] [place] [address] [address], [place], [place], [address], [place] tel:[phone] [facility] No Information 7 [facility] . [address] [facility], [address], [place], [place], [address], [place]. tel:[phone] Referring Provider: Qi Hand, [address], [place], [address]. tel:[phone] lting Provider: Joelle Stout, [address] [place] [address], [address]. tel:[phone] Family History Family Member Type Diagnosis Age At Onset No Information Payers Payer name Insurance type Covered constitution party ID Authoriza tion(s) No Information Social History [...]
--- OUTSIDE RECORDS SUMMARY | 2010-06-09 18:00 | XMS_ITS | Continuity of Care Document ---
Author Organization [employer] [facility] Address [address] [facility] yoon Lucas [address] [place] [phone] Phone Care Team Providers Care Rivet Tosser Name Role Phone [facility] Unavailable [...] Refraction Office/outpatient Visit, Est SV Plastic Sphcyl [place] +/-4d, .12-2d Ja Frames Deluxe Tint Plastic, Non-Dorothy Tax - Medical Progressive Lens, Plastic Frames Deluxe Anti-reflective Coating Tax - Medical Advance Directives Directive Yes / No Effective Date File Name No Information Encounters Encounter Description Practice Location Reason(s) For Visit Diagnoses Date Provider Providers Copied on Encounter [facility], [address] [place] [address] [address], [place], [place], [address], [place] tel:[phone] SEC [facility] No Information Sep-2 8-201 0 [facility] . [address] [facility], [address], [place], [address], [place]. tel:[phone] Referring Provider: Alton Quiroz OD A, [address], [place], [place], [facility]. tel:[phone] lting Provider: Joelle Stout, [address] [place] [address], [facility]. tel:[phone] [facility], [address] [place] [address] [address], [place], [place], [address], [place] tel:[phone] [facility] No Information Sep-0 3-201 0 Quiroz OD Alton. [address], [address], [place], [address], [place]. tel:[phone] [facility], [address], [place], [place], [address], [place] tel:[phone] [facility] No Information Aug-0 4-200 9 [facility] . [address] [facility], [address], [place], [place], [address], [place]. tel:[phone] Consulting Provider: Joelle Stout, [address] [place] [address], [facility]. tel:[phone] [facility], [address], [place], [place], [address], [place] tel:[phone] [facility] No Information 0 200 9 [facility] . [address] [facility], [address], [place], [place], [address], [place]. tel:[phone] Referring Provider: Alton Quiroz OD Jesus, [address], [place], [address]. tel:[phone] lting Provider: Joelle Stout, [address] [place], [address]. tel:[phone] [facility], [address], [place], [place], [address], [place] tel:[phone] [facility] No Information 9 Quiroz OD Alton. [address], [address], [place], [address], [place]. tel:[phone] [facility], [address], [place], [place], [address], [place] tel:[phone] [facility] No Information 8 Mulqueeny OD Latrell. [address] [facility], [place], [place], [address], [place]. tel:[phone] Consulting Provider: Joelle Stout, [address] [place], [address]. tel:[phone] [facility], [address], [place], [place], [address], [place] tel:[phone] [facility] No Information 0 8 [facility] . [address] [facility], [address], [place], [place], [address], [place]. tel:[phone] Consulting Provider: Joelle Stout, [place], [address]. tel:[phone] [facility], [address], [place], [place], [address], [place] tel:[phone] [facility] No Information 0 5-200 8 [facility] . [address], [address], [place], [place], [address], [place]. tel:[phone] Referring Provider: Alton Quiroz OD A, [address], [place], [address]. tel:[phone] lting Provider: Joelle Stout, [address] [place] [address], [address]. tel:[phone] [facility], [address], [place], [place], [address], [place] tel:[phone] [facility] No Information -200 8 Quiroz OD Alton. [address] [facility] , [address], [place], [address], [place]. tel:[phone] Office/outpat ient Visit, [facility], [address], [place], [place], [address], [place] tel:[phone] [facility] No Information 3 1-200 7 Quiroz OD Alotn. [address] [facility] [address] , [address], [place], [address], [place]. tel:[phone] [facility], [address], [place], [place], [address], [place] tel:[phone] [facility] No Information 0 3-200 7 [facility] . [address] [facility], [address], [place], [place], [address], [place]. tel:[phone] Consulting Provider: Joelle Stout, [address] [place] [address], [address]. tel:[phone] [facility], [address] [place] [address] [address], [place], [place], [address], [place] tel:[phone] [facility] No Information 7 [facility] . [address] [facility], [address], [place], [place], [address], [place]. tel:[phone] Referring Provider: Qi Hand, [address], [place], [address]. tel:[phone] lting Provider: Joelle Stout, [address] [place] [address], [address]. tel:[phone] Family History Family Member Type Diagnosis Age [...]
--- OUTSIDE RECORDS SUMMARY | 2010-06-09 18:00 | XMS_ITS | Continuity of Care Document ---
Author Organization [employer] [facility] Address [address] [facility] yoon Lucas [address] [place] [phone] Phone Care Team Providers Care Mouthpiece Maker Name Role Phone [facility] Unavailable [...] Refraction Office/outpatient Visit, Est SV Plastic Sphcyl [place] +/-4d, .12-2d Ja Frames Deluxe Tint Plastic, Non-Dorothy Tax - Medical Progressive Lens, Plastic Frames Deluxe Anti-reflective Coating Tax - Medical Advance Directives Directive Yes / No Effective Date File Name No Information Encounters Encounter Description Practice Location Reason(s) For Visit Diagnoses Date Provider Providers Copied on Encounter [facility], [address] [place] [address] [address], [place], [place], [address], [place] tel:[phone] [facility] No Information Sep-2 8-201 0 [facility] . [address] [facility], [address], [place], [address], [place]. tel:[phone] Referring Provider: Alton Quiroz OD A, [address], [place], [place], [facility]. tel:[phone] lting Provider: Joelle Stout, [address] [place] [address], [facility]. tel:[phone] [facility], [address] [place] [address] [address], [place], [place], [address], [place] tel:[phone] [facility] No Information Sep-0 3-201 0 Quiroz OD Alton. [address], [address], [place], [address], [place]. tel:[phone] [facility], [address], [place], [place], [address], [place] tel:[phone] [facility] No Information Aug-0 4-200 9 [facility] . [address] [facility], [address], [place], [place], [address], [place]. tel:[phone] Consulting Provider: Joelle Stout, [address] [place] [address], [facility]. tel:[phone] [facility], [address], [place], [place], [address], [place] tel:[phone] [facility] No Information 0 200 9 [facility] . [address] [facility], [address], [place], [place], [address], [place]. tel:[phone] Referring Provider: Alton Quiroz OD Jesus, [address], [place], [address]. tel:[phone] lting Provider: Joelle Stout, [address] [place], [address]. tel:[phone] [facility], [address], [place], [place], [address], [place] tel:[phone] [facility] No Information 9 Quiroz OD Alton[address], [address], [place], [address], [place]. tel:[phone] [facility], [address], [place], [place], [address], [place] tel:[phone] [facility] No Information 8 Mulqueeny OD Latrell. [address] [facility], [place], [place], [address], [place]. tel:[phone] Consulting Provider: Joelle Stout, [address] [place], [address]. tel:[phone] [facility], [address], [place], [place], [address], [place] tel:[phone] [facility] No Information 0 8 [facility] . [address] [facility], [address], [place], [place], [address], [place]. tel:[phone] Consulting Provider: Joelle Stout, [place], [address]. tel:[phone] [facility], [address], [place], [place], [address], [place] tel:[phone] [facility] No Information 0 5-200 8 [facility] . [address] [employer] [address], [place], [place], [address], [place]. tel:[phone] Referring Provider: Alton Quiroz OD A, [address], [place], [address]. tel:[phone] lting Provider: Joelle Stout, [address] [place] [address], [address]. tel:[phone] [facility], [address], [place], [place], [address], [place] tel:[phone] [facility] No Information -200 8 Quiroz OD Alton. [address] , [address], [place], [address], [place]. tel:[phone] Office/outpat ient Visit, [facility], [address], [place], [place], [address], [place] tel:[phone] [facility] No Information 3 1-200 7 Quiroz OD Alton. [address] , [address], [place], [address], [place]. tel:[phone] [facility], [address], [place], [place], [address], [place] tel:[phone] [facility] No Information 0 3-200 7 [facility] . [address] [facility], [address], [place], [place], [address], [place]. tel:[phone] Consulting Provider: Joelle Stout, [address] [place] [address], [address]. tel:[phone] [facility], [address] [place] [address] [address], [place], [place], [address], [place] tel:[phone] [facility] No Information 7 [facility] . [address] [facility], [address], [place], [place], [address], [place]. tel:[phone] Referring Provider: Qi Hand, [address], [place], [address]. tel:[phone] lting Provider: Joelle Stout, [address] [place] [address], [address]. tel:[phone] Family History Family Member Type Diagnosis Age At Onset No Information Payers Payer name Insurance type Covered alliance party ID Authoriza tion(s) No Information Social [...]
--- OUTSIDE RECORDS SUMMARY | 2010-06-09 18:00 | XMS_ITS | Continuity of Care Document ---
Author Organization [facility] [place] [address] [facility] yoon Lucas [address] [place] [phone] Phone Care Team Providers Care Grain Operations Manager Name Role Phone [facility] Unavailable [...] Refraction Office/outpatient Visit, Est SV Plastic Sphcyl [place] +/-4d, .12-2d Ja Frames Deluxe Tint Plastic, Non-Dorothy Tax - Medical Progressive Lens, Plastic Frames Deluxe Anti-reflective Coating Tax - Medical Advance Directives Directive Yes / No Effective Date File Name No Information Encounters Encounter Description Practice Location Reason(s) For Visit Diagnoses Date Provider Providers Copied on Encounter [facility], [address] [place] [address] [address], [place], [place], [address], [place] tel:[phone] SEC [facility] No Information Sep-2 8-201 0 [facility] . [address] [facility], [address], [place], [address], [place]. tel:[phone] Referring Provider: Alton Quiroz OD A, [address], [place], [place], [facility]. tel:[phone] lting Provider: Joelle Stout, [address] [place] [address], [facility]. tel:[phone] [facility], [address] [place] [address] [address], [place], [place], [address], [place] tel:[phone] [facility] No Information Sep-0 3-201 0 Quiroz OD Alton. [address], [address], [place], [address], [place]. tel:[phone] [facility], [address], [place], [place], [address], [place] tel:[phone] [facility] No Information Aug-0 4-200 9 [facility] . [address] [facility], [address], [place], [place], [address], [place]. tel:[phone] Consulting Provider: Joelle Stout, [address] [place] [address], [facility]. tel:[phone] [facility], [address], [place], [place], [address], [place] tel:[phone] [facility] No Information 0 200 9 [facility] . [address] [facility], [address], [place], [place], [address], [place]. tel:[phone] Referring Provider: Alton Quiroz OD Jesus, [address], [place], [address]. tel:[phone] lting Provider: Joelel Stout, [address] [place], [address]. tel:[phone] [facility], [address], [place], [place], [address], [place] tel:[phone] [facility] No Information 9 Quiroz OD Alton. [address], [address], [place], [address], [place]. tel:[phone] [facility], [address], [place], [place], [address], [place] tel:[phone] [facility] No Information 8 Mulqueeny OD Latrell. [address] [facility], [place], [place], [address], [place]. tel:[phone] Consulting Provider: Joelle Stout, [address] [place], [address]. tel:[phone] [facility], [address], [place], [place], [address], [place] tel:[phone] [facility] No Information 0 8 [facility] . [address] [facility], [address], [place], [place], [address], [place]. tel:[phone] Consulting Provider: Joelle Stout, [place], [address]. tel:[phone] [facility], [address], [place], [place], [address], [place] tel:[phone] [facility] No Information 0 5-200 8 [facility] . [address], [address], [place], [place], [address], [place]. tel:[phone] Referring Provider: Alton Quiroz OD A, [address], [place], [address]. tel:[phone] lting Provider: Joelle Stout, [address] [place] [address], [address]. tel:[phone] [facility], [address], [place], [place], [address], [place] tel:[phone] [facility] No Information -200 8 Quiroz OD Alton. [address] , [address], [place], [address], [place]. tel:[phone] Office/outpat ient Visit, [facility], [address], [place], [place], [address], [place] tel:[phone] [facility] No Information 3 1-200 7 Quiroz OD Alton. [address] , [address], [place], [address], [place]. tel:[phone] [facility], [address], [place], [place], [address], [place] tel:[phone] [facility] No Information 0 3-200 7 [facility] . [address] [facility], [address], [place], [place], [address], [place]. tel:[phone] Consulting Provider: Joelle Stout, [address] [place] [address], [address]. tel:[phone] [facility], [address] [place] [address] [address], [place], [place], [address], [place] tel:[phone] [facility] No Information 7 [facility] . [address] [facility], [address], [place], [place], [address], [place]. tel:[phone] Referring Provider: Qi Hand, [address], [place], [address]. tel:[phone] lting Provider: Joelle Stout, [address] [place] [address], [address]. tel:[phone] Family History Family Member Type Diagnosis Age [...]
--- OUTSIDE RECORDS SUMMARY | 2010-06-09 18:00 | XMS_ITS | Continuity of Care Document ---
Author Organization [employer] [facility] [place] Address [address] [facility] yoon Lucas [address] [place] [phone] Phone Care Team Providers Care Program Medical Director Name Role Phone [facility] Unavailable [...] To +/- 20 D Au Tint Plastic, Non-Doorthy Frames ux Tax - Medical Frames ux SV Poly Carb Sph +/- 7.12 To +/- 20 D Au Anti-reflective Coating Tax - Medical Eye Exam & Treatment Refraction Office/outpatient Visit, Est SV Plastic Sphcyl [place] +/-4d, .12-2d Ja Frames Deluxe Tint Plastic, Non-Dorothy Tax - Medical Progressive Lens, Plastic Frames Deluxe Anti-reflective Coating Tax - Medical Advance Directives Directive Yes / No Effective Date File Name No Information Encounters Encounter Description Practice Location Reason(s) For Visit Diagnoses Date Provider Providers Copied on Encounter [facility], [address] [place] [address] [address], [place], [place], [address], [place] tel:[phone] SEC [facility] No Information Sep-2 8-201 0 [facility] . [address] [facility], [address], [place], [address], [place]. tel:[phone] Referring Provider: Alton Quiroz OD A, [address], [place], [place], [facility]. tel:[phone] lting Provider: Joelle Stout, [address] [place] [address], [facility]. tel:[phone] [facility], [address] [place] [address] [address], [place], [place], [address], [place] tel:[phone] SEC [facility] No Information Sep-0 3-201 0 Quiroz OD Alton. [address], [address], [place], [address], [place]. tel:[phone] [facility], [address], [place], [place], [address], [place] tel:[phone] [facility] No Information Aug-0 4-200 9 [facility] . [address] [facility], [address], [place], [place], [address], [place]. tel:[phone] Consulting Provider: Joelle Stout, [address] [place] [address], [facility]. tel:[phone] [facility], [address], [place], [place], [address], [place] tel:[phone] SEC [facility] No Information 0 200 9 [facility] . [address] [facility], [address], [place], [place], [address], [place]. tel:[phone] Referring Provider: Alton Quiroz OD Jesus, [address], [place], [address]. tel:[phone] lting Provider: Joelle Stout, [address] [place], [address]. tel:[phone] [facility], [address], [place], [place], [address], [place] tel:[phone] SEC [facility] No Information 9 Quiroz OD Alton. [address], [address], [place], [address], [place]. tel:[phone] [facility], [address], [place], [place], [address], [place] tel:[phone] SEC [facility] No Information 8 Mulqueeny OD Latrell. [address] [facility], [place], [place], [address], [place]. tel:[phone] Consulting Provider: Joelle Stout, [address] [place], [address]. tel:[phone] [facility], [address], [place], [place], [address], [place] tel:[phone] [facility] No Information 0 8 [facility] . [address] [facility], [address], [place], [place], [address], [place]. tel:[phone] Consulting Provider: Joelle Stout, [place], [address]. tel:[phone] [facility], [address], [place], [place], [address], [place] tel:[phone] [facility] No Information 0 5-200 8 [facility] . [address], [address], [place], [place], [address], [place]. tel:[phone] Referring Provider: Alton Quiroz OD A, [address], [place], [address]. tel:[phone] lting Provider: Joelle Stout, [address] [place] [address], [address]. tel:[phone] [facility], [address], [place], [place], [address], [place] tel:[phone] [facility] No Information -200 8 Quiroz OD Alton. [address] , [address], [place], [address], [place]. tel:[phone] Office/outpat ient Visit, [facility], [address], [place], [place], [address], [place] tel:[phone] SEC [facility] No Information 3 1-200 7 Quiroz OD Alton. [address] , [address], [place], [address], [place]. tel:[phone] [facility], [address], [place], [place], [address], [place] tel:[phone] SEC [facility] No Information 0 3-200 7 [facility] . [address] [facility], [address], [place], [place], [address], [place]. tel:[phone] Consulting Provider: Joelle Stout, [address] [place] [address], [address]. tel:[phone] [facility], [address] [place] [address] [address], [place], [place], [address], [place] tel:[phone] [facility] No Information 7 [facility] . [address] [facility], [address], [place], [place], [address], [place]. tel:[phone] Referring Provider: iQ Hand, [address], [place], [address]. tel:[phone] lting Provider: Joelle Stout, [address] [place] [address], [address]. tel:[phone] Family History Family Member Type Diagnosis Age [...]
--- OUTSIDE RECORDS SUMMARY | 2010-06-09 18:00 | XMS_ITS | Continuity of Care Document ---
Author Organization [employer] [facility] [place] Address [address] [facility] yoon Lucas [address] [place] [phone] Phone Care Team Providers Care Bell Spinner Sousaphones Name Role Phone [facility] Unavailable [...] Refraction Office/outpatient Visit, Est SV Plastic Sphcyl [place] +/-4d, .12-2d Ja Frames Deluxe Tint Plastic, Non-Dorothy Tax - Medical Progressive Lens, Plastic Frames Deluxe Anti-reflective Coating Tax - Medical Advance Directives Directive Yes / No Effective Date File Name No Information Encounters Encounter Description Practice Location Reason(s) For Visit Diagnoses Date Provider Providers Copied on Encounter [facility], [address] [place] [address] [address], [place], [place], [address], [place] tel:[phone] SEC [facility] No Information Sep-2 8-201 0 [facility] . [address] [facility], [address], [place], [address], [place]. tel:[phone] Referring Provider: Alton Quiroz OD A, [address], [place], [place], [facility]. tel:[phone] lting Provider: Joelle Stout, [address] [place] [address], [facility]. tel:[phone] [facility], [address] [place] [address] [address], [place], [place], [address], [place] tel:[phone] [facility] No Information Sep-0 3-201 0 Quiroz OD Alton. [address], [address], [place], [address], [place]. tel:[phone] [facility], [address], [place], [place], [address], [place] tel:[phone] [facility] No Information Aug-0 4-200 9 [facility] . [address] [facility], [address], [place], [place], [address], [place]. tel:[phone] Consulting Provider: Joelle Stout, [address] [place] [address], [facility]. tel:[phone] [facility], [address] [place], [place], [place], [address], [place] tel:[phone] [facility] No Information 0 200 9 [facility] . [address] [facility], [address], [place], [place], [address], [place]. tel:[phone] Referring Provider: Alton Quiroz OD Jesus, [address], [place], [address]. tel:[phone] lting Provider: Joelle Stout, [address] [place], [address]. tel:[phone] [facility], [address], [place], [place], [address], [place] tel:[phone] [facility] No Information 9 Quiroz OD Alton. [address], [address], [place], [address], [place]. tel:[phone] [facility], [address], [place], [place], [address], [place] tel:[phone] [facility] No Information 8 Mulqueeny OD Latrell. [address] [facility], [place], [place], [address], [place]. tel:[phone] Consulting Provider: Joelle Stout, [address] [place], [address]. tel:[phone] [facility], [address], [place], [place], [address], [place] tel:[phone] [facility] No Information 0 8 [facility] . [address] [facility], [address], [place], [place], [address], [place]. tel:[phone] Consulting Provider: Joelle Stout, [place], [address]. tel:[phone] [facility], [address], [place], [place], [address], [place] tel:[phone] [facility] No Information 0 5-200 8 [facility] . [address], [address], [place], [place], [address], [place]. tel:[phone] Referring Provider: Alton Quiroz OD A, [address], [place], [address]. tel:[phone] lting Provider: Joelle Stout, [address] [place] [address], [address]. tel:[phone] [facility], [address], [place], [place], [address], [place] tel:[phone] [facility] No Information -200 8 Quiroz OD Alton. [address] , [address], [place], [address], [place]. tel:[phone] Office/outpat ient Visit, [facility], [address], [place], [place], [address], [place] tel:[phone] [facility] No Information 3 1-200 7 Quiroz OD Alton. [address] , [address], [place], [address], [place]. tel:[phone] [facility], [address], [place], [place], [address], [place] tel:[phone] [facility] No Information 0 3-200 7 [facility] . [address] [facility], [address], [place], [place], [address], [place]. tel:[phone] Consulting Provider: Joelle Stout, [address] [place] [address], [address]. tel:[phone] [facility], [address] [place] [address] [address], [place], [place], [address], [place] tel:[phone] [facility] No Information 7 [facility] . [address] [facility], [address], [place], [place], [address], [place]. tel:[phone] Referring Provider: Qi Hand, [address], [place], [address]. tel:[phone] lting Provider: Joelle Stout, [address] [place] [address], [address]. tel:[phone] Family History Family Member Type Diagnosis Age [...]
--- OUTSIDE RECORDS SUMMARY | 2010-06-09 18:00 | XMS_ITS | Continuity of Care Document ---
Author Organization [facility] Address [address] [facility] yoon Lucas [address] [place] [phone] Phone Care Team Providers Care Fire Safety Manager Name Role Phone [facility] [...] Refraction Office/outpatient Visit, Est SV Plastic Sphcyl [place] +/-4d, .12-2d Ja Frames Deluxe Tint Plastic, Non-Dorothy Tax - Medical Progressive Lens, Plastic Frames Deluxe Anti-reflective Coating Tax - Medical Advance Directives Directive Yes / No Effective Date File Name No Information Encounters Encounter Description Practice Location Reason(s) For Visit Diagnoses Date Provider Providers Copied on Encounter [facility], [address] [place] [address] [address], [place], [place], [address], [place] tel:[phone] [facility] No Information Sep-2 8-201 0 [facility] . [address] [facility], [address], [place], [address], [place]. tel:[phone] Referring Provider: Alton Quiroz OD A, [address], [place], [place], [facility]. tel:[phone] lting Provider: Joelle Stout, [address] [place] [address], [facility]. tel:[phone] [facility], [address] [place] [address] [address], [place], [place], [address], [place] tel:[phone] [facility] No Information Sep-0 3-201 0 Quiroz OD Alton. [address], [address], [place], [address], [place]. tel:[phone] [facility], [address], [place], [place], [address], [place] tel:[phone] [facility] No Information Aug-0 4-200 9 [facility] . [address] [facility], [address], [place], [place], [address], [place]. tel:[phone] Consulting Provider: Joelle Stout, [address] [place] [address], [facility]. tel:[phone] [facility], [address], [place], [place], [address], [place] tel:[phone] [facility] No Information 0 200 9 [facility] . [address] [facility], [address], [place], [place], [address], [place]. tel:[phone] Referring Provider: Alton Quiroz OD Jesus, [address], [place], [address]. tel:[phone] lting Provider: Joelle Stout, [address] [place], [address]. tel:[phone] [facility], [address], [place], [place], [address], [place] tel:[phone] [facility] No Information 9 Quiroz OD Alton. [address], [address], [place], [address], [place]. tel:[phone] [facility], [address], [place], [place], [address], [place] tel:[phone] [facility] No Information 8 Mulqueeny OD Latrell. [address] [facility], [place], [place], [address], [place]. tel:[phone] Consulting Provider: Joelle Stout, [address] [place], [address]. tel:[phone] [facility], [address], [place], [place], [address], [place] tel:[phone] [facility] No Information 0 8 [facility] . [address] [facility], [address], [place], [place], [address], [place]. tel:[phone] Consulting Provider: Joelle Stout, [place], [address]. tel:[phone] [facility], [address], [place], [place], [address], [place] tel:[phone] [facility] No Information 0 5-200 8 [facility] . [address] [employer], [address], [place], [place], [address], [place]. tel:[phone] Referring Provider: Alton Quiroz OD A, [address], [place], [address]. tel:[phone] lting Provider: Joelle Stout, [address] [place] [address], [address]. tel:[phone] [facility], [address], [place], [place], [address], [place] tel:[phone] [facility] No Information -200 8 Quiroz OD Alton. [address] , [address], [place], [address], [place]. tel:[phone] Office/outpat ient Visit, [facility], [address], [place], [place], [address], [place] tel:[phone] [facility] No Information 3 1-200 7 Quiroz OD Alton. [address] , [address], [place], [address], [place]. tel:[phone] [facility], [address], [place], [place], [address], [place] tel:[phone] [facility] No Information 0 3-200 7 [facility] . [address] [facility], [address], [place], [place], [address], [place]. tel:[phone] Consulting Provider: Joelle Stout, [address] [place] [address], [address]. tel:[phone] [facility], [address] [place] [address] [address], [place], [place], [address], [place] tel:[phone] [facility] No Information 7 [facility] . [address] [facility], [address], [place], [place], [address], [place]. tel:[phone] Referring Provider: Qi Hand, [address], [place], [address]. tel:[phone] lting Provider: Joelle Stout, [address] [place] [address], [address]. tel:[phone] Family History Family Member Type Diagnosis Age [...]
--- OUTSIDE RECORDS SUMMARY | 2010-06-09 18:00 | XMS_ITS | Continuity of Care Document ---
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 Metal Sprayer Production Name Role Phone [facility] Unavailable [...] Refraction Office/outpatient Visit, Est SV Plastic Sphcyl [place] +/-4d, .12-2d Ja Frames Deluxe Tint Plastic, Non-Dorothy Tax - Medical Progressive Lens, Plastic Frames Deluxe Anti-reflective Coating Tax - Medical Advance Directives Directive Yes / No Effective Date File Name No Information Encounters Encounter Description Practice Location Reason(s) For Visit Diagnoses Date Provider Providers Copied on Encounter [facility], [address] [place] [address] [address], [place], [place], [address], [place] tel:[phone] [facility] No Information Sep-2 8-201 0 [facility] . [address] [facility], [address], [place], [address], [place]. tel:[phone] Referring Provider: Alton Quiroz OD A, [address], [place], [place], [facility]. tel:[phone] lting Provider: Joelle Stout, [address] [place] [address], [facility]. tel:[phone] [facility], [address] [place] [address] [address], [place], [place], [address], [place] tel:[phone] [facility] No Information Sep-0 3-201 0 Quiroz OD Alton. [address], [address], [place], [address], [place]. tel:[phone] [facility], [address], [place], [place], [address], [place] tel:[phone] [facility] No Information Aug-0 4-200 9 [facility] . [address] [facility], [address], [place], [place], [address], [place]. tel:[phone] Consulting Provider: Joelle Stout, [address] [place] [address], [facility]. tel:[phone] [facility], [address], [place], [place], [address], [place] tel:[phone] [facility] No Information 0 200 9 [facility] . [address] [facility], [address], [place], [place], [address], [place]. tel:[phone] Referring Provider: Alton Quiroz OD Jesus, [address], [place], [address]. tel:[phone] lting Provider: Joelle Stout, [address] [place], [address]. tel:[phone] [facility], [address], [place], [place], [address], [place] tel:[phone] [facility] No Information 9 Quiroz OD Alton. [address], [address], [place], [address], [place]. tel:[phone] [facility], [address], [place], [place], [address], [place] tel:[phone] [facility] No Information 8 Mulqueeny OD Latrell. [address] [facility], [place], [place], [address], [place]. tel:[phone] Consulting Provider: Joelle Stout, [address] [place], [address]. tel:[phone] [facility], [address], [place], [place], [address], [place] tel:[phone] [facility] No Information 0 8 [facility] . [address] [facility], [address], [place], [place], [address], [place]. tel:[phone] Consulting Provider: Joelle Stout, [place], [address]. tel:[phone] [facility], [address], [place], [place], [address], [place] tel:[phone] [facility] No Information 0 5-200 8 [facility] . [address] [employer], [address], [place], [place], [address], [place]. tel:[phone] Referring Provider: Alton Quiroz OD A, [address], [place], [address]. tel:[phone] lting Provider: Joelle Stout, [address] [place] [address], [address]. tel:[phone] [facility], [address], [place], [place], [address], [place] tel:[phone] [facility] No Information -200 8 Quiroz OD Alton. [address] , [address], [place], [address], [place]. tel:[phone] Office/outpat ient Visit, [facility], [address], [place], [place], [address], [place] tel:[phone] [facility] No Information 3 1-200 7 Quiroz OD Alton. [address] , [address], [place], [address], [place]. tel:[phone] [facility], [address], [place], [place], [address], [place] tel:[phone] [facility] No Information 0 3-200 7 [facility] . [address] [facility], [address], [place], [place], [address], [place]. tel:[phone] Consulting Provider: Joelle Stout, [address] [place] [address], [address]. tel:[phone] [facility], [address] [place] [address] [address], [place], [place], [address], [place] tel:[phone] [facility] No Information 7 [facility] . [address] [facility], [address], [place], [place], [address], [place]. tel:[phone] Referring Provider: Qi Hand, [address], [place], [address]. tel:[phone] lting Provider: Joelle Stout, [address] [place] [address], [address]. tel:[phone] Family History Family Member Type Diagnosis Age [...]
--- OUTSIDE RECORDS SUMMARY | 2010-06-09 18:00 | XMS_ITS | Continuity of Care Document ---
Author Organization [facility] Address [address] [facility] yoon Lucas [address] [place] [phone] Phone Care Team Providers Care Application Development Liaison Name Role Phone [facility] Unavailable [...] Refraction Office/outpatient Visit, Est SV Plastic Sphcyl [place] +/-4d, .12-2d Ja Frames Deluxe Tint Plastic, Non-Dorothy Tax - Medical Progressive Lens, Plastic Frames Deluxe Anti-reflective Coating Tax - Medical Advance Directives Directive Yes / No Effective Date File Name No Information Encounters Encounter Description Practice Location Reason(s) For Visit Diagnoses Date Provider Providers Copied on Encounter [facility], [address] [place] [address] [address], [place], [place], [address], [place] tel:[phone] [facility] No Information Sep-2 8-201 0 [facility] . [address] [facility], [address], [place], [address], [place]. tel:[phone] Referring Provider: Alton Quiroz OD A, [address], [place], [place], [facility]. tel:[phone] lting Provider: Joelle Stout, [address] [place] [address], [facility]. tel:[phone] [facility], [address] [place] [address] [address], [place], [place], [address], [place] tel:[phone] [facility] No Information Sep-0 3-201 0 Quiroz OD Alton. [address], [address], [place], [address], [place]. tel:[phone] [facility], [address], [place], [place], [address], [place] tel:[phone] [facility] No Information Aug-0 4-200 9 [facility] . [address] [facility], [address], [place], [place], [address], [place]. tel:[phone] Consulting Provider: Joelle Stout, [address] [place] [address], [facility]. tel:[phone] [facility], [address], [place], [place], [address], [place] tel:[phone] [facility] No Information 0 200 9 [facility] . [address] [facility], [address], [place], [place], [address], [place]. tel:[phone] Referring Provider: Alton Quiroz OD Jesus, [address], [place], [address]. tel:[phone] lting Provider: Joelle Stout, [address] [place], [address]. tel:[phone] [facility], [address], [place], [place], [address], [place] tel:[phone] [facility] No Information 9 Quiroz OD Alton. [address], [address], [place], [address], [place]. tel:[phone] [facility], [address], [place], [place], [address], [place] tel:[phone] [facility] No Information 8 Mulqueeny OD Latrell. [address] [facility], [place], [place], [address], [place]. tel:[phone] Consulting Provider: Joelle Stout, [address] [place], [address]. tel:[phone] [facility], [address], [place], [place], [address], [place] tel:[phone] [facility] No Information 0 8 [facility] . [address] [facility], [address], [place], [place], [address], [place]. tel:[phone] Consulting Provider: Joelle Stout, [place], [address]. tel:[phone] [facility], [address], [place], [place], [address], [place] tel:[phone] [facility] No Information 0 5-200 8 [facility] . [address] [employer], [address], [place], [place], [address], [place]. tel:[phone] Referring Provider: Alton Quiroz OD A, [address], [place], [address]. tel:[phone] lting Provider: Joelle Stout, [address] [place] [address], [address]. tel:[phone] [facility], [address], [place], [place], [address], [place] tel:[phone] [facility] No Information -200 8 Quiroz OD Alton. [address] , [address], [place], [address], [place]. tel:[phone] Office/outpat ient Visit, [facility], [address], [place], [place], [address], [place] tel:[phone] [facility] No Information 3 1-200 7 Quiroz OD Alton. [address] , [address], [place], [address], [place]. tel:[phone] [facility], [address], [place], [place], [address], [place] tel:[phone] [facility] No Information 0 3-200 7 [facility] . [address] [facility], [address], [place], [place], [address], [place]. tel:[phone] Consulting Provider: Joelle Stout, [address] [place] [address], [address]. tel:[phone] [facility], [address] [place] [address] [address], [place], [place], [address], [place] tel:[phone] [facility] No Information 7 [facility] . [address] [facility], [address], [place], [place], [address], [place]. tel:[phone] Referring Provider: Qi Hand, [address], [place], [address]. tel:[phone] lting Provider: Joelle Stout, [address] [place] [address], [address]. tel:[phone] Family History Family Member Type Diagnosis Age At Onset No Information Payers Payer name Insurance type Covered green party ID Authoriza tion(s) No Information Social [...]
--- OUTSIDE RECORDS SUMMARY | 2020-04-18 23:00 | XMS_ITS | Encounter Summary ---
Author Organization [facility] Healthcare Address [address] [place] [address] Care Team Providers Care Animal Bounty Hunter Name Role Phone Unavailable Primary Care Provider Unavailabl e Reason for Visit * Diagnostic Imaging (Routine) - Pending Review Specialty Diagnoses / Procedures Referred By Contac t Referred To Contact Procedures Breast Imaging Diagnostic Outside Reference Aft, Clare Reddy [place] PhD [address] [place] [address] Phone: tel: fax: Referral ID Status Reason Start Date Expiration Date V isits Requested Visits Authorized [id number] Pending Review 07/21/2024 08/20/2025 1 1 Encounter Details Date Type Department Care Team (Late st Contact Info) Description 04/19/2020 Hospital Encounter [facility] [address] [place] [id number] Social History Tobacco Use Types Packs/Day Years Used Date Smoking Tobacco: Never Smokeless Tobacco: Never Comments No Sex and Gender Information Value Date Recorded Sex Assigned at Not on file Legal Sex Female 7:53 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 Gender Identity Not on file Sexual Orientation Not on file documented as of this encounter Plan of Treatment Not on file documented as of this encounter Procedures Procedure Name Priority Date/Time Associated Diagnosis Comments BREAST IMAGING MG DIAGNOSTIC OUTSIDE REFERENCE Routine 04/19/2020 12:00 AM CDT documented in this encounter Results * Breast Imaging Diagnostic Outside Reference (04/19/2020 12:00 AM CDT) Impressions RAD_MAMMO_[facility] - 07/21/2024 3:14 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 These images are for Reference purposes only and have not been reviewed by [facility] Radiology. There will be no report generated by a [facility] Radiologist. Narrative RAD_MAMMO_[facility] - 07/21/2024 3:14 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 EXAMINATION: Images For Reference Purposes Only us Clare Renner MD PhD IMG MAMMO PROCEDURES Final Result [facility]_MAMMO_[facility] documented in this encounter Visit Diagnoses Not on filedocumented in this encounter
--- OUTSIDE RECORDS SUMMARY | 2025-07-30 10:18 | XMS_ITS | Encounter Summary ---
Author Organization [facility] Healthcare Address [address] [place] [address] Care Team Providers Care Java Application Developer Name Role Phone Maryjane Wilson MD Unavailable [phone] Marco A Sullivan DO Primary Care Provider Reason for Referral * Diagnostic Imaging (Routine) - Closed Specialty Diagnoses / Procedures Referred By Contac t Referred To Contact Diagnoses Screening mammogram, encounter for Procedures Screening Mammogram Bilateral W Florentin Screening Mammogram, Self Referral ID Status Reason Start Date Expiration Date Visits Re quested Visits Authorized [id number] Closed 07/26/2025 08/25/2026 1 1 IZATION REVIEW SPECIALIST * Diagnostic Imaging (Routine) - Closed Specialty Diagnoses / Procedures Referred By Contac t Referred To Contact Diagnoses Screening mammogram, encounter for Procedures Screening Mammogram Bilateral W Florentin Screening Mammogram, Self Referral ID Status Reason Start Date Expiration Date Visits Re quested Visits Authorized [id number] Closed 07/26/2025 08/25/2026 1 1 IZATION REVIEW SPECIALIST Reason for Visit * Diagnostic Imaging (Routine) - Closed Specialty Diagnoses / Procedures Referred By Contac t Referred To Contact Diagnoses Screening mammogram, encounter for Procedures Screening Mammogram Bilateral W Florentin Screening Mammogram, Self Referral ID Status Reason Start Date Expiration Date Visits Re quested Visits Authorized [id number] Closed 07/26/2025 08/25/2026 1 1 Encounter Details Date Type Department Care Team (Latest Contact Info) Description 07/30/2025 10:18 AM UTILIZATION REVIEW SPECIALIST - 07/30/2025 11:59 PM UTILIZATION REVIEW SPECIALIST Hospital Encounter [id number] [place] [address] Screening mammogram, encounter for Discharge Disposition: Discharge to home or self care Social History Tobacco Use Types Packs/Day Years Used Date Smoking Tobacco: Never Smokeless Tobacco: Never Comments No Sex and Gender Information Value Date Recorded Sex Assigned at Not on file Legal Sex Female 7:53 PM UTILIZATION REVIEW SPECIALIST Gender Identity Not on file Sexual Orientation Not on file documented as of this encounter Medications at Time of Discharge cholecalciferol (Vitamin D3) 1,000 unit capsule ergocalciferol (VITAMIN D) 50,000 unit capsule TAKE 1 CAPSULE BY MOUTH 3 TIMES A MONTH WITH FOOD 12/30/2020 estradioL (ESTRACE) 1 mg tablet 1 tablet (1 mg total) estradioL (ESTRACE) 1 mg tablet Take 1 tablet (1 mg total) by mouth daily 11/06/2020 estrogens, conjugated, (Premarin) vaginal cream Insert into the vagina HYDROcodone-ibupro fen 10-200 mg tablet ipratropium (ATROVENT) 42 mcg (0.06 %) nasal spray SPRAY TWICE IN EACH NOSTRIL TWICE DAILY NEEDED 10/15/2020 levothyroxine (SYNTHROID) 25 mcg tablet TAKE 1 TABLET BY MOUTH EVERY THIRD DAY 11/08/2020 losartan (COZAAR) 100 mg tablet Take 1 tablet (100 mg total) by mouth daily 10/30/2020 nitrofurantoin monohydrate (MACROBID) 100 mg capsule Take 1 capsule (100 mg total) by mouth 2 (two) times a day 11/27/2020 oxybutynin (DITROPAN) 5 mg tablet documented as of this encounter Discharge Disposition Disposition Code Departure Means Destination Discharge to home or self care documented in this encounter Plan of Treatment Not on file documented as of this encounter Procedures Procedure Name Priority Date/Time Associated Diagnosis Comments SCREENING MAMMOGRAM BILATERAL W FLORENTIN Schedule Routine, Read Routine (OP Routine) 07/30/2025 10:51 AM UTILIZATION REVIEW SPECIALIST Screening mammogram, encounter for documented in this encounter Results * Screening Mammogram Bilateral W Florentin (07/30/2025 10:51 AM UTILIZATION REVIEW SPECIALIST) Anatomical Region Laterality Modality Breast Bilateral Mammography Impressions 07/30/2025 11:46 AM UTILIZATION REVIEW SPECIALIST Bilateral No evidence of malignancy in either breast. OVERALL BI-RADS FINAL ASSESSMENT: 1 - Negative RECOMMENDATION: Recommend bilateral annual screening mammography. Narrative 07/30/2025 11:46 AM UTILIZATION REVIEW SPECIALIST EXAMINATION: Screening Mammogram Bilateral W Florentin: 07/30/2025 COMPARISON: Relevant prior studies available at the time of interpretation were reviewed, including the most recent mammogram on: 07/24/2024. TECHNIQUE: Mammography was performed with 2D and 3D digital breast tomosynthesis (DBT) images. CAD was utilized. BREAST PARENCHYMAL COMPOSITION: The breasts are extremely dense, which lowers the sensitivity of mammography. FINDINGS: Bilateral There is no suspicious mass, calcification, or architectural distortion in either breast. There is a biopsy marker clip in the right breast. There are benign calcifications in both breasts. us Self Screening Mammogram IMG MAMMO PROCEDURES Fi nal Result documented in this encounter Visit Diagnoses Diagnosis Screening mammogram, encounter for documented in this encounter Care Teams Java Application Developer Relationship Specialty Start Date End Date Marco A Sullivan DO [address] [place] [address] PCP - General Internal Medicine 07/26/25 Maryjane Wilson MD [address] [place] [address] Referring Physician Gynecology 12/19/20 documented as of this encounter
--- OUTSIDE RECORDS SUMMARY | 2025-08-01 20:26 | XMS_ITS | Clinical Summary ---
Author Organization [facility] Address [address] [place] [address] Care Team Providers Care Performance Test Consultant Name Role Phone Marco A Sullivan DO Primary Care Provider [phone] Social History Tobacco Use Types Packs/Day Years Used Date Smoking Tobacco: Never Assessed Comments Unknown Sex and Gender Information Value Date Recorded Sex Assigned at Not on file Legal Sex Female 7:15 PM CDT Gender Identity Not on file Sexual Orientation Not on file Plan of Treatment Health Maintenance Due Date Last Done Comments Hepatitis C 1964 DTaP, Tdap and Td Vaccines ( 1 - Tdap) 1965 Pneumococcal Vaccine: 50+ Ye ars (1 of 1 - PCV) 1996 Zoster Vaccines (1 of 2) 1996 Annual Medicare Wellness Visit 2011 Dexa Scan (General) 2011 RSV Immunization or 60+ Years (1 - 1-dose 75+ series) 2021 COVID-19 Vaccine (2024-2 6 season) 2025 Influenza Adult (#1) 2025 Hepatitis A Vaccines Aged Out No long er eligible based on patient's age to complete this topic Meningococcal B Vaccine Aged Out No l onger eligible based on patient's age to complete this topic Meningococcal Vaccine Aged Out No nadine joanne eligible based on patient's age to complete this topic RSV Immunizations Under 20 Months Aged Out No longer eligible based on patient's age to complete this topic Insurance MEDICARE ADVANTAGE OTHER on file [facility] MEDICARE Care Teams Performance Test Consultant Relationship Specialty Start Date End Date Marco A Sullivan DO [address] [address] PCP - General INTERNAL MEDICINE 12/22/21
--- OUTSIDE RECORDS SUMMARY | 2025-08-01 20:26 | XMS_ITS | Clinical Summary ---
Author Organization [facility] Address Formerly [facility] [place] [address] Care Team Providers Care Ware Server Name Role Phone Maryjane Wilson MD Unavailable [phone] Marco A Sullivan DO Primary Care Provider [phone] Allergies Active Allergy Reactions Criticality Noted Date Comments Sulfa (Sulfonamide Antibiotics) Nausea only Reaction: Nausea, Medications cholecalciferol (Vitamin D3) 1,000 unit capsule Active ergocalciferol (VITAMIN D) 50,000 unit capsule TAKE 1 CAPSULE BY MOUTH 3 TIMES A MONTH WITH FOOD 12/30/2020 Active estradioL (ESTRACE) 1 mg tablet 1 tablet (1 mg total) Active estradioL (ESTRACE) 1 mg tablet Take 1 tablet (1 mg total) by mouth daily 11/06/2020 Active estrogens, conjugated, (Premarin) vaginal cream Insert into the vagina Active HYDROcodone-ibup rofen 10-200 mg tablet Active ipratropium (ATROVENT) 42 mcg (0.06 %) nasal spray SPRAY TWICE IN EACH NOSTRIL TWICE DAILY NEEDED 10/15/2020 Active levothyroxine (SYNTHROID) 25 mcg tablet TAKE 1 TABLET BY MOUTH EVERY THIRD DAY 11/08/2020 Active losartan (COZAAR) 100 mg tablet Take 1 tablet (100 mg total) by mouth daily 10/30/2020 Active nitrofurantoin monohydrate (MACROBID) 100 mg capsule Take 1 capsule (100 mg total) by mouth 2 (two) times a day 11/27/2020 Active oxybutynin (DITROPAN) 5 mg tablet Active Active Problems Problem Noted Date Diagnosed Date Abnormal mammography 10/06/2016 Encounters Date Type Department Care Team Description 07/30/2025 10:18 AM DIAMOND GRINDER - 07/30/2025 11:59 PM DIAMOND GRINDER Hospital Encounter [address] [address] Screening mammogram, encounter for Discharge Disposition: Discharge to home or self care 07/09/[address] [address] Referral, Self from Last 3 Months Surgical History Surgery Date Site/Laterality Comments BREAST BIOPSY HYSTERECTOMY Medical History Medical History Date Comments Hypertension Heart disease Arthritis Family History Medical History Relation Name Comments Breast cancer Cousin Lung cancer Father Lung cancer Sister Relation Name Status Comments Cousin Father Sister Social History Tobacco Use Types Packs/Day Years Used Date Smoking Tobacco: Never Smokeless Tobacco: Never Comments No Sex and Gender Information Value Date Recorded Sex Assigned at Not on file Legal Sex Female 7:53 PM DIAMOND GRINDER Gender Identity Not on file Sexual Orientation Not on file Obstetrics History Para Term AB IAB SAB Ectopic Multiple Livin g Live Births 1 1 Date Outcome GA Total Labor Labor/2nd/3rd Weight Sex Type Anes PTL Raiza A1 A5 Name Clin Last Filed Vital Signs Vital Sign Reading Time Taken Comments Blood Pressure - - Pulse - - Temperature - - Respiratory Rate - - Oxygen Saturation - - Inhaled Oxygen Concentration - - Weight 49.4 kg (109 lb) 07/24/2024 2:06 PM DIAMOND GRINDER Height 162.6 cm (5' 4) 07/24/2024 2:06 PM DIAMOND GRINDER Body Mass Index 18.71 07/24/2024 2:06 PM DIAMOND GRINDER Plan of Treatment Health Maintenance Due Date Last Done Comments Depression Screening 1946 Fall Risk Assessment 1945 Hepatitis C Screening 1946 Osteoporosis Screening-Bone Density Scan 1946 DTaP/Tdap/Td Vaccine (1 - Tdap) 1957 Hepatitis B Screening 1964 Pneumococcal vaccine 65+ (1 of 1 - PCV) 1996 Zoster Vaccine (1 of 2) 1996 Well Visit 65+ 2011 Influenza Vaccine (#1) 2025 4, 07/02/2020, 06/29/2020, Additional history exists Breast Cancer Screening-Mammogram Discontinued 07/30/2025, 07/24/2024, 07/06/2022, Additional history exists Procedures Procedure Name Priority Date/Time Associated Diagnosis Comments SCREENING MAMMOGRAM BILATERAL W KORY Schedule Routine, Read Routine (OP Routine) 07/30/2025 10:51 AM DIAMOND GRINDER Screening mammogram, encounter for from Last 3 Months Results * Screening Mammogram Bilateral W Kory (07/30/2025 10:51 AM DIAMOND GRINDER) Anatomical Region Laterality Modality Breast Bilateral Mammography Impressions 07/30/2025 11:46 AM DIAMOND GRINDER Bilateral No evidence of malignancy in either breast. OVERALL BI-RADS FINAL ASSESSMENT: 1 - Negative RECOMMENDATION: Recommend bilateral annual screening mammography. Narrative 07/30/2025 11:46 AM DIAMOND GRINDER EXAMINATION: Screening Mammogram Bilateral W Kory: 07/30/2025 COMPARISON: Relevant prior studies available at [...] Mammogram IMG MAMMO PROCEDURES Fi nal Result from Last 3 Months Insurance [facility] MEDICARE ADVANTAGE [facility] MEDIC[facility] ADVANTAGE UHC MEDICARE ADVANTAGE [place] [id number] Care Teams Ware Server Relationship Specialty Start Date End Date Macro A Sullivan DO [address] [place] [address] PCP - General Internal Medicine 07/26/25 Maryjane Wilson MD [address] [place] [id number] Referring Physician Gynecology 12/19/20
== END 2025-08-01 13:42 | disposition home or self-care (01) ==
LOC: ANHAUDIO 13:41
PROVIDERS: PCP Nurse Practitioner; Visit Provider Otolaryngology
DX: H90.3 Sensorineural hearing loss, bilateral (principal); R42 Dizziness and giddiness
CPT/HCPCS: 92557; 92567